=== PATIENT | male | born 1940 | race Caucasian/White ===

== ENCOUNTER 2017-10-09 11:29 | Outpatient (RCR) | payer SELFPAY | END 2017-10-09 23:59 | disposition home or self-care (01) | LOC: CR 11:29 | PROVIDERS: PCP Emergency Medicine; Visit Provider Family Medicine | DX: Z51.89 Encounter for other specified aftercare (principal) | CPT/HCPCS: S9472 ==

== ENCOUNTER 2017-11-04 11:18 | Outpatient (RCR) | payer SELFPAY | END 2017-11-08 23:59 | disposition home or self-care (01) | LOC: CR 11:18 | PROVIDERS: PCP Emergency Medicine; Visit Provider Family Medicine | DX: Z51.89 Encounter for other specified aftercare (principal) | CPT/HCPCS: S9472 ==

== ENCOUNTER 2017-12-09 11:00 | Outpatient (RCR) | payer SELFPAY | END 2017-12-09 23:59 | disposition home or self-care (01) | LOC: CR 11:00 | PROVIDERS: PCP Emergency Medicine; Visit Provider Family Medicine | DX: Z51.89 Encounter for other specified aftercare (principal) | CPT/HCPCS: S9472 ==

== ENCOUNTER 2018-01-08 13:24 | Outpatient (RCR) | payer SELFPAY | END 2018-01-08 23:59 | disposition home or self-care (01) | LOC: CR 13:24 | PROVIDERS: PCP Emergency Medicine; Visit Provider Family Medicine | DX: Z95.5 Presence of coronary angioplasty implant and graft (principal); I25.2 Old myocardial infarction; Z51.89 Encounter for other specified aftercare | CPT/HCPCS: S9472 ==

== ENCOUNTER 2018-02-08 12:48 | Outpatient (RCR) | payer SELFPAY | END 2018-02-08 23:59 | disposition home or self-care (01) | LOC: CR 12:48 | PROVIDERS: PCP Emergency Medicine; Visit Provider Family Medicine | DX: Z95.5 Presence of coronary angioplasty implant and graft (principal); I25.2 Old myocardial infarction; Z51.89 Encounter for other specified aftercare | CPT/HCPCS: S9472 ==

== ENCOUNTER 2018-03-08 11:39 | Outpatient (RCR) | payer SELFPAY | END 2018-03-11 23:59 | disposition home or self-care (01) | LOC: CR 11:39 | PROVIDERS: PCP Emergency Medicine; Visit Provider Family Medicine | DX: Z95.5 Presence of coronary angioplasty implant and graft (principal); I25.2 Old myocardial infarction; Z51.89 Encounter for other specified aftercare | CPT/HCPCS: S9472 ==

== ENCOUNTER 2018-03-31 00:23 | Outpatient (CLI) | payer MEDICARE, SELFPAY ==
--- NOTE | 2018-03-31 06:38 | MERGEMPI_ITS ---
*[facility]* *[facility]* [address] [place] [address] Myocardial Perfusion Imaging - SPECT Regadenoson Date of study: 03/31/2018 *PATIENT PRESENTATION* Height: 182.9cm (72in) Blood Pressure: Weight: 118.2kg (260lb) BSA: 2.49m^2 Referring physician: Charles Coronado MD Ordering physician: Charles Coronado MD Impressions: - Normal perfusion by Tc99m Sestamibi Imaging. - Abnormal contraction consistent with cardiomyopathy. Summary: 1. Myocardial perfusion imaging: No myocardial perfusion defects noted. 2. The calculated left ventricular ejection fraction after stress: 44%. Diffuse left ventricular regional motion abnormalities. There is mild hypokinesis. Indication: R07.9. History: REASON FOR TESTING: PATIENT REPORTS UNUSUAL FEELING IN MID CHEST OVER THE LAST WEEK WHICH IS NOT ASSOCIATED WITH ACTIVITY. THIS CHEST DISCOMFORT MAY HAPPEN DURING ACTIVITY AND DURING REST. HE DENIES CHEST PAIN/PRESSURE/DISCOMFORT UPON ARRIVAL TO TESTING TODAY. SIGNIFICANT PAST MEDICAL HISTORY: NON ST E[place]ATION [place]. S/P CARDIAC CATHETERIZATION AND STENTING OF HIS RCA IN 2013. SMOKING STATUS: QUIT 1983. HE SMOKED FOR 26 YEARS 2 PPD. EXERCISE ROUTINE: HE DOES CARDIAC REHAB 3 TIMES A WEEK. HE IS ALSO VERY ACTIVE WITH ADL'S AND YARD WORK. Risk factors: Family history of coronary artery disease. Hypertension. Obesity. Cholesterol: 84mg/dl. HDL: 49mg/dl. LDL: 27mg/dl. Triglycerides: 115mg/dl. ALLERGIES: NO KNOWN ALLERGIES. MEDICATIONS: METHOTREXATE SODIUM WEEKLY, ASPIRIN 81 MG DAILY, NITROGLYCERIN 0.4 MG SL PRN, ROSUVASTATIN 20 MG HS, ACETAMINOPHIN 500 MG TID, HYDROCHLOROTHIAZIDE 12.5 MG DAILY, PANTOPRAZOLE 40 MG DAILY, AMLODIPINE 5 MG DAILY, ALLOPURINOL 100 MG DAILY, MULTIVITAMIN DAILY. Imaging Technique: Protocol: Regadenoson. Acquisition: Gated SPECT; 1 day - rest/stress. The patient was imaged in the supine position. Attenuation correction used. Isotope administration: - Rest. Tc[99m]-sestamibi. Dose: 11.4mCi. Injection time: 08:25 AM. Injection to stress time: 00:45. - Stress. Tc[99m]-sestamibi. Dose: 37.3mCi. Injection time: 09:47 AM. 1-2 min before end of exercise Baseline ECG: SINUS BRADYCARDIA. T WAVE INVERSIONS IN LEAD III AND RIGHT BBB. HR 42. Stress protocol: +--------+--+ + + !Stage !HR!BP (mmHg) !Comments ! +--------+--+ + + !Baseline!42!140/70 (93)! ! +--------+--+ + + !1 min !55!140/66 (91)!Inject Regadenoson.! +--------+--+ + + !3 min !50!138/60 (86)! ! +--------+--+ + + !6 min !46!130/66 (87)! ! +--------+--+ + + * Stress results: LEXISCAN STRESS TEST ENDED IN 7 MINUTES. BRADYCARDIC AT BASELINE. NORMAL HEART RATE AND BLOOD PRESSURE RESPONSE TO LEXISCAN INJECTION. OCCASIONAL PVC'S BOTH AT REST AND AFTER LEXISCAN INJECTION. NO ANGINA. NO SIGNIFICANT ST SEGMENT CHANGES. The rate-pressure product for the peak heart rate and blood pressure was 7700mm Hg/min. Myocardial perfusion: Imaging information: gated. No myocardial perfusion defects noted. Ventricular Function (Wall Motion): The calculated left ventricular ejection fraction after stress: 44%. Diffuse left ventricular regional motion abnormalities. There is mild hypokinesis. Study data: Charles Coronado MD supervised and was readily available during the procedure. This study was interpreted by [facility]. Study status: Routine. Consent: The risks, benefits, and alternatives to the procedure were explained to the patient and informed consent was obtained. Procedure: Initial setup. A baseline ECG was recorded. Surface ECG leads and manual cuff blood pressure measurements were monitored. Heart sounds: Normal. Lung sounds: Normal. Regadenoson stress test. Stress testing was performed, with regadenoson by intravenous bolus, for a total dose of 0.4mgover 10.00sec, followed by a 5ml saline flush. The infusion was terminated due to per protocol. Study completion: All catheters inserted during the procedure were removed. The patient tolerated the procedure well and was discharged from the lab. Discharge: The patient left the laboratory in stable condition. Birthdate: Patient birthdate: 1940. Sex: Gender: male. Study date: Study date: 03/31/2018. Study time: 00:01 AM. Electronically signed by Charles Coronado MD 03/31/2018 15:23
[2018-03-31] MEDS: Regadenoson 0.4 MG/5 ML SYR IVP (09:10)
== END 2018-03-31 00:43 ==
PROVIDERS: PCP Emergency Medicine; Visit Provider Internal Medicine Interventional Cardiology
DX: R07.9 Chest pain, unspecified (principal); I10 Essential (primary) hypertension; Z82.49 Family history of ischemic heart disease and other diseases of the circulatory system; Z87.891 Personal history of nicotine dependence
CPT/HCPCS: 78452; 93016; 93018; 93017; J2785

== ENCOUNTER 2018-04-07 11:00 | Outpatient (RCR) | payer SELFPAY | END 2018-04-08 23:59 | disposition home or self-care (01) | LOC: CR 11:00 | PROVIDERS: PCP Emergency Medicine; Visit Provider Family Medicine | DX: Z95.5 Presence of coronary angioplasty implant and graft (principal); I25.2 Old myocardial infarction; Z51.89 Encounter for other specified aftercare | CPT/HCPCS: S9472 ==

== ENCOUNTER 2018-05-07 12:45 | Outpatient (RCR) | payer SELFPAY | END 2018-05-09 23:59 | disposition home or self-care (01) | LOC: CR 12:45 | PROVIDERS: PCP Emergency Medicine; Visit Provider Family Medicine | DX: Z95.5 Presence of coronary angioplasty implant and graft (principal); I25.2 Old myocardial infarction; Z51.89 Encounter for other specified aftercare | CPT/HCPCS: S9472 ==

== ENCOUNTER 2018-06-07 11:50 | Outpatient (RCR) | payer SELFPAY | END 2018-06-08 23:59 | disposition home or self-care (01) | LOC: CR 11:50 | PROVIDERS: PCP Emergency Medicine; Visit Provider Family Medicine | DX: Z95.5 Presence of coronary angioplasty implant and graft (principal); I25.2 Old myocardial infarction; Z51.89 Encounter for other specified aftercare | CPT/HCPCS: S9472 ==

== ENCOUNTER 2018-07-09 11:56 | Outpatient (RCR) | payer SELFPAY | END 2018-07-09 23:59 | disposition home or self-care (01) | LOC: CR 11:56 | PROVIDERS: PCP Emergency Medicine; Visit Provider Family Medicine | DX: Z95.5 Presence of coronary angioplasty implant and graft (principal); I25.2 Old myocardial infarction; Z51.89 Encounter for other specified aftercare | CPT/HCPCS: S9472 ==

== ENCOUNTER 2018-07-13 09:59 | Outpatient (CLI) | payer MEDICARE, SELFPAY ==
[2018-07-13 13:01] LABS: Hemoglobin A1C 5.6 % (4.5-6.2)
[2018-07-13 13:09] LABS: Anion Gap 11.4 mmol/L (3-11); BUN 15 mg/dL (7-18); CO2 26.6 mmol/L (21.0-32.0); CREATININE 1.11 mg/dL (0.70-1.30); Calcium 9.5 mg/dL (8.5-10.1); Calculated LDL 42; Chloride 102 mmol/L (98-107); Cholesterol 110 mg/dL (50-200); Glucose 114 mg/dL (70-100); HDL Cholesterol 48 mg/dL (40-60); Potassium 3.9 mmol/L (3.5-5.1); Sodium 140 mmol/L (136-145); Triglyceride 104 mg/dL (30-150)
== END 2018-07-13 10:19 ==
PROVIDERS: PCP Emergency Medicine; Visit Provider Emergency Medicine
DX: E11.9 Type 2 diabetes mellitus without complications (principal); I10 Essential (primary) hypertension
CPT/HCPCS: 36415; 80048; 80061; 83721; 83036

== ENCOUNTER → 2018-07-15 14:08 | Outpatient (BNVA) | payer MEDICARE, SELFPAY | PROVIDERS: PCP Emergency Medicine; Referring Provider Emergency Medicine; Visit Provider Orthopaedic Surgery | DX: M17.12 Unilateral primary osteoarthritis, left knee (principal); I10 Essential (primary) hypertension; E11.9 Type 2 diabetes mellitus without complications | CPT/HCPCS: 99211; 99213 ==

== ENCOUNTER → 2018-07-21 08:54 | Outpatient (BNVA) | payer MEDICARE, SELFPAY | PROVIDERS: PCP Emergency Medicine; Referring Provider Emergency Medicine; Visit Provider Orthopaedic Surgery | DX: M17.12 Unilateral primary osteoarthritis, left knee (principal) | CPT/HCPCS: 20610; 99211; 99212; J7325 ==

== ENCOUNTER 2018-08-06 11:29 | Outpatient (RCR) | payer SELFPAY | END 2018-08-08 23:59 | disposition home or self-care (01) | LOC: CR 11:29 | PROVIDERS: PCP Emergency Medicine; Visit Provider Family Medicine | DX: Z95.5 Presence of coronary angioplasty implant and graft (principal); I25.2 Old myocardial infarction; Z51.89 Encounter for other specified aftercare | CPT/HCPCS: S9472 ==

== ENCOUNTER 2018-08-18 01:58 | Outpatient (CLI) | payer MEDICARE, SELFPAY ==
--- NOTE | 2018-08-25 12:38 | HOLTER_ITS ---
DATE OF INTERPRETATION: August 25, 2018 STUDY INDICATIONS: Supraventricular tachycardia. REQUESTING PROVIDER: Charles Coronado M.D. FINDINGS: The patient was monitored for 1 day and 20 hours. The baseline rhythm was sinus rhythm. Average heart rate 59 bpm, range 39-142 bpm. Frequent premature ventricular contractions, 1,224 couplets, 175 triplets, 8,563 single premature ventricular contractions. Total premature ventricular contractions burden 7.3%. 28 ventricular runs, longest 5 beats, fastest 145 bpm. Occasional premature atrial contractions, 2484, 1.6% of total beats. 198 episodes of supraventricular tachycardia, longest episode 92 beats, fastest episode 177 bpm. There were no patient events.
== END 2018-08-18 02:18 ==
PROVIDERS: PCP Emergency Medicine; Visit Provider Internal Medicine Interventional Cardiology
DX: I47.1 Supraventricular tachycardia (principal); I49.3 Ventricular premature depolarization; I49.1 Atrial premature depolarization; I47.2 Ventricular tachycardia
CPT/HCPCS: 93225

== ENCOUNTER 2018-08-19 11:18 | Outpatient (CLI) | payer MEDICARE, SELFPAY ==
--- NOTE | 2018-08-19 09:00 | MERGE_ITS ---
*[facility]* *[facility]* [address] [place] [address] Date of study: 08/19/2018 Transthoracic Echocardiography M-mode, complete 2D, complete spectral Doppler, and color Doppler *STUDY CONCLUSIONS* Impressions: A sinus bradycardia rhythm was noted on this study, making this study technically difficult for the assessment of cardiac function. Summary: 1. Left ventricle: The cavity size was mildly to moderately dilated. Wall thickness was normal. Systolic function was at the lower limits of normal. The estimated ejection fraction was 50-55%. Wall motion was normal; there were no regional wall motion abnormalities. 2. Ascending aorta: The ascending aorta was mildly dilated. 3.8 cm. 3. Right ventricle: The cavity size was moderately dilated. Wall thickness was normal. Systolic function was normal. Minor axis dimension, ED (basilar, A4C): 4.9cm. *PATIENT PRESENTATION* Height: 182.9cm (72in ) S/D Pressure: 130 / 75 Weight: 120.2kg (264.4lb ) BSA: 2.51m^2 Test start time: 09:00 AM. Test stop time: 10:10 AM. CONSULTING Charles Coronado MD ORDERING Charles Coronado MD REFERRING Charles Coronado MD PERFORMING Unknown PERFORMING [facility] IN HOME SALES CONSULTANT RT Catarina (R)(TORI), MELINDA *PROCEDURE DATA* Procedure information: This study was interpreted by [facility]. Pertinent images and digital data are archived for permanent storage and are available for subsequent review. Comparison was made to the study of May 2002. Study status: Routine. Transthoracic echocardiography. M-mode, complete 2D, complete spectral Doppler, and color Doppler. A Transthoracic Echocardiogram was performed. Scanning was performed from the parasternal, apical, subcostal, and suprasternal notch acoustic windows. Images were obtained using an [id number] cardiac ultrasound machine. Image quality was adequate. Study completion: The patient tolerated the procedure well. There were no complications. History: PMH: SVT i47.1. *CARDIAC ANATOMY* Left ventricle: The cavity size was mildly to moderately dilated. Wall thickness was normal. Systolic function was at the lower limits of normal. The estimated ejection fraction was 50-55%. Wall motion was normal; there were no regional wall motion abnormalities. Diastolic parameters were normal. Aortic valve: Trileaflet; normal thickness leaflets. Mobility was not restricted. Doppler: Transvalvular velocity was within the normal range. There was no stenosis. There was no significant regurgitation. VTI ratio of LVOT to aortic valve: 0.66. Valve area (VTI): 2.7cm^2. Indexed valve area (VTI): 1.1cm^2/m^2. Peak velocity ratio of LVOT to aortic valve: 0.58. Valve area (Vmax): 2.4cm^2. Indexed valve area (Vmax): 1cm^2/m^2. Mean velocity ratio of LVOT to aortic valve: 0.61. Valve area (Vmean): 2.5cm^2. Indexed valve area (Vmean): 1cm^2/m^2. Mean gradient (S): 5.6mm Hg. Peak gradient (S): 9.5mm Hg. Aorta: Aortic root: The aortic root was normal in size. Ascending aorta: The ascending aorta was mildly dilated. 3.8 cm. Mitral valve: Structurally normal valve. Mobility was not restricted. Doppler: Transvalvular velocity was within the normal range. There was no evidence for stenosis. There was trivial regurgitation. Valve area by pressure half-time: 1.8cm^2. Indexed valve area by pressure half-time: 0.7cm^2/m^2. Left atrium: The atrium was normal in size. Right ventricle: The cavity size was moderately dilated. Wall thickness was normal. Systolic function was normal. Pulmonic valve: Structurally normal valve. Doppler: Transvalvular velocity was within the normal range. There was no evidence for stenosis. There was trivial regurgitation. Peak gradient (S): 5.1mm Hg. Tricuspid valve: Structurally normal valve. Doppler: Transvalvular velocity was within the normal range. There was no evidence for stenosis. There was trivial regurgitation. Pulmonary artery: Pulmonary systolic pressure was within the normal range, in the range of 30mm Hg to 35mm Hg. Right atrium: The atrium was normal in size. Pericardium: There was no pericardial effusion. Systemic veins: Inferior vena cava: Well visualized. The vessel was patent and normal in size. The respirophasic diameter changes were in the normal range (greater than or equal to 50%). Baseline ECG: Bradycardia. Measurements Left ventricle Value Reference LV ID, ED, PLAX (H) 6.6 cm 3.5 - 6.0 LV ID, ES, PLAX (H) 4.7 cm 2.1 - 4.0 LV PW thickness, ED, PLAX 0.9 cm LV end-diastolic volume, 1-p A2C 164 ml LV ejection fraction, 1-p A2C 51 % LV end-diastolic volume, 1-p A4C 162 ml LV ejection fraction, 1-p A4C 57 % LV e', lateral 0.088 m/sec LV E/e', lateral 6 LV e', medial 0.067 m/sec LV E/e', medial 7 LV e', average 0.077 m/sec LV E/e', average 6 Ventricular septum Value Reference IVS thickness, ED, PLAX 0.9 cm LVOT Value Reference LVOT ID, A-P 2.3 cm LVOT area 4.1 cm^2 LVOT peak velocity, S 0.9 m/sec LVOT mean velocity, S 0.7 m/sec LVOT VTI, S 24.9 cm LVOT peak gradient, S 3.2 mm Hg LVOT mean gradient, S 2.1 mm Hg Stroke volume (SV), LVOT DP 102 ml Stroke index (SV/bsa), LVOT DP 41 ml/m^2 Aortic valve Value Reference Aortic valve peak velocity, S 1.5 m/sec Aortic valve mean velocity, S 1.1 m/sec Aortic valve VTI, S 38.0 cm Aortic mean gradient, S 5.6 mm Hg Aortic peak gradient, S 9.5 mm Hg VTI ratio, LVOT/AV 0.66 Aortic valve area, VTI 2.7 cm^2 Velocity ratio, peak, LVOT/AV 0.58 Aortic valve area, peak velocity 2.4 cm^2 Velocity ratio, mean, LVOT/AV 0.61 Aortic valve area, mean velocity 2.5 cm^2 Aortic valve area/bsa, mean velocity 1 cm^2/m^2 Aorta Value Reference Aortic root ID, ED 3.3 cm Ascending aorta ID, A-P, S 3.8 cm RVOT Value Reference RVOT VTI, S 14.1 cm Left atrium Value Reference LA ID, A-P, ES 5.6 cm LA ID/bsa, A-P 2.2 cm/m^2 <=2.2 LA volume/bsa, ES, 1-p A4C 32 ml/m^2 LA volume, ES, 2-p 64 ml LA volume/bsa, ES, 2-p 26 ml/m^2 LA/aortic root ratio 1.73 Mitral valve Value Reference Mitral E-wave peak velocity 0.5 m/sec Mitral A-wave peak velocity 0.57 m/sec Mitral deceleration time (H) 434 ms 150 - 230 Mitral pressure half-time 126 ms Mitral E/A ratio, peak 0.87 Mitral valve area, PHT, DP 1.8 cm^2 Pulmonary veins Value Reference Pulmonary vein peak velocity, S 0.46 m/sec Pulmonary vein peak velocity, D 0.48 m/sec Pulmonary vein velocity ratio, peak, 0.97 S/D Pulmonary vein A-wave reversal peak 0.38 m/sec velocity Pulmonary vein A-wave reversal 202 ms duration Tricuspid valve Value Reference Tricuspid regurg peak velocity 2.8 m/sec Tricuspid peak RV-RA gradient 30.3 mm Hg Right atrium Value Reference RA area, ES, A4C (H) 19.8 cm^2 8.3 - 19.5 Right ventricle Value Reference RV ID, minor axis, ED, A4C base 4.9 cm Pulmonic valve Value Reference Pulmonic peak gradient, S 5.1 mm Hg Legend: (L) and (H) jan values outside specified reference range. I have personally reviewed the images and have reviewed and edited the reported findings. Electronically signed by Juan M Brown 08/19/2018 11:43
== END 2018-08-19 11:38 ==
PROVIDERS: Visit Provider Internal Medicine Interventional Cardiology
DX: I47.1 Supraventricular tachycardia (principal); R00.1 Bradycardia, unspecified; I25.2 Old myocardial infarction; Z95.5 Presence of coronary angioplasty implant and graft
CPT/HCPCS: 93306

== ENCOUNTER 2018-08-20 15:07 | Outpatient (CLI) | payer MEDICARE, SELFPAY | END 2018-08-20 15:27 | PROVIDERS: Visit Provider Internal Medicine Interventional Cardiology | DX: I47.1 Supraventricular tachycardia (principal); I49.3 Ventricular premature depolarization; I49.1 Atrial premature depolarization; I47.2 Ventricular tachycardia | CPT/HCPCS: 93226 ==

== ENCOUNTER 2018-08-25 08:29 | Outpatient (CLI) | payer MEDICARE, SELFPAY | END 2018-08-25 08:49 | PROVIDERS: PCP Emergency Medicine; Referring Provider Emergency Medicine; Visit Provider Student in an Organized Health Care Education/Training Program | DX: I47.1 Supraventricular tachycardia (principal); I49.3 Ventricular premature depolarization; I49.1 Atrial premature depolarization; I47.2 Ventricular tachycardia ==

== ENCOUNTER → 2018-09-02 10:50 | Outpatient (BNVA) | payer MEDICARE, SELFPAY | PROVIDERS: PCP Emergency Medicine; Referring Provider Emergency Medicine; Visit Provider Orthopaedic Surgery | DX: M17.12 Unilateral primary osteoarthritis, left knee (principal); Z98.890 Other specified postprocedural states | CPT/HCPCS: 99211; 99213 ==

== ENCOUNTER 2018-09-08 13:37 | Outpatient (RCR) | payer SELFPAY | END 2018-09-08 23:59 | disposition home or self-care (01) | LOC: CR 13:37 | PROVIDERS: PCP Emergency Medicine; Visit Provider Family Medicine | DX: Z95.5 Presence of coronary angioplasty implant and graft (principal); I25.2 Old myocardial infarction; Z51.89 Encounter for other specified aftercare | CPT/HCPCS: S9472 ==

== ENCOUNTER 2018-10-04 08:40 | Outpatient (CLI) | payer MEDICARE, SELFPAY | END 2018-10-04 09:00 | PROVIDERS: PCP Emergency Medicine; Visit Provider Internal Medicine Interventional Cardiology | DX: I47.1 Supraventricular tachycardia (principal); I25.10 Atherosclerotic heart disease of native coronary artery without angina pectoris; E78.5 Hyperlipidemia, unspecified; I42.9 Cardiomyopathy, unspecified; I49.3 Ventricular premature depolarization; I49.1 Atrial premature depolarization | CPT/HCPCS: 99214; 93005; 93010 ==

== ENCOUNTER → 2018-10-04 11:36 | Outpatient (BNVA) | payer MEDICARE, SELFPAY | PROVIDERS: PCP Emergency Medicine; Visit Provider Internal Medicine Interventional Cardiology | DX: I42.9 Cardiomyopathy, unspecified (principal); I49.3 Ventricular premature depolarization; I49.1 Atrial premature depolarization; I25.10 Atherosclerotic heart disease of native coronary artery without angina pectoris | CPT/HCPCS: 99214 ==

== ENCOUNTER 2018-10-08 10:35 | Outpatient (RCR) | payer SELFPAY | END 2018-10-09 23:59 | disposition home or self-care (01) | LOC: CR 10:35 | PROVIDERS: PCP Emergency Medicine; Visit Provider Family Medicine | DX: Z95.5 Presence of coronary angioplasty implant and graft (principal); I25.2 Old myocardial infarction; Z51.89 Encounter for other specified aftercare | CPT/HCPCS: S9472 ==

== ENCOUNTER 2018-10-19 00:50 | Outpatient (CLI) | payer MEDICARE, SELFPAY ==
--- NOTE | 2018-10-25 11:10 | HOLTER_ITS ---
DATE OF DICTATION: October 25, 2018 STUDY INDICATION: SVT REQUESTING PROVIDER: Not available. FINDINGS: The patient was monitored for two days. Baseline rhythm sinus rhythm with nonspecific intraventricular conduction delay. Average heart rate 51 bpm, range 37 to 101 bpm. Rare ventricular ectopy. 0.7% PVC's. One 4-beat ventricular run, 174 bpm. Rare supraventricular ectopy, 0.3% PAC's. 35 atrial runs, longest 17 beats, fastest 158 bpm. No high-degree heart block. No pauses greater than 3 seconds. No patient events. FINAL INTERPRETATION: Rare ventricular and supraventricular tachyarrhythmias, asymptomatic.
== END 2018-10-19 01:10 ==
PROVIDERS: PCP Emergency Medicine; Visit Provider Internal Medicine Interventional Cardiology
DX: I47.1 Supraventricular tachycardia (principal); I47.2 Ventricular tachycardia; R07.89 Other chest pain
CPT/HCPCS: 93225

== ENCOUNTER 2018-10-22 12:55 | Outpatient (CLI) | payer MEDICARE, SELFPAY | END 2018-10-22 13:15 | PROVIDERS: PCP Emergency Medicine; Visit Provider Internal Medicine Interventional Cardiology | DX: I47.1 Supraventricular tachycardia (principal); I47.2 Ventricular tachycardia; R07.89 Other chest pain | CPT/HCPCS: 93226 ==

== ENCOUNTER 2018-10-25 08:33 | Outpatient (CLI) | payer MEDICARE, SELFPAY | END 2018-10-25 08:53 | PROVIDERS: PCP Emergency Medicine; Referring Provider Emergency Medicine; Visit Provider Student in an Organized Health Care Education/Training Program | DX: I47.1 Supraventricular tachycardia (principal); I47.2 Ventricular tachycardia; R07.89 Other chest pain | CPT/HCPCS: 93227 ==

== ENCOUNTER 2018-11-08 11:00 | Outpatient (RCR) | payer SELFPAY | END 2018-11-08 23:59 | disposition home or self-care (01) | LOC: CR 11:00 | PROVIDERS: PCP Emergency Medicine; Visit Provider Family Medicine | DX: Z95.5 Presence of coronary angioplasty implant and graft (principal); I25.2 Old myocardial infarction; Z51.89 Encounter for other specified aftercare | CPT/HCPCS: S9472 ==

== ENCOUNTER 2018-12-08 11:44 | Outpatient (RCR) | payer SELFPAY | END 2018-12-09 23:59 | disposition home or self-care (01) | LOC: CR 11:44 | PROVIDERS: PCP Emergency Medicine; Visit Provider Family Medicine | DX: Z95.5 Presence of coronary angioplasty implant and graft (principal); I25.2 Old myocardial infarction; Z51.89 Encounter for other specified aftercare | CPT/HCPCS: S9472 ==

== ENCOUNTER 2018-12-28 07:00 | Outpatient (CLI) | payer MEDICARE, SELFPAY ==
[2018-12-28 11:06] LABS: Hemoglobin A1C 5.8 % (4.5-6.2)
== END 2018-12-28 07:20 ==
PROVIDERS: PCP Emergency Medicine; Visit Provider Emergency Medicine
DX: E11.9 Type 2 diabetes mellitus without complications (principal)
CPT/HCPCS: 36415; 83036

== ENCOUNTER 2019-01-05 11:47 | Outpatient (RCR) | payer SELFPAY | END 2019-01-08 23:59 | disposition home or self-care (01) | LOC: CR 11:47 | PROVIDERS: PCP Emergency Medicine; Visit Provider Family Medicine | DX: Z95.5 Presence of coronary angioplasty implant and graft (principal); I25.2 Old myocardial infarction; Z51.89 Encounter for other specified aftercare | CPT/HCPCS: S9472 ==

== ENCOUNTER → 2019-01-17 08:55 | Outpatient (BNVA) | payer MEDICARE, SELFPAY | PROVIDERS: PCP Emergency Medicine; Referring Provider Emergency Medicine; Visit Provider Student in an Organized Health Care Education/Training Program | DX: M17.12 Unilateral primary osteoarthritis, left knee (principal) | CPT/HCPCS: 20610; 99213; J1040 ==

== ENCOUNTER 2019-02-04 14:02 | Outpatient (RCR) | payer SELFPAY | END 2019-02-08 23:59 | disposition home or self-care (01) | LOC: CR 14:02 | PROVIDERS: PCP Emergency Medicine; Visit Provider Family Medicine | DX: Z95.5 Presence of coronary angioplasty implant and graft (principal); I25.2 Old myocardial infarction; Z51.89 Encounter for other specified aftercare | CPT/HCPCS: S9472 ==

== ENCOUNTER 2019-03-11 11:00 | Outpatient (RCR) | payer SELFPAY | END 2019-03-11 23:59 | disposition home or self-care (01) | LOC: CR 11:00 | PROVIDERS: PCP Emergency Medicine; Visit Provider Family Medicine | DX: Z95.5 Presence of coronary angioplasty implant and graft (principal); I25.2 Old myocardial infarction; Z51.89 Encounter for other specified aftercare | CPT/HCPCS: S9472 ==

== ENCOUNTER 2019-04-08 13:33 | Outpatient (RCR) | payer SELFPAY | END 2019-04-09 23:59 | disposition home or self-care (01) | LOC: CR 13:33 | PROVIDERS: PCP Emergency Medicine; Visit Provider Family Medicine | DX: Z95.5 Presence of coronary angioplasty implant and graft (principal); I25.2 Old myocardial infarction; Z51.89 Encounter for other specified aftercare | CPT/HCPCS: S9472 ==

== ENCOUNTER 2019-04-10 02:53 | Outpatient (RCR) | payer SELFPAY | END 2019-05-10 23:59 | disposition home or self-care (01) | LOC: CR 02:53 | PROVIDERS: PCP Emergency Medicine; Visit Provider Family Medicine | DX: Z95.5 Presence of coronary angioplasty implant and graft (principal); I25.2 Old myocardial infarction; Z51.89 Encounter for other specified aftercare | CPT/HCPCS: S9472 ==

== ENCOUNTER 2019-04-12 14:33 | Outpatient (CLI) | payer MEDICARE, SELFPAY ==
[2019-04-12 15:21] LABS: HCT 42.4 % (40.0-50.0); HGB 14.1 g/dL (13.5-17.5); Mean Corp. HGB Concentration 33.3 g/dL (32.0-36.0); Mean Corpuscular Hemoglobin 30.4 pg (27.0-33.0); Mean Corpuscular Volume 91.4 fL (80-95); Mean Platelet Volume 9.8 fL (8.0-11.0); Platelet Count 253 x1000/uL (130-400); RBC 4.64 m/cumm (4.50-6.00); RBC Distribution Width 12.6 % (11.8-14.1); White Blood Cell Count 6.69 k/cumm (4.4-10.8)
[2019-04-12 15:56] LABS: Anion Gap 8.3 mmol/L (3-11); BUN 11 mg/dL (7-18); CO2 27.7 mmol/L (21.0-32.0); Calcium 8.9 mg/dL (8.5-10.1); Chloride 104 mmol/L (98-107); Glucose 93 mg/dL (74-106); Potassium 4.3 mmol/L (3.5-5.1); Sodium 140 mmol/L (136-145)
== END 2019-04-12 14:53 ==
PROVIDERS: PCP Emergency Medicine; Visit Provider Student in an Organized Health Care Education/Training Program
DX: M25.562 Pain in left knee (principal); M17.12 Unilateral primary osteoarthritis, left knee; Z01.818 Encounter for other preprocedural examination; Z01.812 Encounter for preprocedural laboratory examination; I10 Essential (primary) hypertension; E11.9 Type 2 diabetes mellitus without complications; I25.10 Atherosclerotic heart disease of native coronary artery without angina pectoris
CPT/HCPCS: 36415; 80048; 85027

== ENCOUNTER 2019-04-12 15:25 | Outpatient (CLI) | payer MEDICARE, SELFPAY ==
--- NOTE | 2019-04-12 15:13 | DI.RAD_ITS ---
EXAM: XR STANDING ALIGNMENT CLINICAL HISTORY: preoperative planning. TECHNIQUE: 2D digital imaging was performed. COMPARISON: No exams were available for comparison FINDINGS: BONES: No acute fracture is present. No bony destructive lesion is seen. Visualized portion of knee a nd hip joints are unremarkable. In the left knee, there are degenerative changes characterized by mi ld narrowing of the medial joint compartment and periarticular spurring, both medially and laterally. In the right knee, there is mild narrowing of the medial joint compartment. The right lower extrem ity measures 99.3 cm. The left lower extremity measures 99.3 cm. SOFT TISSUE: Normal. IMPRESSION: Bilateral osteoarthritis of the knees, left greater than right. DATA REPOSITORY: RADIATION DOSE DELIVERED:
== END 2019-04-12 15:45 ==
PROVIDERS: PCP Emergency Medicine; Visit Provider Physician Assistant
DX: M17.0 Bilateral primary osteoarthritis of knee (principal); M25.562 Pain in left knee; Z01.818 Encounter for other preprocedural examination; Z01.812 Encounter for preprocedural laboratory examination; I10 Essential (primary) hypertension; E11.9 Type 2 diabetes mellitus without complications; I25.10 Atherosclerotic heart disease of native coronary artery without angina pectoris; M17.12 Unilateral primary osteoarthritis, left knee
CPT/HCPCS: 36415; 80048; 85027; 77073

== ENCOUNTER 2019-04-13 15:51 | Outpatient (CLI) | payer MEDICARE, SELFPAY ==
--- NOTE | 2019-04-13 15:45 | DI.RAD_ITS ---
EXAM: XR KNEE RT 2V AP,LAT CLINICAL HISTORY: knee pain. TECHNIQUE: 2D digital imaging was performed. COMPARISON: No previous for comparison FINDINGS: BONES: No acute fracture is present. No bony destructive lesion is seen. JOINTS: The knee is normally aligned. There is a moderate joint effusion. There is mild narrowing of the medial femoral tibial joint space. Periarticular spurring is seen both laterally and of the pat ellofemoral joint. SOFT TISSUE: Vascular calcifications are present. IMPRESSION: Mild degenerative changes of the right knee. Moderate joint effusion. DATA REPOSITORY: RADIATION DOSE DELIVERED:
[2019-04-13 18:03] LABS: Clarity CLOUDY; Source R KNEE
[2019-04-13 18:04] LABS: Mononuclear Cells 93 % (0-0); Nucleated Cells 207 /MM3 (0-0); Polynuclear Cells 7 % (0-0)
== END 2019-04-13 16:11 ==
PROVIDERS: PCP Emergency Medicine; Referring Provider Emergency Medicine; Visit Provider Student in an Organized Health Care Education/Training Program
DX: M25.561 Pain in right knee (principal); M25.461 Effusion, right knee; M17.11 Unilateral primary osteoarthritis, right knee
CPT/HCPCS: 20610; 99214; 73560; 87070; 87205; 89051; 89060; J1040

== ENCOUNTER 2019-04-19 07:49 | Inpatient (IN) | payer MEDICARE, SELFPAY ==
[2019-04-19] VITALS (11 sets, daily range): BP systolic 101–139; BP diastolic 34–75; PULSE 41–52; RESP 12–18; TEMP 36.3–36.9; O2SAT 95–98
[2019-04-19] MEDS: Lactated Ringers 1,000 ML 80 ML IV ×4 (08:35→20:28)
[2019-04-19] MEDS: Celecoxib 200 MG CAP 400 MG PO (09:48)
[2019-04-19] MEDS: Acetaminophen 500 MG TAB 1000 MG PO ×2 (09:48→17:55)
[2019-04-19] MEDS: Gabapentin 300 MG CAP PO ×2 (09:48→21:19)
[2019-04-19] MEDS: ceFAZolin 3,000 MG in Normal Saline 100 ML 200 MG IVPB (10:48)
[2019-04-19] MEDS: Normal Saline 20 ML VIAL (11:59)
[2019-04-19] MEDS: Bupivacaine 0.25% Pres-Free 30 ML VIAL (11:59)
[2019-04-19] MEDS: Ketorolac 30 MG/ML VIAL (11:59)
--- NOTE | 2019-04-19 15:13 | PT.INIE ---
Date of service: 04/19/19 Time of Service: 15:13 PT Notes Physical Therapy Inpatient Initial Evaluation Date: 04/19/2019 Referring Doctor: Júnior Mace MD PT Orders: PT CONSULT: Status post Ortho surgery Precautions: Fall. Standard. WBAT on left LE. Patient Profile/Admitting Diagnosis: Patient is a 78-year-old male who is status post left knee total arthroplasty on POD 0 due to degenerative joint disease of the left knee. PMHX: Medical History (Updated 04/12/19 @ 15:20 by Torrie Hernandez) Acute coronary syndrome (Chronic) Bundle branch block (Chronic) right Cataract (Resolved) Diabetes mellitus (Chronic 10/19/12) Diverticulosis of colon without diverticulitis (Chronic) Gout (Chronic) Hypertension (Chronic) NSTEMI (non-ST elevated myocardial infarction) (Chronic 06/28/13) june 2013. RCA stent Obesity (Chronic) BMI of 37.1 Peripheral polyneuropathy (Chronic 11/20/15) 11/24 bilat. plantar forefeet Psoriasis (Chronic) Psoriatic arthritis (Chronic) Tinnitus, bilateral (Chronic 10/09/16) Surgical History (Updated 04/12/19 @ 15:20 by Torrie Hernandez) Colon polyps (Acute) Reports history of polyp removal Colonoscopy - MAC (07/12/16) Status post bilateral cataract extraction (Acute) Social History/Home Situation: Patient lives with Benita in a split-level house with 7 steps that lead to a landing and another 7 steps that lead to the entrance of the house with a rail on the right side going up. Patient is independent with all aspects of ADLs prior to admission. 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 Equipment Owned/DME: Front wheeled walker, SPC Subjective: Patient is agreeable to a PT consult. He reports 1/10 pain on the left knee after walking about 100 feet. Denies any headache, chest pain, and lightheadedness. He did say that he is hungry as he has not had anything to eat since 9:00 PM last night. He states that he could manage walking the hallway without a walker but was amenable to using a walker for today with a plan of progressing to a less restrictive device as needed tomorrow. He states that last week he volunteered at the [employer] for Thursday and had significant right knee pain for which he got an injection today. Objective: General Observation: Huber catheter in place. IV in the right UE. TEDS the right leg. Mental Status: Alert and oriented x4 Pain: 1/10 on the left knee with ambulation Vital Signs: 131/69 mmHg, 45 bpm, 94% on room air all taken in the sitting position. ROM: Right Upper Extremity: Shoulder Flexion WFL. Shoulder abduction WFL. Elbow flexion WFL. Wrist flexion WFL. Opening and closing of hand WFL. Left Upper Extremity: Shoulder Flexion WFL. Shoulder abduction WFL. Elbow flexion WFL. Wrist flexion WFL. Opening and closing of hand WFL. Right Lower Extremity: Hip flexion WFL. Hip abduction WFL. Knee flexion WFL. Ankle dorsiflexion WFL. Ankle plantarflexion WFL. Left Lower Extremity: Hip flexion WFL. Hip abduction WFL. Knee flexion -18 to 115 degrees. Knee extension -18 degrees. Ankle dorsiflexion WFL. Ankle plantarflexion WFL. Strength: Right Upper Extremity: Shoulder flexors 5/5. Shoulder abductors 5/5. Elbow flexors 5/5. Elbow extensors 5/5. Missileman strong. Left Upper Extremity: Shoulder flexors 5/5. Shoulder abductors 5/5. Elbow flexors 5/5. Elbow extensors 5/5. Missileman strong. Right Lower Extremity: Hip flexors 5/5. Hip abductors 5/5. Knee flexors 5/5. Knee extensors 5/5. Ankle dorsiflexors 5/5. Ankle plantarflexors 5/5. Left Lower Extremity:Hip flexors 5/5. Hip abductors 5/5. Knee flexors 3- /5. Knee extensors 3-/5. Ankle dorsiflexors 5/5. Ankle plantarflexors 5/5. Sensation: Intact as to pain and pressure on bilateral lower extremities. Bed Mobility/Transfers: Rolling SBA with HOB flat Supine to sit SBA with HOB flat Sit to supine SBA with HOB flat Sit to stand CGA Stand to sit CGA Bed to chair CGA Chair to bed CGA Gait: Patient tolerated level surface ambulation of 200 feet using front wheeled walker with WBAT on the left LE with CGA demonstrating reciprocal step through gait pattern with only 1/10 report of pain on the left knee but denies pain on the right knee, denies headache, dizziness, and chest pain. Balance: Static Sitting: Normal Dynamic Sitting: Normal 22 Static Standing: Fair Dynamic Standing: Fair Special Tests: Mobility Limitations Standardized Measure [facility] 6 clicks Basic Mobility Inpatient Short Form: Raw Score: 22 CMS Score: 21% deficit Informed Consent/Education: Patient instructed in purpose of PT consult and plan of care. Patient was instructed on before performing seated knee extension exercises, seated hip flexion exercises, and heel/toe raises x 10 every hour. Assessment: Difficulty in walking, impaired mobility ADL performance, balance impairment, and weakness of left hip and knee muscle groups resulting from current diagnosis. Patient is a 78-year-old highly motivated male who is status post left knee total arthroplasty on POD 0 due to degenerative joint disease of the left knee. Patient presents with clinical signs and symptoms consistent with current/admitting diagnoses that have resulted to mobility limitations, gait instability, generalized weakness, and impairment of motor control as demonstrated by the following impairment level findings: 1. Decreased strength to L LE major muscle groups 2. Impaired standing balance 3. Impaired activity tolerance 4. Limitation of joint range of motion in left knee Impairments are contributing to the following functional limitations: 1. Dependent bed mobility skills 2. Increased dependence with transfers 3. Inability to safely ambulate without assistive device and physical assistance 4. Increase completion time for mobility ADL performance 5. Increased fall risk 6. Inability to negotiate steps alone safely Patient is assessed as a 24493 moderate complexity based on the following: History: 78-year-old male with past medical history, impairment level findings, functional impairments, and [facility] deficits score of 21% Examination: Demonstrable impairment in strength, balance, and range of motion with underlying impairments and functional limitations as documented above Presentation: Stable Decision Makin moderate complexity Goals: Goals X1 week 1. Supine-Sit independent 2. Sit-Supine independent 3. Sit-Stand independent 4. Stand-Sit independent 5. Bed-Chair independent 6. Chair-Bed independent 7. Independent gait on level surface with use of least restrictive device for at least 300 feet without report of pain nor dyspnea 8. Independent stair negotiation while holding onto bilateral rails for at least 15 steps without report of pain nor dyspnea 9. Independent with home exercise program 10. Good static and dynamic standing balance/tolerance Plan of Care/Treatment Plan: 1-2x/day, 7 days/week x 1 week. Plan of care has been reviewed with the [employer] providing the service under Physical Therapy direction. Initiate Physical Therapy intervention for strengthening, bed mobility, transfers, gait, stairs, balance training, use of assistive device. DISCHARGE RECOMMENDATIONS: May benefit from skilled physical therapy services according to orthopedic surgeon's timeline recommendations. Patient will be educated and trained on home exercise program per TKA exercise protocol in preparation for outpatient physical therapy services. TREATMENT CODE/TIME: 9716 2 x 30 minutes beginning at 15:13 p.m. Thank you very much for this referral. Haleigh Munoz PT, DPT, CLT [facility] [place], [place]
[2019-04-19] MEDS: ceFAZolin 1 GM/50 ML BAG IVPB (16:35)
[2019-04-19] MEDS: Aspirin E.C. 81 MG TABEC PO (20:29)
[2019-04-19] MEDS: Celecoxib 200 MG CAP PO (20:29)
--- NOTE | 2019-04-19 20:55 | W.PM.OP ---
Date of service: 04/19/19 Time of Service: 13:55 Operative Note Operative Note DATE OF PROCEDURE: 04/19/19 PRE-OP DIAGNOSIS: Left Knee Osteoarthritis POST-OP DIAGNOSIS: same PROCEDURE: Left Total Knee Replacement SURGEON: Júnior Mace MANAGER PACKAGING: Luisa Henriquez ANESTHESIA: regional and spinal ESTIMATED BLOOD LOSS: 200 PATHOLOGY: none sent TOURNIQUET TIME: 31 COMPLICATIONS: None Patient was transported to: PACU Patient's condition: stable Implants: 1. Depuy Attune Posterior Stabilized Femoral Component, Size 8 2. Depuy Attune Fixed Platform Tibial Component, Size 7 3. Depuy Attune 8x7mm Fixed, Stabilized Poly 4. Depuy Attune Patellar Component, Size 41mm Indications: I have seen Bayron in clinic for symptoms of left knee arthritis, confirmed with radiographic findings. Bayron has exhausted nonoperative methods and was having significant limitations in daily function and desired better function and less pain. I discussed the technical details of a knee replacement. I explained the risks of the procedure to include, but not limited to, bleeding, infection, pain, stiffness, fracture, damage to nerves and vessels, damage to muscles and tendons, loosening, need for repeat procedure, blood clot and cardiopulmonary demise. Despite these risks, Bayron elected to proceed. Findings: There was significant signs of arthritis throughout the knee. Procedure Description: Bayron was greeted in the preoperative holding area where the correct side was identified and marked. The consent was reviewed with the patient and signed. The history and physical was updated. All questions were answered. Preoperative mediacations were administered: Acetaminophen 1000mg, Celebrex 400mg, and Gabapentin 300mg. An adductor canal block was then administered by the anesthesia team in the PACU. Bayron was taken back to the operating room. A spinal anesthestic was then administered. The patient was placed into the supine position on the operating room table. A nonsterile tourniquet was placed high onto the leg but only used for cementing. Posts were placed for positioning during the procedure. All bony prominences were well padded. Prophylactic antibiotics in the form of Cefazolin were administered. 1g of Tranxemic Acid was given intravenously within 30 minutes of incision. The left leg was then prepped with Chloraprep and draped in a standard fashion with impervious stockinette and extremity drape. A second prep with Chloraprep was performed prior to placing Ioband. A timeout to confirm correct identity, side and site, procedure, allergies, anesthesia, and medical concerns was performed. With the knee in some flexion, a midline incision was made overlying the knee. Full thickness skin flaps were raised once the extensor mechanism was encountered. These were raised medially and laterally. Any bleeding was controlled with electrocautery. Once the extensor mechanism was fully exposed, a medial parapatellar arthrotomy was performed in a flexed position. All bleeding from the arthrotomy and the geniculate arteries was coagulated. A medial subperiosteal peel was performed with electrocautery to the midcoronal plane. The fat pad was removed while keeping the patellar tendon protected. The anterior distal femur synovium was removed for later visualization. The ACL and PCL were resected and the anterior horn of the lateral meniscus was transected. The knee was then flexed with the patella everted. Large osteophytes from the tibia were removed. Large osteophytes from the femur were removed. Using a step drill, and based on preoperative templating, the femoral canal was entered. This was done with a step drill without any difficulty. The intramedullary distal femoral cut guide was inserted, set to a 5 degree valgus cut and 9mm cut thickness. The distal femoral cut guide was then held in position and pinned. With the soft tissues protected, the distal cut was performed. This was passed over a few times to ensure a planar cut. I then turned attention to the tibia. The extramedullary guide was placed onto the leg. The distal aspect was slid medial to adjust for position of center of ankle and stay in line with shaft of the tibia. Approximately 3-5 degrees of posterior slope was kept in the proximal cutting guide. The center of the guide was aligned with the PCL. The stylus was used to assess cut thickness. The medial side, most involved side, was set for a 3mm cut, 9mm off of the lateral side. This was then held in position and pinned into place with 2 additional pins and a cross pin for stability. The medial and lateral collateral ligaments were protected and the cut was performed. With this completed, it was assessed and noted to be of appropriate dimensions. The guide was removed. A spacer block was inserted and the knee was brought into extension. The 6mm spacer block provided full extension, without hyperextension and with stability of both the medial and lateral collateral ligaments was assessed. The pins from the femur and the tibia were then removed. The distal femur was then sized. The anterior stylus was placed onto the lateral ridge of the anterior femur. This indicated a size 8 femur. The external rotation of the guide was adjusted to 3 degrees to match the epicondylar axis, perpendicular to [place]?s line. The 4-in-1 cutting guide was the placed. The posterior medial femur cut was evaluated and appeared of good thickness. The spacer block was inserted underneath the cutting guide and stability was confirmed in 90 degrees of flexion. An stella wing was used to confirm appropriate position of the anterior cut to avoid notching. This cutting guide was ensured to be flush on the cut surface and then pinned into place with headed pins. While protecting the soft tissues, quad tendon, and collateral ligaments, the anterior and posterior cuts were performed with a saw. The central two pins were removed and the posterior and anterior chamfers were cut next. The notch-cutting guide was placed. This was pinned to lateralize the femoral component as much as possible while keeping it flush on the cut surface. This was then pinned into position. A reciprocating saw was used to make the notch cut. A rasp smoothed the cut surfaces. A trial posterior stabilized femoral component was then inserted, impacted down to the cut surfaces, and the lug holes were drilled. A provisional trial tibial component was placed and the knee was brought through range of motion. The polyethylene was trialed until there was good flexion and extension with excellent stability to the medial and lateral collaterals. The patella was tracking without thumbs. The tibial cut surface was fully exposed. The medial and lateral menisci were removed. The tibia was then sized as a 7. The tibia had been previously marked during trialing to correspond to the center of the tibial component to help with rotation. The trial was aligned to this jan, approximately rotated to the medial 1/3rd of the tibial tubercle. The trial was pinned into place. The tibia was prepared with a reamer and a keel punch. The knee was then brought into extension and the patella was measured as 33mm. Using the patellar clamp and cut guide, this was resected to a flat surface with at least 13mm of thickness remaining. The size 41 patella fit the best. This was oriented and then clamped into position. The lugs were drilled. The trial components were removed. The final components, except for the polyethylene were opened on the back table. The periosteal and capsular tissues, especially posteriorly, around the knee were then systematically injected with a periarticular cocktail consisting of 50cc 0.25% Marcaine, 30mg Ketorolac, 20cc of Exparal and 50cc of injectable saline. The tourniquet was then inflated to 275mmHg. The knee was thoroughly irrigated with a pulse lavage and dried. On the back table, with the implants opened, the cement was mixed. 2 batches of antibiotic laden cement were prepared with vacuum assistance. After the cement was ready it was placed on to the back side of the tibial component. A small amount was placed onto the posterior flange of the femur. Cement was manual pressurized and impregnated into the cut surface of the tibia. The tibial component was then inserted into the cut surface and impacted into position. Excess cement was removed and the component was reimpacted. Again, excess cement was removed and our attention was then turned to the femur. The femoral cut surface was once again dried and cement was manually impacted into the cut surface. The femoral component was lined with the lug holes and impacted. Excess cement was removed. It was ensured to be down against the cut surface. The trial polyethylene was then inserted and the leg was brought out into full extension for the duration of the cement curing process, approximately 15min. Cement was lastly manually impacted into the cut surface of the patella and the patellar button was clamped into position and held. During this process attention was turned to the gutters of the knee and for all interfaces for any excess cement. While the cement was hardening, the knee was irrigated with Irrisept chlorhexadine solution. It was allowed to sit in the knee for 3 minutes. After the cement had finally cured, approximately 15min, the clamp was removed from the patella and the knee was taken through range of motion. A size 7mm polyethylene component provided the best range of motion and stability with less than 2mm gapping with medial and lateral stress and full extension without significant hyperextension. The patella was tracking with a no-thumbs technique. The trial poly was removed and once again the knee was checked for any loose, excess, or errant cement. The poly component was then inserted and impacted into position after cleaning and drying the tibial tray. The capsule was then reapproximated with a No. 1 Vicryl at multiple locations. The capsule was finally closed with a No. 2 Stratafix, barbed suture. The tourniquet was then released and the arthrotomy appeared watertight without significant bleeding. The second dosing of 1g TXA was started. Deep tissues were then reapproximated with 0 Vicryl and 2-0 Vicryl. The skin was closed with a running 3-0 Monocryl in a subcuticular fashion. This was reinforced with skin glue. A Mepilex silver dressing was applied along with a [id number] SP wrap. A CryoCuff was applied. Bayron was transferred to the hospital bed without difficulty an suffering no apparent complication. Bayron has a good prognosis. Physical therapy will start today and without restrictions, weight-bearing as tolerated. Aspirin 81mg BID will be used for DVT prophylaxis.
[2019-04-19] MEDS: oxyCODONE 5 MG TAB PO (21:19)
[2019-04-19] MEDS: ROSUVASTATIN 20 MG TAB PO (21:19)
[2019-04-20] MEDS: ceFAZolin 1 GM/50 ML BAG IVPB ×2 (00:17→09:00)
[2019-04-20 04:25] VITALS: BP 127/75; PULSE 52; RESP 19; TEMP 36.9; O2SAT 96
--- NOTE | 2019-04-20 07:39 | W.PM.DS.N ---
Date of service: 04/20/19 Time of Service: 07:39 DS: Diagnosis Discharge Diagnosis (1) Primary osteoarthritis of left knee: Status: Chronic Discharge Plan Disposition Patient Disposition: HOME Condition: Good Discharge Details Reason For Visit: LEFT KNEE DJD Admit Date/Time: 04/19/19 07:49 Admit Provider: Júnior Mace Attending Provider: Júnior Mace Primary Care Provider: Raj George Hospital Course Hospital Course: Patient was admitted to the medical/surgical floor following the procedure. It was tolerated well without any notable medical, surgical, or anesthetic complications. Mobilization began postoperatively. The ansari catheter was removed and voiding spontaneously. Vitals were stable. Physical therapy worked with the patient and was cleared for discharge home. No acute medical issues. Home Meds and New Rx's Prescriptions: New acetaminophen 500 mg tablet 1,000 mg PO Q8H PRN (Reason: pain) Qty: 90 RF: 3 gabapentin 300 mg capsule 300 mg PO QHS Qty: 7 RF: 0 oxycodone 5 mg tablet 5 mg PO Q4H Qty: 12 RF: 0 ibuprofen 400 mg tablet 400 mg PO Q6H PRN (Reason: pain) Qty: 60 RF: 3 Continued metoprolol tartrate 25 mg tablet 25 mg PO BID RF: 0 mupirocin 2 % ointment 1 applic TP TID Qty: 22 RF: 0 nitroglycerin 0.4 MG tablet, sublingual 0.4 mg Sublingual PRN RF: 0 amlodipine [Norvasc] 5 mg tablet 5 mg PO QAM Qty: 90 RF: 4 pantoprazole 40 mg tablet,delayed release (DR/EC) 40 mg PO DAILY Qty: 90 RF: 3 rosuvastatin 20 mg tablet 20 mg PO HS Qty: 90 RF: 3 allopurinol 100 mg tablet 100 mg PO DAILY Qty: 90 RF: 4 hydrochlorothiazide 12.5 mg tablet 12.5 mg PO DAILY Qty: 90 RF: 4 [id number]-zziroxg-harcbtncq 1-0.5-0.1 % Drops,Suspension 1 drp OPHTHALMIC (EYE) DAILY RF: 0 Changed aspirin [Aspir-81] 81 MG tablet,delayed release (DR/EC) 81 mg PO BID Qty: 60 RF: 0 Discontinued acetaminophen 500 MG tablet 500 mg PO TID RF: 0 acetaminophen [Tylenol Extra Strength] 500 mg Tablet 500 mg PO Q6H PRNRF: 0 ibuprofen [Advil] 100 mg Tablet 100 mg PO Q6H PRNRF: 0 Discharge Instructions Additional Instructions: Dr. Mace?s Total Knee Discharge Instructions Activity: The most important activity is to walk. You should try to take short walks a few times a day. It is important that when resting you work on keeping the knee straight. Avoid putting a pillow behind the knee as this will encourage flexion. Work on range of motion exercises as provided by Physical Therapy. - Start outpatient physical therapy within 2 weeks. - You should wear the BERNARDINO hose on both legs for 2 weeks. Dressing: Keep the surgical dressing in place for at least one week. After the first week it may be removed and replace with light gauze and tape or nothing. It may get wet after 3 days but avoid soaking the dressing. If it gets wet, just lightly pat dry. Medications: - You should take Tylenol and anti-inflammatory Ibuprofen as your primary pain control medications - You have been prescribed a stronger pain medication Oxycodone for breakthrough pain, take as needed as prescribed. - You should continue your stomach acid reduction agent Pantoprozole to help reduce stomach acid and reflux. - You will be taking Aspirin 81mg twice a day for DVT prevention unless instructed otherwise. - If you have constipation you should take Colace or Miralax (both [id number]). It takes most people 3-4 days to have a bowel movement. Follow-up: 2 weeks Referrals: Júnior Mace MD [ [facility] STAFF PHYSICIAN] - [facility] [Provider Group] (s/p L TKA 04/19/19.) Activity:: Activity as Tolerated Equipment/Supplies:: Walker Diet:: As Tolerated Discharge Orders Discharge Orders: Discharge Order (Routine); Ordered 04/20/19 Ordered By: Júnior Mace DS: Summary Status at Discharge Functional status at discharge: uses cane/walker Overall status at discharge: patient is back to baseline Mental Status: mental status grossly normal Speech and Movement: speech and movement normal Mood: congruent mood Affect: normal affect Exam Psych Mental Status: mental status grossly normal Speech and Movement: speech and movement normal Mood: congruent mood Affect: normal affect DS: Data Vitals/I&O Vitals and I&O: Vital Signs Temperature 36.9 C 04/20/19 04:25 Temperature Source Tympanic 04/20/19 04:25 Pulse 52 L 04/20/19 04:25 Pulse Rhythm Regular 04/20/19 03:43 Respiratory Rate 19 04/20/19 04:25 Respiratory Effort Non-Labored 04/20/19 03:43 Respiratory Depth Normal 04/20/19 03:43 Respiratory Pattern Normal 04/20/19 03:43 Blood Pressure 127/75 04/20/19 04:25 Pulse Oximetry 96 04/20/19 04:25 Respiratory End-tidal CO2 32 04/19/19 13:19 Oxygen Delivery Method Room Air 04/19/19 23:52 Oxygen Flow Rate 0 04/19/19 23:52 Pain Level 0 04/19/19 23:52 Comment 04/19/19 20:55 Intake & Output 04/19/19 04/19/19 04/20/19 11:59 23:59 11:59 Intake Total 1160 / 2587.333 1427.333 / 2587.333 50 / 50 Output Total 925 / 925 1450 / 1450 Balance 1160 / 1662.333 502.333 / 1662.333 -1400 / -1400 Weight 121.7 kg Intake: IV 1160 / 2027.333 867.333 / 2027.333 50 / 50 Oral 560 / 560 Output: Urine 725 / 725 1450 / 1450 Estimated Blood Loss 200 / 200 Other: Urine Color Yellow Brown Yellow Urine Appearance Clear Clear Clear Emesis Description None PFSH Medical History Acute coronary syndrome (Chronic) Bundle branch block (Chronic) right Cataract (Resolved) Diabetes mellitus (Chronic 10/19/12) Diverticulosis of colon without diverticulitis (Chronic) Gout (Chronic) Hypertension (Chronic) NSTEMI (non-ST elevated myocardial infarction) (Chronic 06/28/13) june 2013. RCA stent Obesity (Chronic) BMI of 37.1 Peripheral polyneuropathy (Chronic 11/20/15) 11/24 bilat. plantar forefeet Psoriasis (Chronic) Psoriatic arthritis (Chronic) Tinnitus, bilateral (Chronic 10/09/16) Surgical History Colon polyps (Acute) Reports history of polyp removal Colonoscopy - MAC (07/12/16) Status post bilateral cataract extraction (Acute) Family History Mother , age 65 Lung cancer Father , AGE 45 Hodgkins disease Brother Essential hypertension Son No problems noted. Son No problems noted. Daughter No problems noted. Maternal Grandfather No problems noted. Paternal Grandfather No problems noted. Maternal Grandmother No problems noted. Paternal Grandmother No problems noted. Social History Smoking/Tobacco Use Status: Former Tobacco Use Quit Date: 02/09/82 Tobacco: How many years used: 40 Second Hand Exposure: No Alcohol Intake: current Alcohol Intake frequency: holidays/special occasions only Alcohol type: beer and wine Drug use: Never Substance use type: does not use Caregiver/Support person: No Communication Needs: Hard of Hearing Do you need help understanding health information?: Never Pets and animals: Yes Pets and animals: cat(s) Sexually active: No Do you think of yourself as: straight/heterosexual Current gender identity: male What is your relationship status?: How often do you talk on the phone with friends or family?: three or more times per week How often do you get together with friends or relatives?: three or more times per week How often do you attend confucianist or anglican services?: decline to answer Do you belong to any clubs or organized social groups?: yes Panel score (0-1 are the most socially isolated patients): 3 What type of physical activity do you participate in: other Details: Cardiac rehab Duration: 45-60 minutes/day Frequency: 3-4 times per week Meaghan/Gnosticism: Mandaen Special meaghan needs: No Seatbelt use: always Helmet use: No Drive intox or ride w/intox port cdl a driver: No Do you feel safe in your relationship?: Yes
[2019-04-20 08:05] VITALS: BP 125/60; PULSE 63; RESP 23; TEMP 36.6; O2SAT 97
[2019-04-20] MEDS: Allopurinol 100 MG TAB PO (08:59)
[2019-04-20] MEDS: Acetaminophen 500 MG TAB 1000 MG PO (08:59)
[2019-04-20] MEDS: Aspirin E.C. 81 MG TABEC PO (08:59)
[2019-04-20] MEDS: hydroCHLOROthiazide 12.5 MG TAB PO (08:59)
[2019-04-20] MEDS: Metoprolol 25 MG TAB PO (08:59)
[2019-04-20] MEDS: amLODIPine 5 MG TAB PO (09:00)
[2019-04-20] MEDS: oxyCODONE 5 MG TAB PO (09:00)
[2019-04-20] MEDS: Pantoprazole 40 MG TABCR PO (09:00)
[2019-04-20] MEDS: Celecoxib 200 MG CAP PO (09:10)
--- NOTE | 2019-04-20 10:24 | PT.INTREAT ---
Date of service: 04/20/19 Time of Service: 10:24 PT Notes Visit Reasons: LEFT KNEE DJD 04/20/2019 SUBJECTIVE: Pt stating he feels pretty good. He notes some pressure around the knee but it is manageable. States he has not had any pain medication this morning. He requests Tylenol after our PT session today. OBJECTIVE: Seated in his chair performing his exercises. Agreeable to PT treatment. TRANSFERS Sit to stand: S Stand to sit: S GAIT Device: FWW Weight bearing: AT L Assist: S Distance: 260' STAIRS: 6-4 steps, 4-6 steps, 1 rail, 1 SPC, SBA, step to pattern. THEREX: Review HEP. Pt able to tolerate active SLR without difficulty. Review pillow positioning when lying down. ASSESSMENT: Pt manages well with stairs. No LOB during straight plane ambulation with the FWW. Managing his pain well. PLAN: Pt to be discharged home. See discharge summary for details. Treatment time: 25' [id number], [id number] Ericka Rendon, [place]
--- NOTE | 2019-04-21 09:13 | INDS_ITS ---
Date of service: 04/21/19 PT Notes Visit Reasons: LEFT KNEE DJD Inpatient Physical Therapy Discharge Summary Dates: 04/21/2019 Dates of Service: 04/19/2019 and 04/20/2019 This is a clinical summary of care provided on the duration of dates listed above. No charge was made in the completion of this documentation. Referring Doctor: Júnior Mace MD PT Orders: PT CONSULT: Status post Ortho surgery Precautions: Fall. Standard. WBAT on left LE. Patient Profile/Admitting Diagnosis: Patient is a 78-year-old male who is status post left knee total arthroplasty on POD 1 on day of discharge due to degenerative joint disease of the left knee. PMHX: Medical History (Updated 04/12/19 @ 15:20 by Torrie Hernandez) Acute coronary syndrome (Chronic) Bundle branch block (Chronic) right Cataract (Resolved) Diabetes mellitus (Chronic 10/19/12) Diverticulosis of colon without diverticulitis (Chronic) Gout (Chronic) Hypertension (Chronic) NSTEMI (non-ST elevated myocardial infarction) (Chronic 06/28/13) june 2013. RCA stent Obesity (Chronic) BMI of 37.1 Peripheral polyneuropathy (Chronic 11/20/15) 11/24 bilat. plantar forefeet Psoriasis (Chronic) Psoriatic arthritis (Chronic) Tinnitus, bilateral (Chronic 10/09/16) Surgical History (Updated 04/12/19 @ 15:20 by Torrie Hernandez) Colon polyps (Acute) Reports history of polyp removal Colonoscopy - MAC (07/12/16) Status post bilateral cataract extraction (Acute) Social History/Home Situation: Patient lives with Benita in a split-level house with 7 steps that lead to a landing and another 7 steps that lead to the entrance of the house with a rail on the right side going up. Patient is independent with all aspects of ADLs prior to admission. 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 Equipment Owned/DME: Front wheeled walker, SPC Subjective: NT. See most recent DIRECTOR [employer]LYT[employer] notes. Objective: General Observation: NT. See most recent [employer] notes. Mental Status: NT. See most recent [employer] notes. Pain: NT. See most recent [employer] notes. ROM: Right Upper Extremity: Shoulder Flexion WFL. Shoulder abduction WFL. Elbow flexion WFL. Wrist flexion WFL. Opening and closing of hand WFL. Left Upper Extremity: Shoulder Flexion WFL. Shoulder abduction WFL. Elbow flexion WFL. Wrist flexion WFL. Opening and closing of hand WFL. Right Lower Extremity: Hip flexion WFL. Hip abduction WFL. Knee flexion WFL. Ankle dorsiflexion WFL. Ankle plantarflexion WFL. Left Lower Extremity: Hip flexion WFL. Hip abduction WFL. Knee flexion -18 to 115 degrees. Knee extension -18 degrees. Ankle dorsiflexion WFL. Ankle plantarflexion WFL. Strength: Right Upper Extremity: Shoulder flexors 5/5. Shoulder abductors 5/5. Elbow flexors 5/5. Elbow extensors 5/5. After School Program Director strong. Left Upper Extremity: Shoulder flexors 5/5. Shoulder abductors 5/5. Elbow flexors 5/5. Elbow extensors 5/5. After School Program Director strong. Right Lower Extremity: Hip flexors 5/5. Hip abductors 5/5. Knee flexors 5/5. Knee extensors 5/5. Ankle dorsiflexors 5/5. Ankle plantarflexors 5/5. Left Lower Extremity:Hip flexors 5/5. Hip abductors 5/5. Knee flexors 3- /5. Knee extensors 3-/5. Ankle dorsiflexors 5/5. Ankle plantarflexors 5/5. Sensation: Intact as to pain and pressure on bilateral lower extremities. Bed Mobility/Transfers: Rolling supervision Supine to sit supervision Sit to supine supervision Sit to stand supervision Stand to sit supervision Bed to chair supervision Chair to bed supervision Gait: 260 feet with supervision using front wheeled walker with WBAT on the left with step through gait pattern. Up-and-down six 4 inch steps and four 6 inch steps while holding onto one rail with only SBA. Balance: Static Sitting: Normal Dynamic Sitting: Normal Static Standing: Fair Dynamic Standing: Fair Assessment: Difficulty in walking, impaired mobility ADL performance, balance impairment, and weakness of left hip and knee muscle groups resulting from current diagnosis. Patient is a 78-year-old highly motivated male who is status post left knee total arthroplasty on POD 1 on the day of discharge due to degenerative joint disease of the left knee. Patient presented with clinical signs and symptoms consistent with current/admitting diagnoses that have resulted to mobility limitations, gait instability, generalized weakness, and impairment of motor control as demonstrated by the following impairment level findings: 1. Decreased strength to L LE major muscle groups 2. Impaired standing balance 3. Impaired activity tolerance 4. Limitation of joint range of motion in left knee Impairments contributed to the following functional limitations: 1. Dependent bed mobility skills 2. Increased dependence with transfers 3. Inability to safely ambulate without assistive device and physical assistance 4. Increase completion time for mobility ADL performance 5. Increased fall risk 6. Inability to negotiate steps alone safely Goals: Goals X1 week 1. Supine-Sit independent NOT MET 2. Sit-Supine independent NOT MET 3. Sit-Stand independent NOT MET 4. Stand-Sit independent NOT MET 5. Bed-Chair independent NOT MET 6. Chair-Bed independent NOT MET 7. Independent gait on level surface with use of least restrictive device for at least 300 feet without report of pain nor dyspnea NOT MET 8. Independent stair negotiation while holding onto bilateral rails for at least 15 steps without report of pain nor dyspnea NOT MET 9. Independent with home exercise program NOT MET 10. Good static and dynamic standing balance/tolerance NOT MET DISCHARGE RECOMMENDATIONS: May benefit from skilled physical therapy services according to orthopedic surgeon's timeline recommendations. Patient will be educated and trained on home exercise program per TKA exercise protocol in preparation for outpatient physical therapy services. TREATMENT CODE/TIME: [place] Thank you very much for this referral. Haleigh Munoz PT, DPT, CLT [facility] [place], [place]
== END 2019-04-20 11:56 | disposition home or self-care (01) | DRG 470 ==
LOC: PDS 07:50 → MS 13:28
PROVIDERS: Admitting Provider Student in an Organized Health Care Education/Training Program; PCP Emergency Medicine; Visit Provider Student in an Organized Health Care Education/Training Program
PROC: 0SRD0J9 Replacement of Left Knee Joint with Synthetic Substitute, Cemented, Open Approach (ICD-10-PCS; CPT 27447; principal; 2019-04-19 11:15)
DX: M17.12 Unilateral primary osteoarthritis, left knee (principal); M25.562 Pain in left knee; Z96.652 Presence of left artificial knee joint; G89.18 Other acute postprocedural pain; Z79.02 Long term (current) use of antithrombotics/antiplatelets; Z79.82 Long term (current) use of aspirin; Z79.899 Other long term (current) drug therapy; I25.2 Old myocardial infarction; Z95.5 Presence of coronary angioplasty implant and graft; I10 Essential (primary) hypertension; E11.42 Type 2 diabetes mellitus with diabetic polyneuropathy
CPT/HCPCS: 27447; 27130; 76942; 97110; 97162; 97530; NC; J0690; J1885; J2001; J2250; J2405; J3010

== ENCOUNTER 2019-05-06 11:03 | Outpatient (CLI) | payer MEDICARE, SELFPAY ==
--- NOTE | 2019-05-06 10:15 | DI.RAD_ITS ---
EXAM: XR STANDING ALIGNMENT AND XRAY KNEE LT 1 V CLINICAL HISTORY: 1ST POST OP. TECHNIQUE: 2D digital imaging was performed. COMPARISON: XR STANDING ALIGNMENT from 04/12/2019 FINDINGS: Since the prior examination, there has been interval placement of a left total knee replacement. The orthopedic hardware appears in good position. There is no evidence of failure. In the right knee, there are mild degenerative changes characterized by mild narrowing of the medial femoral tibial join t space and periarticular spurring. Vascular calcifications are seen in the soft tissues. The right lower extremity measures 100.1 cm. The left lower extremity measures 101 cm. IMPRESSION: Status post left total knee replacement. DATA REPOSITORY: RADIATION DOSE DELIVERED:
== END 2019-05-06 11:23 ==
PROVIDERS: PCP Emergency Medicine; Visit Provider Student in an Organized Health Care Education/Training Program
DX: Z96.652 Presence of left artificial knee joint (principal); M17.11 Unilateral primary osteoarthritis, right knee; Z47.1 Aftercare following joint replacement surgery; E11.9 Type 2 diabetes mellitus without complications; I10 Essential (primary) hypertension
CPT/HCPCS: 73560; 77073

== ENCOUNTER → 2019-06-03 09:34 | Outpatient (BNVA) | payer MEDICARE, SELFPAY | PROVIDERS: PCP Emergency Medicine; Referring Provider Emergency Medicine; Visit Provider Student in an Organized Health Care Education/Training Program | DX: Z47.1 Aftercare following joint replacement surgery; Z96.652 Presence of left artificial knee joint; M76.31 Iliotibial band syndrome, right leg; E11.9 Type 2 diabetes mellitus without complications; I10 Essential (primary) hypertension ==

== ENCOUNTER → 2019-06-23 11:43 | Outpatient (BNVA) | payer MEDICARE, SELFPAY | PROVIDERS: PCP Emergency Medicine; Referring Provider Emergency Medicine; Visit Provider Student in an Organized Health Care Education/Training Program | DX: M76.31 Iliotibial band syndrome, right leg (principal); I10 Essential (primary) hypertension; E11.9 Type 2 diabetes mellitus without complications | CPT/HCPCS: 99213 ==

== ENCOUNTER → 2019-09-29 08:42 | Outpatient (BNVA) | payer MEDICARE, SELFPAY | PROVIDERS: PCP Emergency Medicine; Referring Provider Emergency Medicine; Visit Provider Student in an Organized Health Care Education/Training Program | DX: M23.91 Unspecified internal derangement of right knee (principal); M76.31 Iliotibial band syndrome, right leg; I10 Essential (primary) hypertension; E11.9 Type 2 diabetes mellitus without complications | CPT/HCPCS: 99213 ==

== ENCOUNTER 2019-10-05 01:05 | Outpatient (CLI) | payer MEDICARE, SELFPAY ==
--- NOTE | 2019-10-05 14:40 | DI.MRI_ITS ---
EXAM: MR LOWER JOINT RT WO CLINICAL HISTORY: RT KNEE PAIN, INTERNAL DERANGEMENT,M23.91. TECHNIQUE: Multiplanar multisequence MRI was performed. COMPARISON: No exams were available for comparison FINDINGS: MR examination of the knee was performed according to the usual protocol Marrow signal appears fairly well maintained. There is mild marginal osteophyte formation involving all 3 joints of the knee. There is Bills's cyst measuring up to 7 x 2.5 cm in diameter sagittal images which contains a loose b aleta measuring roughly 2 cm in greatest diameter. Extensor mechanism and patellofemoral joint: Quadriceps and patellar tendons show normal signal and a ppear intact. Articular cartilage of the patellofemoral joint appears fairly well maintained. No si gnal abnormality of the patella. Medial and lateral retinacula appear intact. Suprapatellar and inf rapatellar fat pads appear normal. Medial tibiofemoral joint: There is fairly good preservation of the RT ticket are cartilage of the me dial tibiofemoral joint. There is complex presumably chronic tear and of the body and posterior horn of the medial meniscus. No significant medial collateral ligament injury seen. Lateral tibiofemoral joint: There is abnormal signal in the lateral meniscus particularly adjacent to the posterior tibial attachment. Suspect posterior horn tear. Additionally there is a linear area of abnormal signal extending through the mid body of the lateral meniscus which appears to surface in feriorly and probably represents nondisplaced tear component. No significant lateral collateral complex injury or posterolateral corner injury seen. Cruciate ligaments: There is mildly abnormal signal in anterior and posterior cruciate ligaments whic h is nonspecific and consistent with degeneration. No cruciate ligament tear seen. IMPRESSION: Medial and lateral meniscal tears as noted above. Slight degenerative changes noted involving all 3 joint compartments. Bills's cyst measuring 7 x 2.5 cm in diameter which appears to contain a loose body. DATA REPOSITORY:
== END 2019-10-05 01:25 ==
PROVIDERS: PCP Emergency Medicine; Visit Provider Student in an Organized Health Care Education/Training Program
DX: S83.241A Other tear of medial meniscus, current injury, right knee, initial encounter (principal); S83.281A Other tear of lateral meniscus, current injury, right knee, initial encounter
CPT/HCPCS: 73721

== ENCOUNTER 2019-10-14 02:39 | Outpatient (CLI) | payer MEDICARE, SELFPAY ==
[2019-10-16 17:54] LABS: COVID-19 RT-PCR Result NEGATIVE (Negative)
== END 2019-10-14 02:59 ==
PROVIDERS: PCP Emergency Medicine; Visit Provider Student in an Organized Health Care Education/Training Program
DX: M23.8X1 Other internal derangements of right knee (principal)
CPT/HCPCS: U0003

== ENCOUNTER 2019-10-18 09:02 | Day surgery (SDC) | payer MEDICARE, SELFPAY ==
--- NOTE | 2019-10-13 15:37 | NUR.NOTE ---
Pt.stated he had 2 teeth pulled 10/12, is not on any antibiotics, spoke with Cem ponce MD aware.Nursing Note:
[2019-10-18] VITALS (9 sets, daily range): BP systolic 119–155; BP diastolic 46–74; PULSE 44–52; RESP 14–20; TEMP 36.2–36.3; O2SAT 95–98
--- NOTE | 2019-10-18 09:51 | W.PREOPHP ---
Date of service: 10/18/19 Time of Service: 09:51 Assessment and Plan Assessment and plan (1) Tear of meniscus of right knee: Status: Acute Assessment and plan: Bayron is a 38-year-old who has persistent right knee pain which has failed conservative options. He has an MRI which confirmed a lateral meniscal tear with displaced fragment as well as loose bodies in the popliteal space. Due to the failure of conservative options, I recommended knee arthroscopy with meniscal intervention and possible removal of loose bodies. He has had a negative COVID-19 test. He has no medical preclusion surgery. We will proceed with surgery today for right-sided knee arthroscopy. Qualifiers: Tear current or old: current Encounter type: subsequent encounter Meniscus of knee: unspecified Meniscus tear of knee type: complex Qualified Code(s): S83.203D - Other tear of unspecified meniscus, current injury, right knee, subsequent encounter (2) Loose body of right knee: Status: Acute History of Present Illness History of Present Illness Chief Complaint: Right Knee Meniscal Tears Narrative: Bayron is a 78-year-old who I see in the office for persistent right knee pain. He has completed extensive physical therapy along with activity modification and use of anti-inflammatories. However, he continues to have pain about the right knee, which is mechanical and he flexes well. I come the office of the peripheral multiple treatments including MRI which confirmed tears of the medial and lateral menisci of the right knee along with loose bodies. Over the phone I discussed the MRI with him. He has had persistent pain despite our best conservative treatments. I had a long discussion about treatment options with Bayron over the phone he desires proceed with a knee arthroscopy with meniscal intervention am hopeful removal of loose bodies. He did have a COVID test which was negative. He denies chest pain or shortness of breath. He denies recent illness, fever, or chills. Review of Systems All systems reviewed & are unremarkable except as noted in HPI and below [facility] Medical History Acute coronary syndrome (Chronic) Bundle branch block (Chronic) right Cataract (Resolved) Diabetes mellitus (Chronic 10/19/12) Diverticulosis of colon without diverticulitis (Chronic) Gout (Chronic) Hypertension (Chronic) Iliotibial band syndrome of right side (Acute) NSTEMI (non-ST elevated myocardial infarction) (Chronic 06/28/13) june 2013. RCA stent. F/U with cardiology Obesity (Chronic) BMI of 37.1 Peripheral polyneuropathy (Chronic 11/20/15) 11/24 bilat. plantar forefeet Psoriasis (Chronic) Psoriatic arthritis (Chronic) Tinnitus, bilateral (Chronic 10/09/16) Surgical History Colon polyps (Acute) Reports history of polyp removal Colonoscopy - MAC (07/12/16) History of total left knee replacement (TKR) (Acute 04/19/19) Status post bilateral cataract extraction (Acute) Family History Mother , age 65 Lung cancer Father , AGE 45 Hodgkins disease Brother Essential hypertension Son No problems noted. Son No problems noted. Daughter No problems noted. Maternal Grandfather No problems noted. Paternal Grandfather No problems noted. Maternal Grandmother No problems noted. Paternal Grandmother No problems noted. Social History Smoking/Tobacco Use Status: Former Tobacco Use Quit Date: 02/09/82 Tobacco: How many years used: 40 Second Hand Exposure: No Alcohol Intake: current Alcohol Intake frequency: holidays/special occasions only Alcohol type: beer and wine Drug use: Never Substance use type: does not use Caregiver/Support person: No Communication Needs: Hard of Hearing Do you need help understanding health information?: Never Pets and animals: Yes Pets and animals: cat(s) Sexually active: No Do you think of yourself as: straight/heterosexual Current gender identity: male What is your relationship status?: How often do you talk on the phone with friends or family?: three or more times per week How often do you get together with friends or relatives?: three or more times per week How often do you attend christian or congregation services?: decline to answer Do you belong to any clubs or organized social groups?: yes Panel score (0-1 are the most socially isolated patients): 3 What type of physical activity do you participate in: other Details: Cardiac rehab Duration: 45-60 minutes/day Frequency: 3-4 times per week Meaghan/Anabaptism: Shinto Special meaghan needs: No Seatbelt use: always Helmet use: No Drive intox or ride w/intox haulpak driver: No Do you feel safe at home: Yes Do you feel safe in your relationship?: Yes Meds Home Medications and Allergies Home Medications Medication Instructions Recorded Confirmed Type nitroglycerin 0.4 mg SUBLINGUAL PRN 06/28/13 10/13/19 History pantoprazole 40 mg tablet,delayed 40 mg PO DAILY #90 tab-cap 11/23/18 10/18/19 Rx release rosuvastatin 20 mg tablet 20 mg PO HS #90 tab-cap 02/21/19 10/18/19 Rx allopurinol 100 mg tablet 100 mg PO DAILY #90 tab-cap 03/14/19 10/18/19 Rx acetaminophen 1,000 mg PO Q8H PRN #90 tab 04/20/19 10/18/19 Rx ibuprofen 400 mg PO Q6H PRN #60 tab 04/20/19 10/13/19 Rx amlodipine 5 mg tablet 5 mg PO QAM #90 tab 05/30/19 10/13/19 Rx mupirocin 2 % topical ointment 1 applic TP TID #22 gm 05/30/19 10/13/19 Rx metoprolol tartrate 25 mg tablet 25 mg PO BID #90 tab 09/21/19 10/18/19 Rx aspirin 81 mg PO DAILY 10/13/19 10/18/19 History hydrochlorothiazide 10/18/19 History Allergies Allergy/AdvReac Type Severity Reaction Status Date / Time No Known Allergies Allergy Verified 10/18/19 09:15 Exam Narrative Exam Narrative: He was examined sitting up comfortably in the chair. No acute distress. Alert and orient x3. Clear to auscultation bilaterally. Heart rate and rhythm are regular Results Last Vital Signs Temp 36.2 C L 10/18/19 09:18 Pulse 47 L 10/18/19 09:18 Resp 16 10/18/19 09:18 BP 137/74 10/18/19 09:18 Pulse Ox 95 10/18/19 09:18
[2019-10-18] MEDS: Lactated Ringers 1,000 ML 80 ML IV (09:52)
--- NOTE | 2019-10-18 09:57 | PDOC.DSDIS_ITS ---
Discharge Plan Disposition Patient Disposition: HOME Condition: Good Discharge Details Reason For Visit: Right Knee Meniscal Tears Attending Provider: Júnior Mace Primary Care Provider: Raj George Home Meds and New Rx's Prescriptions: New hydrocodone-acetaminophen 5-325 mg tablet 1 tab PO Q6H PRN PRN (Reason: pain) Qty: 8 RF: 0 Continued nitroglycerin 0.4 MG tablet, sublingual 0.4 mg Sublingual PRN RF: 0 pantoprazole 40 mg tablet,delayed release (DR/EC) 40 mg PO DAILY Qty: 90 RF: 3 rosuvastatin 20 mg tablet 20 mg PO HS Qty: 90 RF: 3 allopurinol 100 mg tablet 100 mg PO DAILY Qty: 90 RF: 4 amlodipine [Norvasc] 5 mg tablet 5 mg PO QAM Qty: 90 RF: 4 mupirocin 2 % ointment 1 applic TP TID Qty: 22 RF: 0 metoprolol tartrate 25 mg tablet 25 mg PO BID Qty: 90 RF: 6 aspirin 81 mg Tablet,Chewable 81 mg PO DAILY RF: 0 hydrochlorothiazide 12.5 mg tablet RF: 0 ibuprofen 400 mg tablet 400 mg PO Q6H PRN (Reason: pain) Qty: 60 RF: 3 Changed acetaminophen 500 mg tablet 500 mg PO Q6H PRN PRN (Reason: pain) Qty: 60 RF: 3 Discharge Instructions Additional Instructions: May use walker instead of crutches for comfort. Stand Alone Forms: [facility] Knee Arthroscopy Referrals: Júnior Mace MD [ [facility] STAFF PHYSICIAN] - Equipment/Supplies: Partial Weight Bearing Crutches Activity:: Activity as Tolerated Remove Dressings/Wound Care:: 72 hours Shower/Bathe:: 72 hours Diet:: As Tolerated Discharge Orders Discharge Orders: Discharge Order (Routine); Ordered 10/18/19 Ordered By: Júnior Mace DS: Diagnosis Discharge Diagnosis (1) Tear of meniscus of right knee: Status: Acute (2) Loose body of right knee: Status: Acute
[2019-10-18] MEDS: ceFAZolin 2 GM/50 ML BAG IVPB (10:22)
[2019-10-18] MEDS: Bupivacaine 0.5% Pres-Free 30 ML VIAL (11:12)
--- NOTE | 2019-10-18 11:31 | ROE_ITS ---
Date of service: 10/18/19 Time of Service: 11:31 Operative Note Operative Note DATE OF PROCEDURE: 10/18/19 PRE-OP DIAGNOSIS: Right Knee Medial and Lateral Meniscus Tears POST-OP DIAGNOSIS: same PROCEDURE: Right Knee Arthroscopic Partial Lateral and Medial Menisectomies SURGEON: Júnior Mace ANESTHESIA: GETA ESTIMATED BLOOD LOSS: 0 PATHOLOGY: none sent COMPLICATIONS: None Patient was transported to: PACU Patient's condition: stable Indications: I have seen virginia in clinic for symptoms of a meniscus tear. This was confirmed based on MRI and exam findings. Nonoperative measures were exhausted but disability and pain persisted. I discussed knee arthroscopy with meniscal intervention with the patient. I reviewed the risks of the procedure to include, but not limited to, bleeding, infection, pain, stiffness, damage to nerves or vessels, recurrence, blood clot. Despite these risks, the patient elected to proceed. Findings: A diagnostic arthroscopy was performed with the following findings: Suprapatellar Pouch: No significant inflammation, no loose bodies Medial Compartment: Complex medial meniscal tear, intact meniscal root, areas of grade II chondromalacia, no loose bodies Notch: ACL and PCL were intact Lateral Compartment: Complex meniscal tear at the level of the root with a large loose fragment as well as tearing at the anterior body near the anterior root, intact meniscal root fibers, areas of grade II chondromalacia mostly of the tibia, no loose bodies Patellofemoral Compartment: Significant chondromalacia, grade 3 and 4 of the trochlea, no apparent patellar maltracking Procedure Description: Virginia was greeted in the preoperative holding area where the correct side was identified and marked. The consent was reviewed with the patient and signed. The history and physical was updated. All questions were answered. He was taken back to the operating room. The patient was placed into the supine position on the operating room table. A nonsterile tourniquet was placed high onto the leg but not used. All bony prominences were well padded. Prophylactic antibiotics in the form of cefazolin were administered. The right leg was then prepped with Chloraprep and draped in a standard fashion with stockinette and extremity drape. A timeout to confirm correct identity, side and site, procedure, allergies, anesthesia, and medical concerns was performed. The leg was placed into a pneumatic leg hector, [id number]. A standard lateral po rtal was made at the lateral border of the patella tendon in line with the inferior pole of the patella, soft spot. The skin and deep tissue was incised sharply and the blunt trochar was inserted atraumatically. A diagnostic arthroscopy was performed and the findings are listed above. The suprapatellar pouch had no significant inflammatory change. The patellofemoral articulation showed significant chondral damage mostly of the trochlea as well as good tracking. The lateral gutter had no loose bodies and the medial gutter had no loose bodies. The knee was brought into some valgus stress in extension to open the medial compartment. A medial portal was made, localized by a spinal needle. The portal was created with an #11 blade through skin and capsule under direct visualization avoiding any meniscal injury. A probe was then inserted into the medial compartment. The medial compartment was fully inspected. The chondral surface of the tibia showed grade I/II chondromalacia and the surface of the femur showed grade I chondromalacia. The medial meniscus had a complex tear of the posterior horn. After evaluation, the meniscus was debrided down to a stable base using a series of biters and arthroscopic carlos. It was probed afterwards to confirm that the tear had been removed and the meniscus was stable. The notch was then inspected which showed an intact ACL and an intact PCL. The leg was then brought into a figure of 4 position. The lateral compartment was fully inspected with the arthroscope and a probe. The chondral surface of the lateral femur showed no significant chondromalacia. The chondral surface of the lateral tibia showed grade I chondromalacia. The lateral meniscus had a complex tear involving both posterior and anterior elements. The posterior meniscal tear had a large loose piece, a parrot type tear, right lateral to the root attachment. Additionally, there is a tear of the anterior portion of the meniscus with both a horizontal and vertical component extending into the anterior root. After evaluation, the meniscus was debrided down to a stable base using a series of biters and arthroscopic carlos. It was probed afterwards to confirm that the tear had been removed and the meniscus was stable. There were peripheral fibers remaining attaching the meniscus to the anterior and posterior roots. Pressure was applied posteriorly both medially and laterally, to hopefully decompress the known popliteal cyst. However, no loose bodies and no significant extravasation of joint fluid was encountered. The arthroscope was brought back into the suprapatellar pouch and the leg was in full extension. The knee was thoroughly irrigated with the arthroscopic fluid on high flow and pressure. Inflow was stopped and excess fluid was removed. The wounds were closed with 4-0 Nylon. They were dressed with Xeroform, 4x4 gauze, ABD pad, Kerlix and an SP wrap. A cryo-cuff was applied. The patient tolerated the procedure well and was returned to the Same Day Surgery area in a stable condition suffering no known complication.
== END 2019-10-18 13:30 | disposition home or self-care (01) ==
PROVIDERS: PCP Emergency Medicine; Visit Provider Student in an Organized Health Care Education/Training Program
PROC: (CPT 29870; principal; 2019-10-18 14:30)
DX: S83.231A Complex tear of medial meniscus, current injury, right knee, initial encounter (principal); S83.271A Complex tear of lateral meniscus, current injury, right knee, initial encounter; X58.XXXA Exposure to other specified factors, initial encounter; M94.261 Chondromalacia, right knee; I10 Essential (primary) hypertension; E11.9 Type 2 diabetes mellitus without complications; I25.2 Old myocardial infarction
CPT/HCPCS: 29880; NC; J0131; J0690; J1100; J1885; J2001; J2405; J2704

== ENCOUNTER 2019-10-26 22:23 | Outpatient (REF) | payer MEDICARE, SELFPAY ==
[2019-10-26 22:17] LABS: Anion Gap 4.3 mmol/L (3-11); BUN 12 mg/dL (7-18); CO2 29.7 mmol/L (21.0-32.0); CREATININE 1.11 mg/dL (0.70-1.30); Calcium 9.1 mg/dL (8.5-10.1); Calculated LDL 38 mg/dL (<100); Chloride 105 mmol/L (98-107); Cholesterol 100 mg/dL (<200); Glucose 96 mg/dL (74-106); HDL Cholesterol 43 mg/dL (40-60); Potassium 4.2 mmol/L (3.5-5.1); Sodium 139 mmol/L (136-145); Triglyceride 99 mg/dL (<150)
[2019-10-26 22:26] LABS: Hemoglobin A1C 5.7 % (<5.7)
== END 2019-10-26 22:43 ==
LOC: NCHCN 22:23
PROVIDERS: PCP Emergency Medicine; Visit Provider Emergency Medicine
DX: E11.9 Type 2 diabetes mellitus without complications (principal); I10 Essential (primary) hypertension; E66.9 Obesity, unspecified
CPT/HCPCS: 80048; 80061; 83036

== ENCOUNTER → 2019-10-31 09:05 | Outpatient (BNVA) | payer MEDICARE, SELFPAY | PROVIDERS: PCP Emergency Medicine; Referring Provider Emergency Medicine; Visit Provider Student in an Organized Health Care Education/Training Program | DX: S83.203D Other tear of unspecified meniscus, current injury, right knee, subsequent encounter (principal); X58.XXXD Exposure to other specified factors, subsequent encounter ==

== ENCOUNTER → 2020-03-06 15:25 | Outpatient (BNVA) | payer MEDICARE, SELFPAY | PROVIDERS: PCP Emergency Medicine; Referring Provider Emergency Medicine; Visit Provider Internal Medicine Cardiovascular Disease | DX: I21.4 Non-ST elevation (NSTEMI) myocardial infarction (principal); I45.4 Nonspecific intraventricular block; Z95.5 Presence of coronary angioplasty implant and graft; I10 Essential (primary) hypertension | CPT/HCPCS: 99214; 99443 ==

== ENCOUNTER 2020-04-27 09:34 | Outpatient (CLI) | payer MEDICARE, SELFPAY ==
--- NOTE | 2020-04-27 09:02 | DI.RAD_ITS ---
EXAM: XR KNEE LT 2V AP,LAT INDICATION: annual f/u. COMPARISON: CR XR STANDING ALIGNMENT from 05/06/2019 CR XR KNEE LT 1V from 05/06/2019 MR MR LOWER JOINT RT WO from 10/05/2019 TECHNIQUE: 2D digital imaging was performed. FINDINGS: There has been no change in the alignment of the total knee prosthesis or appearance of the surroundi ng bone. DATA REPOSITORY: RADIATION DOSE DELIVERED:
== END 2020-04-27 09:35 | disposition home or self-care (01) ==
LOC: DIORS 09:35
PROVIDERS: PCP Emergency Medicine; Visit Provider Student in an Organized Health Care Education/Training Program
DX: Z96.652 Presence of left artificial knee joint (principal); Z47.1 Aftercare following joint replacement surgery
CPT/HCPCS: 99213; 73560

== ENCOUNTER 2020-08-07 11:00 | Outpatient (RCR) | payer SELFPAY ==
[2020-07-10 11:14] VITALS: BP 133/66; PULSE 49
[2020-07-12 11:00] VITALS: BP 136/66; PULSE 47
[2020-07-17 11:09] VITALS: BP 145/70; PULSE 52
[2020-07-19 10:52] VITALS: BP 142/83; PULSE 47
[2020-07-24 11:00] VITALS: BP 139/72; PULSE 48
[2020-07-26 10:58] VITALS: BP 131/68; PULSE 54
[2020-07-31 11:00] VITALS: BP 145/78; PULSE 51
[2020-08-02 10:57] VITALS: BP 146/83; PULSE 52
[2020-08-07 11:00] VITALS: BP 155/80; PULSE 52
== END 2020-08-08 23:59 | disposition home or self-care (01) ==
LOC: CR 11:00
PROVIDERS: PCP Emergency Medicine; Visit Provider Family Medicine
DX: Z51.89 Encounter for other specified aftercare (principal)

== ENCOUNTER 2020-09-06 11:00 | Outpatient (RCR) | payer SELFPAY ==
[2020-08-09 00:26] VITALS: BP 155/80; PULSE 52
[2020-08-09 11:02] VITALS: BP 117/67; PULSE 52
[2020-08-14 10:56] VITALS: BP 141/69; PULSE 57; O2SAT 94
[2020-08-21 10:48] VITALS: BP 160/81; PULSE 53
[2020-08-23 11:08] VITALS: BP 148/76; PULSE 52
[2020-08-28 10:52] VITALS: BP 127/76; PULSE 58
[2020-08-30 11:00] VITALS: BP 143/70; PULSE 60
[2020-09-04 11:11] VITALS: BP 132/74; PULSE 58
[2020-09-06 11:07] VITALS: BP 134/64; PULSE 44
== END 2020-09-08 23:59 | disposition home or self-care (01) ==
LOC: CR 11:00
PROVIDERS: PCP Emergency Medicine; Visit Provider Family Medicine
DX: Z51.89 Encounter for other specified aftercare (principal)

== ENCOUNTER 2020-10-09 11:00 | Outpatient (RCR) | payer SELFPAY ==
[2020-09-09 00:25] VITALS: BP 134/64; PULSE 44
[2020-09-11 10:56] VITALS: BP 146/81; PULSE 52
[2020-09-13 12:55] VITALS: BP 163/71; PULSE 55
[2020-09-18 11:08] VITALS: BP 147/69; PULSE 56
[2020-09-20 11:05] VITALS: BP 147/72; PULSE 55
[2020-09-25 11:03] VITALS: BP 141/77; PULSE 53
[2020-09-27 10:54] VITALS: BP 150/74; PULSE 45
[2020-10-09 13:57] VITALS: BP 162/84; PULSE 48
== END 2020-10-09 23:59 | disposition home or self-care (01) ==
LOC: CR 11:00
PROVIDERS: PCP Emergency Medicine; Visit Provider Family Medicine
DX: Z51.89 Encounter for other specified aftercare (principal)

== ENCOUNTER 2020-10-23 09:10 | Outpatient (CLI) | payer MEDICARE, SELFPAY ==
--- NOTE | 2020-10-23 09:00 | RT.EKG_ITS ---
APPROVED REPORT Exam: Resting ECG Reason for Exam: irreg. heartbeat Patient Location: O HR:52 bpm ECG Measurements Heart Rate 52 AXIS NJ 179 P 9 QRSd 158 QRS -60 QT 480 T 16 QTc 449 Conclusion Sinus bradycardia...rate< 60 Multiform ventricular premature complexes...short R-R, variable morphology RBBB and LAFB...QRSd >120mS, axis(-40,240)
== END 2020-10-23 09:11 | disposition home or self-care (01) ==
LOC: DI.CM 09:13
PROVIDERS: PCP Emergency Medicine; Visit Provider Emergency Medicine
DX: I21.4 Non-ST elevation (NSTEMI) myocardial infarction (principal)
CPT/HCPCS: 93010

== ENCOUNTER 2020-11-06 03:45 | Outpatient (CLI) | payer MEDICARE, SELFPAY ==
[2020-11-06 13:08] LABS: HCT 41.9 % (40.0-50.0); HGB 13.8 g/dL (13.5-17.5); MCH 29.3 pg (27.0-33.0); MCHC 32.9 % (32.0-36.0); MPV 11.1 fL (8.0-11.0); Platelet Count 216 10^3/uL (130-400); RBC 4.71 10^6/uL (4.36-5.78); RDW 12.9 % (11.8-14.1); RDW-SD 41.7 fL; WBC 5.61 10^3/uL (4.4-10.8)
[2020-11-06 13:16] LABS: Anion Gap 8.9 mmol/L (3-11); BUN 12 mg/dL (7-18); CO2 27.1 mmol/L (21.0-32.0); CREATININE 1.1 mg/dL (0.70-1.30); Calcium 9.3 mg/dL (8.5-10.1); Chloride 105 mmol/L (98-107); Glucose 137 mg/dL (74-106); Sodium 141 mmol/L (136-145)
== END 2020-11-06 03:46 | disposition home or self-care (01) ==
LOC: LOS 03:46
PROVIDERS: PCP Emergency Medicine; Visit Provider Emergency Medicine
DX: I10 Essential (primary) hypertension (principal); E11.9 Type 2 diabetes mellitus without complications; R53.83 Other fatigue
CPT/HCPCS: 36415; 80048; 85027; 83036

== ENCOUNTER 2020-11-08 11:00 | Outpatient (RCR) | payer SELFPAY ==
[2020-10-10 00:23] VITALS: BP 162/84; PULSE 48
[2020-10-11 11:34] VITALS: BP 130/73; PULSE 53
[2020-10-16 13:13] VITALS: BP 155/67; PULSE 54
[2020-10-18 11:12] VITALS: BP 142/63; PULSE 44
[2020-10-23 11:19] VITALS: BP 165/62; PULSE 58
[2020-10-25 11:17] VITALS: BP 149/67; PULSE 56
[2020-10-30 11:00] VITALS: BP 140/67; PULSE 47
[2020-11-01 11:03] VITALS: BP 142/68; PULSE 57
[2020-11-06 09:07] VITALS: BP 151/79; PULSE 58
[2020-11-08 11:09] VITALS: BP 138/66; PULSE 50
[2020-11-13 11:02] VITALS: BP 147/75; PULSE 40
== END 2020-11-08 23:59 | disposition home or self-care (01) ==
LOC: CR 11:00
PROVIDERS: PCP Emergency Medicine; Visit Provider Family Medicine
DX: Z51.89 Encounter for other specified aftercare (principal)

== ENCOUNTER 2020-12-06 11:00 | Outpatient (RCR) | payer SELFPAY ==
[2020-11-09 00:26] VITALS: BP 138/66; PULSE 50
[2020-11-15 11:05] VITALS: BP 146/91; PULSE 63
[2020-11-20 11:28] VITALS: BP 128/69; PULSE 47
[2020-11-22 12:50] VITALS: BP 140/76; PULSE 54
[2020-11-29 10:58] VITALS: BP 135/66; PULSE 48
[2020-12-04 11:04] VITALS: BP 160/77; PULSE 52
[2020-12-06 11:13] VITALS: BP 141/64; PULSE 53
== END 2020-12-09 23:59 | disposition home or self-care (01) ==
LOC: CR 11:00
PROVIDERS: PCP Emergency Medicine; Visit Provider Family Medicine
DX: Z51.89 Encounter for other specified aftercare (principal); R69 Illness, unspecified

== ENCOUNTER 2021-01-01 11:00 | Outpatient (RCR) | payer SELFPAY ==
[2020-12-10 00:13] VITALS: BP 141/64; PULSE 53
[2020-12-11 11:43] VITALS: BP 136/65; PULSE 48
[2020-12-13 10:56] VITALS: BP 141/72; PULSE 47
[2020-12-18 13:08] VITALS: BP 153/79; PULSE 49
[2020-12-20 11:11] VITALS: BP 152/75; PULSE 58
[2020-12-27 10:53] VITALS: BP 150/81; PULSE 48
[2021-01-01 13:05] VITALS: BP 135/67; PULSE 50
== END 2021-01-08 23:59 | disposition home or self-care (01) ==
LOC: CR 11:00
PROVIDERS: PCP Emergency Medicine; Visit Provider Family Medicine
DX: Z51.89 Encounter for other specified aftercare (principal); R69 Illness, unspecified

== ENCOUNTER 2021-01-24 11:00 | Outpatient (RCR) | payer SELFPAY ==
[2021-01-09 00:18] VITALS: BP 135/67; PULSE 50
[2021-01-10 11:15] VITALS: BP 121/59; PULSE 56
[2021-01-17 10:59] VITALS: BP 154/64; PULSE 54
[2021-01-24 11:50] VITALS: BP 152/75; PULSE 52
== END 2021-02-08 23:59 | disposition home or self-care (01) ==
LOC: CR 11:00
PROVIDERS: PCP Emergency Medicine; Visit Provider Family Medicine
DX: Z51.89 Encounter for other specified aftercare (principal); R69 Illness, unspecified

== ENCOUNTER → 2021-03-12 09:47 | Outpatient (BNVA) | payer MEDICARE, SELFPAY | PROVIDERS: PCP Family Medicine; Referring Provider Emergency Medicine; Visit Provider Internal Medicine Cardiovascular Disease | DX: I21.4 Non-ST elevation (NSTEMI) myocardial infarction (principal); I10 Essential (primary) hypertension | CPT/HCPCS: 99214; 99213 ==

== ENCOUNTER 2021-03-26 12:30 | Outpatient (CLI) | payer MEDICARE, SELFPAY ==
--- NOTE | 2021-03-26 | DI.RAD_ITS ---
Exam(s) XR ARTHRITIS SERIES EXAM: XR ARTHRITIS SERIES CLINICAL HISTORY: ARTHRITIS L40.50 OSTEOARTHRITIS M89.49 CARPAL TUNNEL BILAT G56.03. TECHNIQUE: 2D digital imaging was performed. COMPARISON: No exams were available for comparison FINDINGS: PA and Norgaard views both hands reveal no evidence of fracture nor subluxations. No abnormal soft t issue calcifications with the exception of 2 tiny densities in the soft tissues just medial to the of middle phalanx of 5th finger left hand. There are mild degenerative changes in the metacarpophalangeal joints but without erosions evident. Also mild degenerative changes at the distal interphalangeal joints. This is approximately equal reena aterally. At the level of the wrist there is some degenerative change at the 1st carpometacarpal joint-mild and symmetrical bilaterally. IMPRESSION: Mild degenerative changes. No erosions evident. Two tiny densities adjacent to the neck of the middle phalanx the 5th left finger. It is difficult t o determine if these are calcific density or more dense and calcium such as foreign body. DATA REPOSITORY: RADIATION DOSE DELIVERED:
== END 2021-03-26 12:50 ==
PROVIDERS: PCP Family Medicine; Visit Provider Internal Medicine Rheumatology
DX: L40.50 Arthropathic psoriasis, unspecified (principal); M89.49 Other hypertrophic osteoarthropathy, multiple sites; G56.03 Carpal tunnel syndrome, bilateral upper limbs
CPT/HCPCS: 73120

== ENCOUNTER 2021-03-28 02:39 | Outpatient (CLI) | payer MEDICARE, SELFPAY ==
[2021-03-28 12:09] LABS: Abs Immature Grans 0.02 10^3/uL (0.0-0.06); Absolute Basophil Count 0.05 10^3/uL (0.0-0.2); Absolute Eosinophil Count 0.05 10^3/uL (0.0-0.7); Absolute Lymphocyte Count 0.99 10^3/uL (1.2-3.4); Absolute Monocyte Count 0.33 10^3/uL (0.1-0.8); Absolute Neutrophil Count 7.21 10^3/uL (1.2-6.7); Basophils % 0.6; Eosinophils % 0.6; HCT 40.1 % (40.0-50.0); HGB 12.8 g/dL (13.5-17.5); Immature Grans % 0.2; Lymphocytes % 11.4; MCH 28.3 pg (27.0-33.0); MCHC 31.9 % (32.0-36.0); MCV 88.5 fL (80-95); MPV 9.4 fL (8.0-11.0); Monocytes % 3.8; Neutrophils % 83.4; Nucleated RBC 0 %; Platelet Count 278 10^3/uL (130-400); RBC 4.53 10^6/uL (4.36-5.78); RDW 13.2 % (11.8-14.1); RDW-SD 42.5 fL; WBC 8.65 10^3/uL (4.4-10.8)
[2021-03-28 12:10] LABS: ESR 3 mm/hr (0-20)
[2021-03-28 12:23] LABS: Hemoglobin A1C 6.1 % (<5.7)
[2021-03-28 13:10] LABS: Calculated LDL 32 mg/dL (<100); Cholesterol 109 mg/dL (<200); HDL Cholesterol 55 mg/dL (40-60); Triglyceride 111 mg/dL (<150)
[2021-03-28 13:20] LABS: ALT 23 U/L (16-63); AST 13 U/L (15-37); Albumin 4.1 g/dL (3.4-5.0); Alkaline Phosphatase 67 U/L (46-116); Anion Gap 10.6 mmol/L (3-11); BUN 16 mg/dL (7-18); Bilirubin, Total 0.7 mg/dL (0.2-1.0); CO2 27.4 mmol/L (21.0-32.0); CREATININE 1.3 mg/dL (0.70-1.30); Calcium 9.2 mg/dL (8.5-10.1); Chloride 102 mmol/L (98-107); Estimated GFR 53.39 (mL/min/1.73m2); Glucose 109 mg/dL (74-106); Potassium 4.6 mmol/L (3.5-5.1); Sodium 140 mmol/L (136-145); TSH 2.04 uIU/mL (0.36-3.74); Total Protein 7.5 g/dL (6.4-8.2)
[2021-03-28 13:29] LABS: Uric Acid 6.3 mg/dL (3.5-7.2)
[2021-03-28 13:35] LABS: C-Reactive Protein < 0.05 mg/dL (0.0-0.3)
[2021-03-29 09:54] LABS: Lyme Ab w Rflx to Lyme Confirm Negative (Negative)
== END 2021-03-28 02:40 | disposition home or self-care (01) ==
LOC: LBO 02:40
PROVIDERS: Emergency Medicine; Internal Medicine Rheumatology; PCP Family Medicine; Visit Provider Physician Assistant
DX: E11.9 Type 2 diabetes mellitus without complications (principal); E66.9 Obesity, unspecified; I10 Essential (primary) hypertension; I21.4 Non-ST elevation (NSTEMI) myocardial infarction; L40.50 Arthropathic psoriasis, unspecified; M10.00 Idiopathic gout, unspecified site; M25.50 Pain in unspecified joint; G56.03 Carpal tunnel syndrome, bilateral upper limbs
CPT/HCPCS: 36415; 80053; 80061; 85652; 83036; 84443; 84550; 85025; 86140; 86618

== ENCOUNTER 2021-05-02 11:00 | Outpatient (RCR) | payer SELFPAY ==
[2021-04-11 10:50] VITALS: BP 138/74; PULSE 50
[2021-04-16 10:58] VITALS: BP 148/70; PULSE 50
[2021-04-18 11:05] VITALS: BP 153/74; PULSE 51
[2021-04-23 11:51] VITALS: BP 134/59; PULSE 48
[2021-04-25 10:50] VITALS: BP 141/67; PULSE 52
[2021-04-30 10:55] VITALS: BP 151/66; PULSE 42; O2SAT 95
[2021-05-02 11:01] VITALS: BP 133/64; PULSE 44
== END 2021-05-09 23:59 | disposition home or self-care (01) ==
LOC: CR 11:00
PROVIDERS: PCP Family Medicine; Visit Provider Family Medicine
DX: R69 Illness, unspecified (principal)

== ENCOUNTER 2021-06-04 11:00 | Outpatient (RCR) | payer SELFPAY ==
[2021-05-10 00:16] VITALS: BP 133/64; PULSE 44
[2021-05-14 11:11] VITALS: BP 147/71; PULSE 48
[2021-05-16 11:04] VITALS: BP 152/66; PULSE 46
[2021-05-23 11:41] VITALS: BP 153/68; PULSE 48
[2021-05-28 13:16] VITALS: BP 158/73; PULSE 48
[2021-05-30 11:00] VITALS: BP 149/69; PULSE 50; O2SAT 97
[2021-06-04 11:17] VITALS: BP 163/72; PULSE 46
== END 2021-06-08 23:59 | disposition home or self-care (01) ==
LOC: CR 11:00
PROVIDERS: PCP Family Medicine; Visit Provider Internal Medicine Cardiovascular Disease
DX: R69 Illness, unspecified (principal)

== ENCOUNTER 2021-07-02 11:00 | Outpatient (RCR) | payer SELFPAY ==
[2021-06-09 00:07] VITALS: BP 163/72; PULSE 46
[2021-06-25 11:22] VITALS: BP 145/70; PULSE 46
[2021-07-02 13:46] VITALS: BP 142/76; PULSE 49
[2021-07-04 10:59] VITALS: BP 176/79; PULSE 46
== END 2021-07-09 23:59 | disposition home or self-care (01) ==
LOC: CR 11:00
PROVIDERS: PCP Family Medicine; Visit Provider Internal Medicine Cardiovascular Disease
DX: R69 Illness, unspecified (principal)

== ENCOUNTER 2021-08-06 11:00 | Outpatient (RCR) | payer SELFPAY ==
[2021-07-10 00:14] VITALS: BP 176/79; PULSE 46
[2021-07-11 11:08] VITALS: BP 136/68; PULSE 53
[2021-07-16 11:15] VITALS: BP 148/70; PULSE 56
[2021-07-25 11:17] VITALS: BP 146/70; PULSE 52
[2021-07-30 10:51] VITALS: BP 153/70; PULSE 44
[2021-08-01 11:01] VITALS: BP 152/67; PULSE 54
[2021-08-06 13:25] VITALS: BP 152/76; PULSE 52
== END 2021-08-08 23:59 | disposition home or self-care (01) ==
LOC: CR 11:00
PROVIDERS: PCP Family Medicine; Visit Provider Internal Medicine Cardiovascular Disease
DX: R69 Illness, unspecified (principal)

== ENCOUNTER 2021-09-05 11:03 | Outpatient (RCR) | payer SELFPAY ==
[2021-08-20 11:07] VITALS: BP 137/69; PULSE 55
[2021-08-29 11:21] VITALS: BP 120/60; PULSE 55
[2021-09-03 10:59] VITALS: BP 132/54; PULSE 52
[2021-09-05 10:51] VITALS: BP 131/56; PULSE 50; O2SAT 94
== END 2021-09-08 23:59 | disposition home or self-care (01) ==
LOC: CR 11:03
PROVIDERS: PCP Nurse Practitioner Family; Visit Provider Internal Medicine Cardiovascular Disease
DX: R69 Illness, unspecified (principal)

== ENCOUNTER 2021-10-08 10:50 | Outpatient (RCR) | payer SELFPAY ==
[2021-09-09 00:02] VITALS: BP 131/56; PULSE 50
[2021-09-10 11:30] VITALS: BP 144/64; PULSE 60
[2021-09-12 11:33] VITALS: BP 114/56; PULSE 43
[2021-09-17 11:37] VITALS: BP 112/58; PULSE 45
[2021-09-19 10:58] VITALS: BP 108/50; PULSE 46; O2SAT 96
[2021-09-24 11:00] VITALS: BP 138/65; PULSE 47
[2021-10-01 10:54] VITALS: BP 152/79; PULSE 58
== END 2021-10-09 23:59 | disposition home or self-care (01) ==
LOC: CR 10:50
PROVIDERS: PCP Nurse Practitioner Family; Visit Provider Internal Medicine Cardiovascular Disease
DX: R69 Illness, unspecified (principal)

== ENCOUNTER 2021-11-05 11:08 | Outpatient (RCR) | payer SELFPAY ==
[2021-10-10 00:02] VITALS: BP 152/79; PULSE 58
[2021-10-10 11:00] VITALS: BP 104/56; PULSE 46
[2021-10-15 11:06] VITALS: BP 143/71; PULSE 48
[2021-10-22 11:01] VITALS: BP 104/66; PULSE 54
[2021-10-29 11:00] VITALS: BP 125/72; PULSE 45
[2021-10-31 10:57] VITALS: BP 118/62; PULSE 47
[2021-11-05 10:55] VITALS: BP 118/68; PULSE 43
== END 2021-11-08 23:59 | disposition home or self-care (01) ==
LOC: CR 11:08
PROVIDERS: PCP Nurse Practitioner Family; Visit Provider Internal Medicine Cardiovascular Disease
DX: R69 Illness, unspecified (principal)

== ENCOUNTER 2021-12-05 10:35 | Outpatient (RCR) | payer SELFPAY ==
[2021-11-09 00:04] VITALS: BP 118/68; PULSE 43
[2021-11-12 11:00] VITALS: BP 142/68; PULSE 48
[2021-11-14 10:59] VITALS: BP 132/58; PULSE 33
[2021-11-19 10:54] VITALS: BP 122/62; PULSE 45
[2021-11-21 10:57] VITALS: BP 130/54
[2021-11-28 11:17] VITALS: BP 132/50; PULSE 42
[2021-12-05 10:10] VITALS: BP 120/62; PULSE 48
== END 2021-12-09 23:59 | disposition home or self-care (01) ==
LOC: CR 10:35
PROVIDERS: PCP Nurse Practitioner Family; Visit Provider Internal Medicine Cardiovascular Disease
DX: R69 Illness, unspecified (principal)
CPT/HCPCS: S9472

== ENCOUNTER 2022-01-07 10:51 | Outpatient (RCR) | payer SELFPAY ==
[2021-12-10 00:03] VITALS: BP 120/62; PULSE 48
[2021-12-10 11:44] VITALS: BP 130/70; PULSE 48
[2021-12-12 10:53] VITALS: BP 134/60; PULSE 50
[2021-12-19 11:13] VITALS: BP 110/72; PULSE 47
[2021-12-24 10:52] VITALS: BP 112/82; PULSE 47
[2021-12-26 11:08] VITALS: BP 132/72
[2022-01-07 10:51] VITALS: BP 122/64; PULSE 45
== END 2022-01-08 23:59 | disposition home or self-care (01) ==
LOC: CR 10:51
PROVIDERS: PCP Nurse Practitioner Family; Visit Provider Internal Medicine Cardiovascular Disease
DX: R69 Illness, unspecified (principal)

== ENCOUNTER 2022-01-28 11:43 | Outpatient (CLI) | payer MEDICARE, SELFPAY | END 2022-01-28 11:44 | disposition home or self-care (01) | LOC: CARDOPNVT 11:43 | PROVIDERS: PCP Nurse Practitioner Family; Visit Provider Nurse Practitioner Family | DX: R00.1 Bradycardia, unspecified (principal) | CPT/HCPCS: 93246 ==

== ENCOUNTER 2022-02-06 10:55 | Outpatient (RCR) | payer SELFPAY ==
[2022-01-09 00:04] VITALS: BP 122/64; PULSE 45
[2022-01-09 11:00] VITALS: BP 111/70; PULSE 59
[2022-01-14 11:16] VITALS: BP 132/62; PULSE 56
[2022-01-16 11:00] VITALS: BP 142/58; PULSE 44
[2022-01-23 10:38] VITALS: BP 152/62; PULSE 56
[2022-01-28 10:56] VITALS: BP 132/72; PULSE 52
[2022-02-04 10:50] VITALS: BP 126/56; PULSE 39
[2022-02-06 10:57] VITALS: BP 150/82; PULSE 47
== END 2022-02-08 23:59 | disposition home or self-care (01) ==
LOC: CR 10:55
PROVIDERS: PCP Nurse Practitioner Family; Visit Provider Internal Medicine Cardiovascular Disease
DX: R69 Illness, unspecified (principal)

== ENCOUNTER 2022-02-14 20:10 | Emergency (ER) | payer MEDICARE, SELFPAY ==
[2022-02-14] VITALS (69 sets, daily range): BP systolic 125–174; BP diastolic 55–90; PULSE 41–96; RESP 7–46; TEMP 36.5; O2SAT 93–98
--- NOTE | 2022-02-14 20:00 | RT.EKG_ITS ---
APPROVED REPORT Exam: Resting ECG Reason for Exam: chest pain Patient Location: E HR:54 bpm ECG Measurements Heart Rate 54 AXIS W[place] 172 P 9 QRSd 159 QRS -62 QT 451 T 62 QTc 491 Conclusion Sinus rhythm...normal P axis, V-rate 60- 99 Ventricular trigeminy...trigeminy string>6 w/ V complexes RBBB and LAFB...QRSd >120mS, axis(-40,240) Probable lateral infarct, old...Q>35mS, abnormal ST-T, V5-6 I aVL sinus rhythm, left axis, bifascicular block, frequent PVCs
--- NOTE | 2022-02-14 20:15 | DI.RAD_ITS ---
Exam(s) XR PORTABLE CHEST AP EXAM: XR PORTABLE CHEST AP CLINICAL HISTORY: chest pain, hx of CAD TECHNIQUE: 2D digital imaging was performed. COMPARISON: CR XR ARTHRITIS SERIES from 03/26/2021 FINDINGS: Exam is limited by suboptimal pulmonary inflation and patient body habitus. LUNGS: Grossly clear. No focal area of consolidation is seen. No pleural abnormality seen. HEART: Enlarged. AORTA: Mildly tortuous. BONES: Unremarkable for age. Soft tissues: Unremarkable. IMPRESSION: Limited exam. No acute findings. DATA REPOSITORY: RADIATION DOSE DELIVERED:
[2022-02-14 20:34] LABS: Abs Immature Grans 0.02 10^3/uL (0.0-0.06); Absolute Basophil Count 0.09 10^3/uL (0.0-0.2); Absolute Eosinophil Count 0.17 10^3/uL (0.0-0.7); Absolute Lymphocyte Count 1.78 10^3/uL (1.2-3.4); Absolute Monocyte Count 0.83 10^3/uL (0.1-0.8); Absolute Neutrophil Count 6.67 10^3/uL (1.2-6.7); Basophils % 0.9; Eosinophils % 1.8; HGB 13.9 g/dL (13.5-17.5); Immature Grans % 0.2; Lymphocytes % 18.6; MCH 30.8 pg (27.0-33.0); MCHC 33.1 % (32.0-36.0); MCV 93 fL (80-95); MPV 10.2 fL (8.0-11.0); Monocytes % 8.7; Neutrophils % 69.8; Platelet Count 238 10^3/uL (130-400); RBC 4.52 10^6/uL (4.36-5.78); RDW 12.9 % (11.8-14.1); RDW-SD 43.8 fL; WBC 9.56 10^3/uL (4.4-10.8)
[2022-02-14] MEDS: Aspirin 81 MG CHEW 243 MG CH (20:36)
--- NOTE | 2022-02-14 20:39 | ED.GENADUL_ITS ---
Discharge Plan Discharge Details Chief Complaint: Chest Pain Primary Care Provider: Lucy Edwards ED Provider: Lloyd Jensen Home Meds and New Rx's Prescriptions: No Action nitroglycerin 0.4 mg tablet, sublingual 0.4 mg Sublingual PRN Qty: 20 1RF methotrexate sodium 2.5 mg tablet 10 mg PO QWEEK prednisone 1 mg tablet 1 mg PO DAILY mupirocin 2 % ointment 1 applic TP TID Qty: 22 0RF rosuvastatin 20 mg tablet 20 mg PO HS Qty: 90 3RF hydrochlorothiazide 12.5 mg tablet 12.5 mg PO DAILY Qty: 90 3RF diclofenac sodium 50 mg tablet,delayed release (DR/EC) 50 mg PO BID Qty: 60 5RF metoprolol tartrate 25 mg tablet 12.5 mg PO DAILY Qty: 90 3RF allopurinol 100 mg tablet 100 mg PO DAILY Qty: 90 3RF amlodipine [Norvasc] 5 mg tablet 5 mg PO QAM Qty: 90 3RF pantoprazole 40 mg tablet,delayed release (DR/EC) 40 mg PO DAILY Qty: 90 3RF aspirin 81 mg Tablet,Chewable 81 mg PO DAILY acetaminophen 500 mg tablet 500 mg PO Q6H PRN PRN (Reason: pain) Qty: 60 3RF Medical Decision Making 81-year-old male history of coronary disease, prior stenting, presents with anterior chest pain on exertion over the past several days, worsening this evening around 4 PM. Patient is alert and oriented nontoxic hemodynamically stable. Sinus rhythm on EKG and monitor however frequent PVCs. Patient endorses frequent PVCs, had recent Holter monitor as an outpatient for evaluation of bradycardia. Endorses med compliance. Feeling more comfortable currently. Consider ACS versus electrolyte abnormality versus symptomatic PVCs lower suspicion for PE or aortic pathology. Will obtain basic labs troponin EKG chest x-ray, will load remaining dose of aspirin. Disposition pending reassessment 23:05 pending second trop, chest pain free; likely close followup with primary cardiology HPI General Date/Time Provider Initiated Documentation: 02/14/22 20:15 . HPI Narrative: 81-year-old male history of coronary disease, prior stent, on a daily aspirin, known PVCs, recent Holter monitor for bradycardia presents with anterior chest pain nonexertional over the past several days worse this evening now feeling better, pain arose while he was preparing dinner around 4 PM. Endorses medication compliance no history of thromboembolic disease Related Data Home Medications Medication Instructions Recorded Confirmed mupirocin 2 % topical ointment 1 applic topical TID #22 grams 05/30/19 02/14/22 aspirin 81 mg chewable tablet 81 mg PO DAILY 10/13/19 02/14/22 acetaminophen 500 mg tablet 500 mg PO Q6H PRN PRN pain #60 tabs 10/18/19 02/14/22 nitroglycerin 0.4 mg sublingual 0.4 mg sublingual PRN #20 tabs 01/10/20 02/14/22 tablet rosuvastatin 20 mg tablet 20 mg PO HS #90 tab-caps 02/25/21 02/14/22 hydrochlorothiazide 12.5 mg tablet 12.5 mg PO DAILY #90 tabs 06/25/21 02/14/22 diclofenac sodium 50 mg 50 mg PO BID #60 tabs 07/30/21 02/14/22 tablet,delayed release metoprolol tartrate 25 mg tablet 12.5 mg PO DAILY #90 tabs 08/06/21 02/14/22 allopurinol 100 mg tablet 100 mg PO DAILY #90 tab-caps 09/09/21 02/14/22 amlodipine 5 mg tablet (Norvasc) 5 mg PO QAM #90 tabs 11/18/21 02/14/22 pantoprazole 40 mg tablet,delayed 40 mg PO DAILY #90 tab-caps 01/13/22 02/14/22 release methotrexate sodium 2.5 mg tablet 10 mg PO QWEEK 01/23/22 02/14/22 prednisone 1 mg tablet 1 mg PO DAILY 01/23/22 02/14/22 Previous Rx's Medication Instructions Recorded mupirocin 2 % topical ointment 1 applic topical TID #22 grams 05/30/19 acetaminophen 500 mg tablet 500 mg PO Q6H PRN PRN pain #60 tabs 10/18/19 nitroglycerin 0.4 mg sublingual 0.4 mg sublingual PRN #20 tabs 01/10/20 tablet rosuvastatin 20 mg tablet 20 mg PO HS #90 tab-caps 02/25/21 hydrochlorothiazide 12.5 mg tablet 12.5 mg PO DAILY #90 tabs 06/25/21 diclofenac sodium 50 mg 50 mg PO BID #60 tabs 07/30/21 tablet,delayed release metoprolol tartrate 25 mg tablet 12.5 mg PO DAILY #90 tabs 08/06/21 allopurinol 100 mg tablet 100 mg PO DAILY #90 tab-caps 09/09/21 amlodipine 5 mg tablet (Norvasc) 5 mg PO QAM #90 tabs 11/18/21 pantoprazole 40 mg tablet,delayed 40 mg PO DAILY #90 tab-caps 01/13/22 release Allergies Allergy/AdvReac Type Severity Reaction Status Date / Time No Known Allergies Allergy Verified 01/23/22 08:14 General Stated Complaint: Chest Pain MAYA: 3 Review of Systems Narrative: Review of Systems Constitutional: negative Eyes: negative ENT: negative Cardiovascular: Chest pain Respiratory: negative Gastrointestinal: negative : negative Musculoskeletal: negative Skin: negative Neurologic: negative Psych: negative PFSH All Active Problems Coronary artery disease (Chronic) 2013 s/p NSTEMI, RCA stent Bradycardia (Chronic) Chronic mild bradycardia Right bundle branch block (Chronic) Hypertension (Chronic) Psoriatic arthritis (Chronic) [facility] Psoriasis (Chronic) Prediabetes (Chronic) Peripheral polyneuropathy (Chronic) 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 RCA stent. F/U with cardiology Surgical History S/P colonoscopy S/P right knee surgery (10/18/19) Right Knee Arthroscopic Partial Lateral and Medial Menisectomies Status post bilateral cataract extraction Status post left knee replacement (04/19/19) Family History Mother , age 65 Lung cancer Father , AGE 45 Hodgkins disease Brother Essential hypertension Son No problems noted. Son No problems noted. Daughter No problems noted. Maternal Grandfather No problems noted. Paternal Grandfather No problems noted. Maternal Grandmother No problems noted. Paternal Grandmother No problems noted. Social History (Updated 01/27/22 @ 12:23 by Nadine Kruger) Smoking/Tobacco Use Status: Former Tobacco Use tobacco type: cigarettes Quit Date: 02/09/82 Tobacco: How many years used: 40 Second Hand Exposure: Yes Smoking risk assessment performed?: Yes Alcohol Intake: current Alcohol Intake frequency: a few times a month Alcohol type: beer and wine Drug use: Never Substance use type: does not use Caregiver/Support person: No Household members: spouse Housing: house Communication Needs: Hard of Hearing and Corrective Lenses Do you need help understanding health information?: Never Pets and animals: Yes Pets and animals: cat(s) Sexually active: No Do you think of yourself as: straight/heterosexual Current gender identity: male What is your relationship status?: How often do you talk on the phone with friends or family?: once per week How often do you get together with friends or relatives?: once per week How often do you attend sikhism or latter-day services?: 4 or more times per year Do you belong to any clubs or organized social groups?: yes Panel score (0-1 are the most socially isolated patients): 3 What type of physical activity do you participate in: walking Duration: 30-45 minutes/day Frequency: 1-2 times per week Meaghan/Congregation: Taoist Special meaghan needs: No Seatbelt use: always Helmet use: No Drive intox or ride w/intox dedicated truck driver: No Do you feel safe at home: Yes Do you feel safe in your relationship?: Yes Exam Narrative Exam Narrative: Physical Examination General: alert, awake, cooperative, resting comfortably, no acute distress HEENT: normocephalic, atraumatic; PERRL, EOM intact, conjunctiva normal; no nasal discharge; moist mucous membranes, oral and pharyngeal mucosa normal, tolerating secretions Neck: supple, trachea midline; full ROM Chest: normal to inspection Respiratory: normal respiratory effort, speaking in full sentences, clear to auscultation, no wheezing, rales or rhonchi Cardiac: regular rate, regular rhythm, S1S2 intact, no murmurs rubs or gallops GI: abdomen soft, non-tender, non-distended; no palpable mass or hepatosplenomegaly Skin: no lesions, rashes or trauma appreciated Neuro: AAOx3, normal speech, moving all extremities Extremities: No peripheral edema Psych: Appropriate mood and affect Course Vital Signs Vital signs: Vital Signs Temperature 36.5 C 02/14/22 20:14 Pulse 75 02/14/22 20:14 Respiratory Rate 18 02/14/22 20:14 Blood Pressure 154/69 H 02/14/22 20:14 Pulse Oximetry 97 02/14/22 20:14 Temperature 36.5 C 02/14/22 20:14 Temperature Source Oral 02/14/22 20:14 Pulse 75 02/14/22 20:14 Respiratory Rate 18 02/14/22 20:14 Respiratory Effort 02/14/22 20:23 Respiratory Depth Normal 02/14/22 20:23 Respiratory Pattern Normal 02/14/22 20:23 Blood Pressure 154/69 H 02/14/22 20:14 Blood Pressure Position Sitting 02/14/22 20:14 Pulse Oximetry 97 02/14/22 20:14 Oxygen Delivery Method Room Air 02/14/22 20:14 Oxygen Flow Rate 0 02/14/22 20:14 Pain Level 1 02/14/22 20:14 PAWSS Have you Been Recently Intoxicated or Drunk Within the Last 30 days?: No Have you Ever Experienced Previous Episodes of Alcohol Withdrawal?: No Have you ever Experienced Withdrawal Seizures?: No Have you ever Experienced Delirium Tremens(DT)s?: No Have you ever undergone Alcohol Rehabilitation Treatment (i.e, inpt ot outpatient treatment programs)?: No Have you ever Experienced Blackouts?: No Have you ever Combined Alcohol with other Downers within the last 90 days?: No Have you ever Combined Alcohol with any other Substance of Abuse during the last 90 days?: No Positive Blood Alcohol level on Presentation? [PCS.BAL]: No Evidence of Increased Autonomic Activity (i.e. HR>120, tremor, sweating, agitation, nausea)?: No Result: 0
[2022-02-14 20:45] LABS: Magnesium 2.3 mg/dL (1.8-2.4)
[2022-02-14 20:48] LABS: PTT Activated 23.4 sec (21.0-27.5)
[2022-02-14 20:58] LABS: ALT 28 U/L (16-63); AST 19 U/L (15-37); Albumin 4.6 g/dL (3.4-5.0); Alkaline Phosphatase 60 U/L (46-116); Anion Gap 8.4 mmol/L (3-11); BUN 19 mg/dL (7-18); Bilirubin, Total 0.7 mg/dL (0.2-1.0); CO2 26.6 mmol/L (21.0-32.0); CREATININE 1.2 mg/dL (0.70-1.30); Calcium 9.3 mg/dL (8.5-10.1); Chloride 104 mmol/L (98-107); Estimated GFR 61.52 (mL/min/1.73m2); Glucose 108 mg/dL (74-106); NT-proBNP 244 pg/mL (<300); Potassium 4.3 mmol/L (3.5-5.1); Sodium 139 mmol/L (136-145); Total Protein 7.9 g/dL (6.4-8.2); Troponin I < 50 ng/L (<or=60)
--- NOTE | 2022-02-14 21:37 | DI.VRAD_ITS ---
PROCEDURE INFORMATION: Exam: XR Chest Exam date and time: 02/14/2022 8:35 PM Age: 81 years old Clinical indication: Other: Chest pain HX of cad TECHNIQUE: Imaging protocol: Radiologic exam of the chest. Views: 1 view. COMPARISON: CR CHEST 2 VIEWS PA,LAT 07/15/2015 10:59 AM FINDINGS: Lungs: Low lung volumes with no discrete mass or consolidation detected. Pleural spaces: No pneumothorax or pleural effusion detected. Heart/Mediastinum: Cardiac silhouette is enlarged and vessel margins are sharply defined. Bones/joints: No acute osseous lesions are detected. IMPRESSION: Low lung volumes with prominence of the transverse cardiac dimension and no new parenchymal mass or consolidation detected. Dictated and Authenticated by: Branden Francisco MD. Ordering:IWONA Desai MD
--- NOTE | 2022-02-14 23:15 | RT.EKG_ITS ---
APPROVED REPORT Exam: Resting ECG Reason for Exam: 2nd trop/chest pain Patient Location: E HR:69 bpm ECG Measurements Heart Rate 69 AXIS IN 176 P 0 QRSd 159 QRS -58 QT 482 T 41 QTc 519 Conclusion Sinus rhythm...normal P axis, V-rate 60- 99 Multiform ventricular premature complexes...short R-R, variable morphology RBBB and LAFB...QRSd >120mS, axis(-40,240) Physician: no stemi, frequent pvc's, RBBB w/ LAFB, unchanged from prior ekg
[2022-02-14 23:37] LABS: Troponin I < 50 ng/L (<or=60)
[2022-02-15] VITALS: PULSE 58; RESP 16; O2SAT 97
[2022-02-15 00:01] VITALS: PULSE 57; RESP 19; O2SAT 96
--- NOTE | 2022-02-15 00:01 | ED.PROG_ITS ---
Date of service: 02/15/22 Time of Service: 00:03 Medical Decision Making Case was signed out by my colleague Dr. Behzad Pool. Please refer to his HPI, physical exam, assessment and plan. At time of signout we were awaiting repeat troponin. Repeat troponin has come back, and it is normal. Repeat EKG i s stable. On reassessment patient feels well and is requesting discharge home. Symptoms at this time appear clinically inconsistent with STEMI or NSTEMI. Symptoms appear inconsistent with ACS. Symptoms appear clinically inconsistent with life-threatening dissection or aneurysm. Discussed red flags for which to return. Patient remains chest pain-free. I have extensively reviewed the treatment plan and discharge instructions with the patient and their family. I have addressed all patient concerns at this time. The patient and family was made aware of what symptoms to monitor for that would warrant a return to the emergency department. Discussed the plan with the patient and family, they demonstrate verbal understanding and agreement with our assessment and plan at this time. The documentation in this chart was dictated using [employer]tal[employer] dictation software. Please excuse any dictation errors. Sign Out Sign Out Data: Sign Out Comment: pending second trop; likely dc home with cards followup Last updated by Lloyd Jensen MD at 02/14/22 23:09 Discharge Plan Disposition Patient Disposition: Home Condition: Good Discharge Details Chief Complaint: Chest Pain Clinical Impression: Chest discomfort Primary Care Provider: Lucy Edwards ED Provider: Tristian Sauer Home Meds and New Rx's Prescriptions: No Action nitroglycerin 0.4 mg tablet, sublingual 0.4 mg Sublingual PRN Qty: 20 1RF methotrexate sodium 2.5 mg tablet 10 mg PO QWEEK prednisone 1 mg tablet 1 mg PO DAILY mupirocin 2 % ointment 1 applic TP TID Qty: 22 0RF rosuvastatin 20 mg tablet 20 mg PO HS Qty: 90 3RF hydrochlorothiazide 12.5 mg tablet 12.5 mg PO DAILY Qty: 90 3RF diclofenac sodium 50 mg tablet,delayed release (DR/EC) 50 mg PO BID Qty: 60 5RF metoprolol tartrate 25 mg tablet 12.5 mg PO DAILY Qty: 90 3RF allopurinol 100 mg tablet 100 mg PO DAILY Qty: 90 3RF amlodipine [Norvasc] 5 mg tablet 5 mg PO QAM Qty: 90 3RF pantoprazole 40 mg tablet,delayed release (DR/EC) 40 mg PO DAILY Qty: 90 3RF aspirin 81 mg Tablet,Chewable 81 mg PO DAILY acetaminophen 500 mg tablet 500 mg PO Q6H PRN PRN (Reason: pain) Qty: 60 3RF Discharge Instructions Instructions: Chest Pain (ED) Additional Instructions: At this time your work-up is reassuring. Your EKG is stable, and your heart markers show no evidence of heart attack. Please follow-up closely with your seasonal driver. If you notice any worsening of your symptoms, or any new symptoms such as vomiting, diarrhea, fever, chills, shortness of breath, chest pain, numbness, weakness, or fainting , please return immediately to the emergency department for reevaluation. Please follow up with your primary care provider as soon as possible for reassessment and reevaluation. As always, it was a pleasure participating in your medical care today. Referrals: Lucy Edwards NP [Primary Care Provider] - Celina Rojas MD [ [facility] STAFF PHYSICIAN] -
[2022-02-15 00:02] VITALS: PULSE 46; RESP 14; O2SAT 96
[2022-02-15 00:03] VITALS: BP 142/68; PULSE 46; PULSE 62; RESP 19; O2SAT 95
== END 2022-02-15 00:08 | disposition home or self-care (01) ==
PROVIDERS: Emergency Medicine; Emergency Provider Student in an Organized Health Care Education/Training Program; PCP Nurse Practitioner Family
DX: I49.3 Ventricular premature depolarization; Z91.14 Patient's other noncompliance with medication regimen; R06.02 Shortness of breath
CPT/HCPCS: 80053; 93005; 99283; 71045; 83735; 83880; 84484; 85025; 85610; 85730; 93010; 99284

== ENCOUNTER 2022-02-24 07:48 | Outpatient (CLI) | payer MEDICARE, SELFPAY ==
--- NOTE | 2022-02-24 12:09 | W.CARDEVENT ---
Date of service: 02/24/22 Time of Service: 12:09 Cardiac Event Recorder Referring Provider:: Lucy Edwards Indications:: Bradycardia Cardiac Event Note: This is a 14-day cardiac event monitor reportedly ordered for bradycardia. Predominant rhythm was sinus with an average heart rate of 61. Minimum was 35, maximum 139 There were frequent ventricular ectopic beats, occasional couplets. There were multiple runs of nonsustained ventricular tachycardia. The majority of these were 3-4 beats long. The longest run was 8 beats. There were occasional atrial premature beats. Self-limited atrial runs were noted, the longest of which was 14 beats in duration There was no atrial fibrillation, no high-grade AV block, no pauses greater than 3 seconds Patient symptoms were reported which did not reliably correspond to any dysrhythmia
== END 2022-02-24 07:49 | disposition home or self-care (01) ==
PROVIDERS: PCP Nurse Practitioner Family; Visit Provider Internal Medicine Cardiovascular Disease
DX: I49.1 Atrial premature depolarization (principal); I49.3 Ventricular premature depolarization
CPT/HCPCS: 93248; 93272

== ENCOUNTER 2022-03-04 03:17 | Outpatient (CLI) | payer MEDICARE, SELFPAY ==
[2022-03-04 12:31] LABS: Abs Immature Grans 0.01 10^3/uL (0.0-0.06); Absolute Basophil Count 0.09 10^3/uL (0.0-0.2); Absolute Eosinophil Count 0.27 10^3/uL (0.0-0.7); Absolute Lymphocyte Count 1.52 10^3/uL (1.2-3.4); Absolute Monocyte Count 0.62 10^3/uL (0.1-0.8); Absolute Neutrophil Count 3.98 10^3/uL (1.2-6.7); Basophils % 1.4; Eosinophils % 4.2; HCT 40.6 % (40.0-50.0); HGB 13.5 g/dL (13.5-17.5); Immature Grans % 0.2; Lymphocytes % 23.4; MCH 30.8 pg (27.0-33.0); MCHC 33.3 % (32.0-36.0); MCV 93 fL (80-95); Monocytes % 9.6; Neutrophils % 61.2; Platelet Count 229 10^3/uL (130-400); RBC 4.39 10^6/uL (4.36-5.78); RDW 12.8 % (11.8-14.1); RDW-SD 43.8 fL; WBC 6.49 10^3/uL (4.4-10.8)
[2022-03-04 12:36] LABS: ESR < 1 mm/hr (0-20)
[2022-03-04 12:52] LABS: Hemoglobin A1C 5.8 % (<5.7)
[2022-03-04 12:55] LABS: ALT 26 U/L (16-63); AST 20 U/L (15-37); Albumin 4.2 g/dL (3.4-5.0); Alkaline Phosphatase 50 U/L (46-116); Anion Gap 5.9 mmol/L (3-11); BUN 16 mg/dL (7-18); Bilirubin, Total 0.9 mg/dL (0.2-1.0); CO2 30.1 mmol/L (21.0-32.0); CREATININE 1.2 mg/dL (0.70-1.30); Calcium 9.3 mg/dL (8.5-10.1); Calculated LDL 39 mg/dL (<100); Chloride 104 mmol/L (98-107); Cholesterol 115 mg/dL (<200); Estimated GFR 61.52 (mL/min/1.73m2); Glucose 120 mg/dL (74-106); HDL Cholesterol 53 mg/dL (40-60); Potassium 3.6 mmol/L (3.5-5.1); Sodium 140 mmol/L (136-145); TSH (W/Ref FT4) 3.67 uIU/mL (0.36-3.74); Triglyceride 116 mg/dL (<150)
[2022-03-04 13:10] LABS: Uric Acid 6.3 mg/dL (3.5-7.2)
[2022-03-04 22:03] LABS: CRP, High Sensitivity 1.76 mg/L (See Note)
[2022-03-04 23:20] LABS: PSA, Screening 0.6 ng/mL (<=6.5)
== END 2022-03-04 03:18 | disposition home or self-care (01) ==
LOC: LOS 03:17
PROVIDERS: PCP Nurse Practitioner Family; Visit Provider Nurse Practitioner Family
DX: I10 Essential (primary) hypertension (principal); I25.10 Atherosclerotic heart disease of native coronary artery without angina pectoris; L40.50 Arthropathic psoriasis, unspecified; M10.9 Gout, unspecified; E66.9 Obesity, unspecified; N40.1 Benign prostatic hyperplasia with lower urinary tract symptoms; Z12.5 Encounter for screening for malignant neoplasm of prostate; R73.03 Prediabetes
CPT/HCPCS: 36415; 80053; 80061; 84153; 85652; 86141; 83036; 84443; 84550; 85025

== ENCOUNTER → 2022-03-11 09:25 | Outpatient (BNVA) | payer MEDICARE, SELFPAY | PROVIDERS: PCP Nurse Practitioner Family; Referring Provider Nurse Practitioner Family; Visit Provider Internal Medicine Cardiovascular Disease | DX: I25.10 Atherosclerotic heart disease of native coronary artery without angina pectoris (principal); I47.29 Other ventricular tachycardia; I10 Essential (primary) hypertension; R07.89 Other chest pain; I25.2 Old myocardial infarction | CPT/HCPCS: 99213 ==

== ENCOUNTER 2022-03-11 10:54 | Outpatient (RCR) | payer SELFPAY ==
[2022-02-09 00:16] VITALS: BP 150/82; PULSE 47
[2022-02-11 11:06] VITALS: BP 136/68; PULSE 58
[2022-02-13 11:00] VITALS: BP 132/62; PULSE 52
[2022-02-18 11:17] VITALS: BP 150/70; PULSE 51
[2022-02-20 11:02] VITALS: BP 112/72; PULSE 47
[2022-02-25 10:42] VITALS: BP 142/58; PULSE 45
[2022-02-27 11:09] VITALS: BP 128/52; PULSE 49
[2022-03-04 11:11] VITALS: BP 124/68; PULSE 44
[2022-03-11 11:01] VITALS: BP 132/62; PULSE 53
== END 2022-03-11 23:59 | disposition home or self-care (01) ==
LOC: CR 10:54
PROVIDERS: PCP Nurse Practitioner Family; Visit Provider Internal Medicine Cardiovascular Disease
DX: R69 Illness, unspecified (principal)

== ENCOUNTER 2022-03-13 01:53 | Outpatient (CLI) | payer MEDICARE, SELFPAY ==
--- NOTE | 2022-03-13 07:30 | DI.US_ITS ---
APPROVED REPORT EXAM: Comprehensive 2D, Doppler, and color-flow Echocardiogram Patient Location: Out-Patient Leather Grader: Saskia Baltazar RDCS (AE) Indications: Check LV function, CAD, Nonsustained ventricular tachycardia Other Information Study Quality: Adequate. Technically limited study due to body habitus. Conclusion Normal left ventricular wall thickness and chamber size. Estimated ejection fraction overall appears borderline, 50 to 55%. No segmental wall motion abnormalities were identified. Patient had frequen t PVCs throughout the study including couplets and triplets which caused significant [id number] harriett iation Normal right ventricular size and systolic function Left atrium is moderately dilated. Right atrial size is normal Aortic valve is sclerotic and trileaflet without stenosis or regurgitation Normal mitral valve with mild to moderate regurgitation Normal tricuspid valve with mild regurgitation. Estimated right ventricular systolic pressure is 23 mmHg Mildly dilated ascending aorta, 3.58 cm Wall motion Left Ventricle The left ventricle is normal size. Left ventricular function is borderline There is normal left ventr icular wall thickness. No segmental wall motion abnormalities are identified There is no ventricular septal defect visualized. LVEF is 50-55% Right Ventricle The right ventricle is normal size. The right ventricular systolic function is normal. The RVSP is 22 .8 mmHg. Atria Left atrium is moderately dilated. The right atrium size is normal. The interatrial septum is intact with no evidence for an atrial septal defect. Aortic Valve The aortic valve is mildly sclerotic Aortic valve is trileaflet. There is no aortic valvular stenosis . No aortic regurgitation is present. Mitral Valve The mitral valve is normal in structure. No evidence of mitral valve stenosis. Mild to moderate mitr al regurgitation. Tricuspid Valve The tricuspid valve is normal in structure. There is no tricuspid valve stenosis. Mild tricuspid regu rgitation. Pulmonic Valve The pulmonary valve is normal in structure. There is no pulmonic valvular stenosis. Trace pulmonic re gurgitation. Great Vessels The aortic root is normal in size. The ascending aorta is mildly dilated. Aortic arch is normal in ca liber. IVC is normal in size and collapses >50% with inspiration. Pericardium There is no pericardial effusion. 2D Dimensions IVSD d PLAX 0.99 cm M: 0.6-1.2 LV Vol A2C d MOD 167.1 mL LVPW d PLAX 0.94 cm M: 0.6 - 1.2 LV Vol A4C d MOD 154.7 mL LVID d PLAX 5.49 cm M: 4.2 - 5.8 LA Area A4C s MOD 34.22 cm2 LVDs 4.25 cm M: 2.5 - 4.0 LA Area A2C s MOD 27.61 cm2 Ao Root d 2.74 cm M: 3.1 - 3.7 LV EF A4C MOD 40.2 % RA Area A4C 17.39 cm2 LV EF A2C MOD 41.5 % Ao Asc Diam d 3.58 cm M: 2.6 - 3.4 LV EF Biplane MOD 37.5 % LV EF Teichholz 44.5 % SV 62.02 mL LVEF (Euceda's) 37.46 % M: 52 - 72 LV Volume 165.59 mL M: 62 - 150 LV Volume Index 68.42 mL/m2 M: 34 - 74 LV Vol Biplane MOD 165.6 mL FS 22.30 % M-Mode TAPSE 2.62 cm (M/F) >1.7 LV Diastology MV E' medial 0.051 (>0.07 m/s) E/A Ratio 1.6 LV E/e MED 14.15 (<14) MV E Vmax 0.73 (0.4-1.3 m/s) MV E' lateral 0.033 (>0.1 m/s) MV A Vmax 0.45 (0.4-1.3 m/s) LV E/e LAT 22.05 (<14) MV E/A Ratio 1.52 MV E/E' medial 14.19 MV E/E' lateral 22.07 Aortic Valve LVOT Area 3.90 cm2 AoV Area Vmax 2.35 cm2 LVOT Vmax 0.87 m/s IMER Mean Asa. 2.38 cm2 LVOT Mean Asa. 0.58 m/s LVOT Peak Grad 3.0 mmHg LVOT Mean Grad 1.6 mmHg LVOT VTI 0.180 m LVOT Diam s 2.20 cm AoV Vmax 1.45 m/s Velocity Ratio 0.60 AoV Mean Asa. 0.95 m/s AoV Peak Grad 8.4 mmHg LVOT SV 70.12 mL AoV Mean Grad 4.2 mmHg AoV VTI 0.300 m AoV Area VTI 2.33 cm2 Mitral Valve MV DT 269 (160-240 msec) MR Vmax 4.08 m/s MV PHT 78 msec MR VTI 1.282 m MV Area PHT 2.82 cm2 MR Peak Grad 66.7 mmHg MV VTI 0.195 m MR Mean Grad 43.9 mmHg MV Area VTI 3.59 (4.0-6.0 cm2) Pulmonary Valve PV Vmax 0.71 (0.5-1.5 m/s) RVOT Peak Gr. 1.38 mmHg PV Peak Grad 2.0 mmHg RVOT Mean Gr. 0.70 mmHg PV Mean Grad 1.2 mmHg RVOT VTI 0.119 m PV VTI 0.153 m RVOT Vmax 0.59 m/s Tricuspid Valve TR Peak Grad 19.7 mmHg TR Vmax 2.22 m/s RA Pressure 3.00 mmHg RVSP (TR) 22.8 mmHg
== END 2022-03-13 02:13 ==
PROVIDERS: PCP Nurse Practitioner Family; Visit Provider Internal Medicine Cardiovascular Disease
DX: I25.10 Atherosclerotic heart disease of native coronary artery without angina pectoris (principal); I47.29 Other ventricular tachycardia
CPT/HCPCS: 93306

== ENCOUNTER → 2022-04-29 09:00 | Outpatient (BNVA) | payer MEDICARE, SELFPAY | PROVIDERS: PCP Nurse Practitioner Family; Referring Provider Nurse Practitioner Family; Visit Provider Internal Medicine Cardiovascular Disease | DX: I25.10 Atherosclerotic heart disease of native coronary artery without angina pectoris (principal); I47.29 Other ventricular tachycardia; I49.3 Ventricular premature depolarization; I10 Essential (primary) hypertension | CPT/HCPCS: 99213 ==

== ENCOUNTER 2022-05-08 10:51 | Outpatient (RCR) | payer SELFPAY ==
[2022-04-09 00:09] VITALS: BP 114/65; PULSE 51
[2022-04-15 11:06] VITALS: BP 138/78; PULSE 34
[2022-04-24 11:04] VITALS: PULSE 48
[2022-04-29 10:27] VITALS: BP 132/67; PULSE 42
[2022-05-01 11:12] VITALS: BP 128/80; PULSE 55
[2022-05-06 10:50] VITALS: BP 144/78; PULSE 50
[2022-05-08 10:52] VITALS: BP 147/61; PULSE 51
[2022-05-13 11:18] VITALS: BP 128/72; PULSE 48
== END 2022-05-09 23:59 | disposition home or self-care (01) ==
LOC: CR 10:51
PROVIDERS: PCP Nurse Practitioner Family; Visit Provider Internal Medicine Cardiovascular Disease

== ENCOUNTER 2022-06-05 11:17 | Outpatient (RCR) | payer SELFPAY ==
[2022-05-10 00:17] VITALS: BP 147/61; PULSE 51
[2022-05-20 11:16] VITALS: BP 115/54; PULSE 49
[2022-05-22 10:54] VITALS: BP 155/63; PULSE 43
[2022-05-27 11:02] VITALS: BP 140/58; PULSE 43
[2022-06-03 11:38] VITALS: BP 118/58; PULSE 39
[2022-06-05 13:22] VITALS: BP 130/72
== END 2022-06-08 23:59 | disposition home or self-care (01) ==
LOC: CR 11:17
PROVIDERS: PCP Nurse Practitioner Family; Visit Provider Internal Medicine Cardiovascular Disease
DX: R69 Illness, unspecified (principal)

== ENCOUNTER 2022-07-03 10:59 | Outpatient (RCR) | payer SELFPAY ==
[2022-06-09 00:07] VITALS: BP 130/72; PULSE 39
[2022-06-10 10:52] VITALS: BP 119/66; PULSE 45
[2022-06-12 11:05] VITALS: BP 131/62; PULSE 60
[2022-06-17 10:53] VITALS: BP 122/72; PULSE 47
[2022-06-19 11:19] VITALS: BP 127/63; PULSE 57
[2022-06-24 10:44] VITALS: BP 141/61; PULSE 48
[2022-06-26 11:34] VITALS: BP 123/61; PULSE 46
[2022-07-01 10:55] VITALS: BP 131/65; PULSE 44
[2022-07-03 10:50] VITALS: BP 134/66; PULSE 40
== END 2022-07-09 23:59 | disposition home or self-care (01) ==
LOC: CR 10:59
PROVIDERS: PCP Nurse Practitioner Family; Visit Provider Internal Medicine Cardiovascular Disease

== ENCOUNTER 2022-08-05 10:59 | Outpatient (RCR) | payer SELFPAY ==
[2022-07-10 00:05] VITALS: BP 134/66; PULSE 40
[2022-07-10 13:24] VITALS: BP 136/55; PULSE 49
[2022-07-15 10:39] VITALS: BP 142/72; PULSE 55
[2022-07-17 11:16] VITALS: BP 143/68; PULSE 49
[2022-07-22 10:47] VITALS: BP 133/76; PULSE 51
[2022-07-24 10:56] VITALS: BP 111/62; PULSE 42
[2022-07-29 11:11] VITALS: BP 156/62; PULSE 45
[2022-07-31 08:54] VITALS: BP 156/81; PULSE 74
[2022-07-31 10:55] VITALS: BP 136/68; PULSE 48
[2022-08-05 10:59] VITALS: BP 132/78; PULSE 50
== END 2022-08-08 23:59 | disposition home or self-care (01) ==
LOC: CR 10:59
PROVIDERS: PCP Nurse Practitioner Family; Visit Provider Internal Medicine Cardiovascular Disease
DX: R69 Illness, unspecified (principal)

== ENCOUNTER 2022-09-01 14:15 | Outpatient (CLI) | payer MEDICARE, SELFPAY ==
--- NOTE | 2022-09-01 13:15 | DI.RAD_ITS ---
Exam(s) XR KNEE LT 3V AP,LAT,KRISTA EXAM: XR KNEE LT 3V AP,LAT,KRISTA CLINICAL HISTORY: pain L TKR. TECHNIQUE: 2D digital imaging was performed. Three images were obtained. Merchant's, AP and lateral views were obtained. COMPARISON: CR XR KNEE LT 2V AP,LAT from 04/27/2020 FINDINGS: BONES: There are stable post operative changes present. No fracture or dislocation. JOINTS: The orthopedic hardware is in good position. No evidence of hardware loosening. SOFT TISSUE: Normal. IMPRESSION: Stable postoperative changes. DATA REPOSITORY: RADIATION DOSE DELIVERED:
== END 2022-09-01 14:16 | disposition home or self-care (01) ==
LOC: DIORS 14:16
PROVIDERS: PCP Nurse Practitioner Family; Referring Provider Nurse Practitioner Family; Visit Provider Student in an Organized Health Care Education/Training Program
DX: Z96.652 Presence of left artificial knee joint; T84.84XD Pain due to internal orthopedic prosthetic devices, implants and grafts, subsequent encounter
CPT/HCPCS: 73562; 99213

== ENCOUNTER 2022-09-04 10:54 | Outpatient (RCR) | payer SELFPAY ==
[2022-08-09 00:03] VITALS: BP 132/78; PULSE 50
[2022-08-14 10:54] VITALS: BP 120/60; PULSE 32; O2SAT 96
[2022-08-19 11:08] VITALS: BP 149/62; PULSE 41
[2022-08-21 11:42] VITALS: BP 123/52; PULSE 50
[2022-08-26 10:51] VITALS: BP 153/62; PULSE 40
[2022-08-28 11:04] VITALS: BP 118/63; PULSE 42
[2022-09-04 10:57] VITALS: BP 132/67; PULSE 39
[2022-09-04 11:07] VITALS: BP 132/67; PULSE 39
== END 2022-09-08 23:59 | disposition home or self-care (01) ==
LOC: CR 10:54
PROVIDERS: PCP Nurse Practitioner Family; Visit Provider Internal Medicine Cardiovascular Disease
DX: R69 Illness, unspecified (principal)

== ENCOUNTER 2022-10-07 03:21 | Outpatient (CLI) | payer MEDICARE, SELFPAY ==
[2022-10-07 12:19] LABS: Abs Immature Grans 0.02 10^3/uL (0.0-0.06); Absolute Basophil Count 0.09 10^3/uL (0.0-0.2); Absolute Eosinophil Count 0.36 10^3/uL (0.0-0.7); Absolute Lymphocyte Count 1.54 10^3/uL (1.2-3.4); Absolute Monocyte Count 0.71 10^3/uL (0.1-0.8); Absolute Neutrophil Count 4.63 10^3/uL (1.2-6.7); Basophils % 1.2; Eosinophils % 4.9; HCT 40.3 % (40.0-50.0); HGB 13.5 g/dL (13.5-17.5); Immature Grans % 0.3; MCH 31.2 pg (27.0-33.0); MCHC 33.5 % (32.0-36.0); MCV 93 fL (80-95); MPV 10.7 fL (8.0-11.0); Monocytes % 9.7; Neutrophils % 62.9; Platelet Count 253 10^3/uL (130-400); RBC 4.33 10^6/uL (4.36-5.78); RDW 13.1 % (11.8-14.1); RDW-SD 44.6 fL; WBC 7.35 10^3/uL (4.4-10.8)
[2022-10-07 12:25] LABS: ESR < 1 mm/hr (0-20)
[2022-10-07 12:38] LABS: ALT 26 U/L (16-63); AST 17 U/L (15-37); Albumin 4.1 g/dL (3.4-5.0); Alkaline Phosphatase 51 U/L (46-116); Anion Gap 10.8 mmol/L (3-11); BUN 20 mg/dL (7-18); Bilirubin, Total 0.9 mg/dL (0.2-1.0); CO2 26.2 mmol/L (21.0-32.0); CREATININE 1.1 mg/dL (0.70-1.30); Calcium 9.5 mg/dL (8.5-10.1); Chloride 104 mmol/L (98-107); Estimated GFR 68.29 (mL/min/1.73m2); Glucose 139 mg/dL (74-106); Potassium 3.8 mmol/L (3.5-5.1); Sodium 141 mmol/L (136-145); Total Protein 7.1 g/dL (6.4-8.2)
== END 2022-10-07 03:22 | disposition home or self-care (01) ==
LOC: LOS 03:21
PROVIDERS: PCP Nurse Practitioner Family; Visit Provider Internal Medicine Rheumatology
DX: L40.50 Arthropathic psoriasis, unspecified (principal); Z79.899 Other long term (current) drug therapy
CPT/HCPCS: 36415; 80053; 85652; 85025; 86140

== ENCOUNTER 2022-10-09 11:02 | Outpatient (RCR) | payer SELFPAY ==
[2022-09-09 00:10] VITALS: BP 132/67; PULSE 39
[2022-09-09 10:45] VITALS: BP 132/70; PULSE 40
[2022-09-11 11:22] VITALS: BP 140/62; PULSE 48
[2022-09-18 11:27] VITALS: BP 138/80; PULSE 34
[2022-09-23 12:01] VITALS: BP 136/73; PULSE 42
[2022-09-25 10:57] VITALS: BP 132/72; PULSE 40
[2022-09-30 10:51] VITALS: BP 142/72; PULSE 53
[2022-10-02 11:15] VITALS: BP 116/67; PULSE 42
[2022-10-07 11:05] VITALS: BP 150/70; PULSE 62
[2022-10-09 11:08] VITALS: BP 126/64; PULSE 43
== END 2022-10-09 23:59 | disposition home or self-care (01) ==
LOC: CR 11:02
PROVIDERS: PCP Nurse Practitioner Family; Visit Provider Internal Medicine Cardiovascular Disease
DX: R69 Illness, unspecified (principal)

== ENCOUNTER → 2022-10-28 09:13 | Outpatient (BNVA) | payer MEDICARE, SELFPAY | PROVIDERS: PCP Nurse Practitioner Family; Visit Provider Internal Medicine Cardiovascular Disease | DX: I25.2 Old myocardial infarction (principal); I25.10 Atherosclerotic heart disease of native coronary artery without angina pectoris; I49.3 Ventricular premature depolarization; I10 Essential (primary) hypertension | CPT/HCPCS: 99213 ==

== ENCOUNTER 2022-11-06 10:55 | Outpatient (RCR) | payer SELFPAY ==
[2022-10-10 00:18] VITALS: BP 126/64; PULSE 43
[2022-10-14 11:14] VITALS: BP 112/82; PULSE 60
[2022-10-16 11:05] VITALS: BP 132/60; PULSE 45
[2022-10-21 10:50] VITALS: BP 152/74; PULSE 52
[2022-10-28 10:52] VITALS: BP 139/73; PULSE 73
[2022-10-28 11:10] VITALS: BP 139/73; PULSE 38
[2022-10-30 11:24] VITALS: BP 151/80; PULSE 54
[2022-11-04 10:55] VITALS: BP 148/60; PULSE 40
[2022-11-06 10:55] VITALS: BP 140/70; PULSE 42
== END 2022-11-08 23:59 | disposition home or self-care (01) ==
LOC: CR 10:55
PROVIDERS: PCP Nurse Practitioner Family; Visit Provider Internal Medicine Cardiovascular Disease
DX: R69 Illness, unspecified (principal)

== ENCOUNTER 2022-12-09 11:06 | Outpatient (RCR) | payer SELFPAY ==
[2022-11-09 00:06] VITALS: BP 140/70; PULSE 42
[2022-11-11 10:45] VITALS: PULSE 46
[2022-11-13 12:57] VITALS: BP 121/80; PULSE 43
[2022-11-20 11:06] VITALS: BP 162/68; PULSE 49
[2022-11-27 14:53] VITALS: BP 128/88; PULSE 49
[2022-12-02 11:20] VITALS: BP 123/84; PULSE 50
[2022-12-04 11:04] VITALS: BP 160/54; PULSE 35
[2022-12-09 13:09] VITALS: BP 148/75; PULSE 56
== END 2022-12-09 23:59 | disposition home or self-care (01) ==
LOC: CR 11:06
PROVIDERS: PCP Nurse Practitioner Family; Visit Provider Internal Medicine Cardiovascular Disease
DX: R69 Illness, unspecified (principal)

== ENCOUNTER 2023-01-08 10:55 | Outpatient (RCR) | payer SELFPAY ==
[2022-12-10 00:05] VITALS: BP 140/70; PULSE 42
[2022-12-11 11:02] VITALS: BP 119/74; PULSE 34
[2022-12-16 10:40] VITALS: BP 152/63
[2022-12-30 11:30] VITALS: BP 130/57; PULSE 44
[2023-01-06 11:03] VITALS: BP 139/69; PULSE 40
[2023-01-08 10:57] VITALS: BP 152/80; PULSE 40
== END 2023-01-08 23:59 | disposition home or self-care (01) ==
LOC: CR 10:55
PROVIDERS: PCP Nurse Practitioner Family; Visit Provider Internal Medicine Cardiovascular Disease
DX: R69 Illness, unspecified (principal)

== ENCOUNTER 2023-02-05 10:48 | Outpatient (RCR) | payer SELFPAY ==
[2023-01-09 00:04] VITALS: BP 140/70; PULSE 42
[2023-01-15 11:31] VITALS: BP 138/72; PULSE 51
[2023-01-22 11:32] VITALS: BP 100/62; PULSE 34
[2023-01-27 11:00] VITALS: BP 110/74; PULSE 39
[2023-01-29 11:00] VITALS: PULSE 33
[2023-02-03 14:57] VITALS: BP 142/70; PULSE 43
== END 2023-02-08 23:59 | disposition home or self-care (01) ==
LOC: CR 10:48
PROVIDERS: PCP Nurse Practitioner Family; Visit Provider Internal Medicine Cardiovascular Disease
DX: R69 Illness, unspecified (principal)

== ENCOUNTER 2023-03-10 11:05 | Outpatient (RCR) | payer SELFPAY ==
[2023-02-09 00:16] VITALS: BP 140/70; PULSE 42
[2023-02-10 11:08] VITALS: BP 122/56; PULSE 53
[2023-02-12 11:15] VITALS: BP 136/64; PULSE 56
[2023-02-17 11:48] VITALS: BP 112/56; PULSE 60
[2023-02-19 11:26] VITALS: BP 151/76; PULSE 61
[2023-02-24 10:54] VITALS: BP 138/72; PULSE 59
[2023-02-26 11:07] VITALS: BP 130/76; PULSE 47
[2023-03-10 11:14] VITALS: BP 147/55; PULSE 39
== END 2023-03-11 23:59 | disposition home or self-care (01) ==
LOC: CR 11:05
PROVIDERS: PCP Nurse Practitioner Family; Visit Provider Internal Medicine Interventional Cardiology
DX: R69 Illness, unspecified (principal)

== ENCOUNTER 2023-04-07 11:45 | Outpatient (RCR) | payer SELFPAY ==
[2023-03-12 00:22] VITALS: BP 140/70; PULSE 42
[2023-03-12 10:52] VITALS: BP 126/78; PULSE 42
[2023-03-17 11:07] VITALS: BP 132/72; PULSE 52
[2023-03-19 13:29] VITALS: BP 120/55; PULSE 36
[2023-03-24 11:40] VITALS: BP 146/68; PULSE 50
[2023-03-26 10:52] VITALS: BP 130/78; PULSE 58; O2SAT 95
[2023-03-31 13:08] VITALS: BP 148/63; PULSE 35
[2023-04-07 13:15] VITALS: BP 153/53; PULSE 48
== END 2023-04-09 23:59 | disposition home or self-care (01) ==
LOC: CR 11:45
PROVIDERS: PCP Nurse Practitioner Family; Visit Provider Internal Medicine Cardiovascular Disease
DX: R69 Illness, unspecified (principal)

== ENCOUNTER 2023-04-16 03:47 | Outpatient (CLI) | payer MEDICARE, SELFPAY ==
[2023-04-16 12:16] LABS: Abs Immature Grans 0.01 10^3/uL (0.0-0.06); Absolute Basophil Count 0.06 10^3/uL (0.0-0.2); Absolute Eosinophil Count 0.15 10^3/uL (0.0-0.7); Absolute Lymphocyte Count 0.88 10^3/uL (1.2-3.4); Absolute Monocyte Count 0.44 10^3/uL (0.1-0.8); Absolute Neutrophil Count 4.68 10^3/uL (1.2-6.7); Eosinophils % 2.4; HCT 40.1 % (40.0-50.0); HGB 13.3 g/dL (13.5-17.5); Immature Grans % 0.2; Lymphocytes % 14.1; MCHC 33.2 % (32.0-36.0); MCV 94 fL (80-95); MPV 10.2 fL (8.0-11.0); Monocytes % 7.1; Neutrophils % 75.2; Platelet Count 219 10^3/uL (130-400); RBC 4.29 10^6/uL (4.36-5.78); RDW 12.9 % (11.8-14.1); RDW-SD 44.2 fL; WBC 6.22 10^3/uL (4.4-10.8)
[2023-04-16 12:29] LABS: ESR < 1 mm/hr (0-20)
[2023-04-16 12:35] LABS: Hemoglobin A1C 5.9 % (<5.7)
[2023-04-16 13:09] LABS: ALT 30 U/L (16-63); AST 21 U/L (15-37); Albumin 4.1 g/dL (3.4-5.0); Alkaline Phosphatase 50 U/L (46-116); Anion Gap 9.8 mmol/L (3-11); BUN 15 mg/dL (7-18); C-Reactive Protein < 0.50 mg/dL (<or=0.5); CO2 26.2 mmol/L (21.0-32.0); CREATININE 1.1 mg/dL (0.70-1.30); Calcium 9.3 mg/dL (8.5-10.1); Chloride 106 mmol/L (98-107); Estimated GFR 67.86 (mL/min/1.73m2); Glucose 94 mg/dL (74-106); Potassium 4.1 mmol/L (3.5-5.1); Sodium 142 mmol/L (136-145); Total Protein 7.1 g/dL (6.4-8.2)
[2023-04-16 14:32] LABS: Lab Add On Test DONE
[2023-04-16 15:13] LABS: Ferritin 224 ng/mL (26-388); Folate > 20.0 ng/mL (8.6-20.0); Vitamin B12 358 pg/mL (193-986)
[2023-04-17 09:45] LABS: Hepatitis C Ab w Rflx HCV PCR Negative (Negative)
== END 2023-04-16 03:48 | disposition home or self-care (01) ==
LOC: LBO 03:48
PROVIDERS: PCP Nurse Practitioner Family; Visit Provider Nurse Practitioner Family
DX: Z00.00 Encounter for general adult medical examination without abnormal findings (principal); R73.03 Prediabetes; L40.50 Arthropathic psoriasis, unspecified; G62.9 Polyneuropathy, unspecified
CPT/HCPCS: 36415; 80053; 85652; 86803; 82607; 82728; 82746; 83036; 85025; 86140

== ENCOUNTER 2023-04-28 10:56 | Outpatient (RCR) | payer SELFPAY ==
[2023-04-10 00:08] VITALS: BP 140/70; PULSE 42
[2023-04-16 10:46] VITALS: BP 146/78; PULSE 63
[2023-04-21 11:04] VITALS: BP 135/63; PULSE 49
[2023-04-23 11:23] VITALS: BP 124/60; PULSE 55
[2023-04-28 11:05] VITALS: BP 136/80; PULSE 51
== END 2023-05-10 23:59 | disposition home or self-care (01) ==
LOC: CR 10:56
PROVIDERS: PCP Nurse Practitioner Family; Visit Provider Internal Medicine Cardiovascular Disease
DX: R69 Illness, unspecified (principal)

== ENCOUNTER 2023-06-09 10:46 | Outpatient (RCR) | payer SELFPAY ==
[2023-05-12 11:30] VITALS: BP 152/64; PULSE 54
[2023-05-21 11:05] VITALS: BP 140/58; PULSE 47
[2023-05-26 11:17] VITALS: BP 164/62; PULSE 57
[2023-05-28 11:01] VITALS: BP 140/60; PULSE 47
[2023-06-02 11:03] VITALS: PULSE 46
[2023-06-04 10:47] VITALS: BP 152/72; PULSE 56
[2023-06-09 11:25] VITALS: BP 152/78; PULSE 47
== END 2023-06-09 23:59 | disposition home or self-care (01) ==
LOC: CR 10:46
PROVIDERS: PCP Nurse Practitioner Family; Visit Provider Internal Medicine Cardiovascular Disease
DX: R69 Illness, unspecified (principal)

== ENCOUNTER 2023-07-07 11:16 | Outpatient (RCR) | payer SELFPAY ==
[2023-06-10 00:13] VITALS: BP 152/78; PULSE 47
[2023-06-16 11:34] VITALS: BP 126/58; PULSE 67
[2023-06-25 11:38] VITALS: BP 138/66; PULSE 41
[2023-06-30 11:21] VITALS: PULSE 39
[2023-07-07 11:21] VITALS: BP 108/70; PULSE 59
== END 2023-07-10 23:59 | disposition home or self-care (01) ==
LOC: CR 11:16
PROVIDERS: PCP Nurse Practitioner Family; Visit Provider Internal Medicine Cardiovascular Disease
DX: R69 Illness, unspecified (principal)

== ENCOUNTER 2023-07-28 07:36 | Outpatient (CLI) | payer MEDICARE, SELFPAY ==
--- NOTE | 2023-07-28 07:30 | RT.EKG_ITS ---
APPROVED REPORT Exam: Resting ECG Reason for Exam: cardiac evaluation Patient Location: O HR:96 bpm ECG Measurements Heart Rate 96 AXIS WA [id number] P [id number] QRSd 159 QRS -60 QT 426 T 72 QTc 539 Conclusion Sinus rhythm with PVCs couplets and nonsustained ventricular tachycardia RBBB and LAFB...QRSd >120mS, axis(-40,240)
== END 2023-07-28 07:37 | disposition home or self-care (01) ==
LOC: DI.CARD 07:37
PROVIDERS: PCP Nurse Practitioner Family; Visit Provider Internal Medicine Cardiovascular Disease
DX: I25.10 Atherosclerotic heart disease of native coronary artery without angina pectoris (principal)
CPT/HCPCS: 93010

== ENCOUNTER → 2023-07-28 08:43 | Outpatient (BNVA) | payer MEDICARE, SELFPAY | PROVIDERS: PCP Nurse Practitioner Family; Referring Provider Nurse Practitioner Family; Visit Provider Internal Medicine Cardiovascular Disease | DX: I47.29 Other ventricular tachycardia (principal); I25.10 Atherosclerotic heart disease of native coronary artery without angina pectoris | CPT/HCPCS: 93005; 99213 ==

== ENCOUNTER 2023-08-06 11:00 | Outpatient (RCR) | payer SELFPAY ==
[2023-07-11 00:07] VITALS: BP 152/78; PULSE 47
[2023-07-14 10:54] VITALS: BP 130/50; PULSE 37
[2023-07-16 14:20] VITALS: BP 134/58; PULSE 36
[2023-07-23 12:21] VITALS: BP 131/63; PULSE 53
[2023-07-28 13:13] VITALS: BP 118/59
[2023-07-30 11:22] VITALS: BP 172/68; PULSE 39
[2023-08-06 13:25] VITALS: BP 136/50; PULSE 52
== END 2023-08-09 23:59 | disposition home or self-care (01) ==
LOC: CR 11:00
PROVIDERS: PCP Nurse Practitioner Family; Visit Provider Internal Medicine Cardiovascular Disease
DX: R69 Illness, unspecified (principal)

== ENCOUNTER 2023-08-27 11:41 | Outpatient (RCR) | payer SELFPAY ==
[2023-08-11 11:21] VITALS: BP 154/62; PULSE 43
[2023-08-18 11:27] VITALS: BP 136/66; PULSE 43
[2023-08-25 11:23] VITALS: BP 125/53; PULSE 33
[2023-08-27 13:34] VITALS: BP 141/65; PULSE 50
== END 2023-09-09 23:59 | disposition home or self-care (01) ==
LOC: CR 11:41
PROVIDERS: PCP Nurse Practitioner Family; Visit Provider Internal Medicine Cardiovascular Disease
DX: R69 Illness, unspecified (principal)

== ENCOUNTER 2023-09-28 04:19 | Outpatient (CLI) | payer MEDICARE, SELFPAY ==
[2023-09-28 16:31] LABS: Abs Immature Grans 0.02 10^3/uL (0.0-0.06); Absolute Basophil Count 0.06 10^3/uL (0.0-0.2); Absolute Eosinophil Count 0.13 10^3/uL (0.0-0.7); Absolute Lymphocyte Count 1.01 10^3/uL (1.2-3.4); Absolute Monocyte Count 0.62 10^3/uL (0.1-0.8); Absolute Neutrophil Count 3.99 10^3/uL (1.2-6.7); Eosinophils % 2.2 %; HCT 40.4 % (40.0-50.0); HGB 13.3 g/dL (13.5-17.5); Immature Grans % 0.3 %; Lymphocytes % 17.3 %; MCH 31.3 pg (27.0-33.0); MCHC 32.9 % (32.0-36.0); MCV 95 fL (80-95); MPV 10.6 fL (8.0-11.0); Monocytes % 10.6 %; Neutrophils % 68.6 %; Platelet Count 222 10^3/uL (130-400); RBC 4.25 10^6/uL (4.36-5.78); WBC 5.83 10^3/uL (4.4-10.8)
[2023-09-28 16:54] LABS: ESR < 1 mm/hr (0-20)
[2023-09-28 17:54] LABS: ALT 27 U/L (16-63); AST 20 U/L (15-37); Albumin 4.2 g/dL (3.4-5.0); Alkaline Phosphatase 55 U/L (46-116); BUN 12 mg/dL (7-18); Bilirubin, Total 0.77 mg/dL (0.2-1.0); CREATININE 1.2 mg/dL (0.70-1.30); Calcium 9.5 mg/dL (8.5-10.1); Chloride 106 mmol/L (98-107); Estimated GFR 61.13 (mL/min/1.73m2); Glucose 99 mg/dL (74-106); Potassium 4.1 mmol/L (3.5-5.1); Sodium 143 mmol/L (136-145); Total Protein 6.9 g/dL (6.4-8.2); Uric Acid 6.6 mg/dL (3.5-7.2)
[2023-09-28 17:55] LABS: C-Reactive Protein < 0.50 mg/dL (<or=0.5)
== END 2023-09-28 04:20 | disposition home or self-care (01) ==
PROVIDERS: PCP Nurse Practitioner Family; Visit Provider Internal Medicine Rheumatology
DX: Z79.899 Other long term (current) drug therapy (principal)
CPT/HCPCS: 36415; 80053; 85652; 84550; 85025; 86140

== ENCOUNTER 2023-10-01 02:23 | Outpatient (CLI) | payer MEDICARE, SELFPAY ==
--- NOTE | 2023-10-01 | DI.DEXA_ITS ---
Exam(s) XR DEXA BONE DENSITY W/WO RENNY EXAM: XR DEXA BONE DENSITY W/WO RENNY CLINICAL HISTORY: PSORIATIC ARTHRITIS, L40.50, HIGH RISK MEDI USE Z79.899, STEROID USE Z79.52 TECHNIQUE: COMPARISON: No exams were available for comparison FINDINGS: Lateral Spine Image: There is anterior wedging of the T10 and T11 vertebral bodies. Left hip: Total T-Score: -1.4 Total Z-Score: -0.3 T- and Z-scores: Findings are consistent with osteopenia. Lumbar Spine: Total T-Score: -0.7 Total Z-Score: 0.5 T- and Z-scores: No evidence of osteoporosis. IMPRESSION: No evidence of osteoporosis.
== END 2023-10-01 02:43 ==
LOC: DI 02:24
PROVIDERS: PCP Nurse Practitioner Family; Visit Provider Internal Medicine Rheumatology
DX: L40.50 Arthropathic psoriasis, unspecified; Z79.52 Long term (current) use of systemic steroids; Z79.899 Other long term (current) drug therapy
CPT/HCPCS: 77080

== ENCOUNTER 2023-10-06 11:10 | Outpatient (RCR) | payer SELFPAY ==
[2023-09-10 00:33] VITALS: BP 141/65; PULSE 50
[2023-09-17 11:42] VITALS: BP 133/54; PULSE 44
[2023-09-24 11:44] VITALS: BP 142/75; PULSE 44
[2023-10-06 11:22] VITALS: BP 116/60; PULSE 47
== END 2023-10-10 23:59 | disposition home or self-care (01) ==
LOC: CR 11:10
PROVIDERS: PCP Nurse Practitioner Family; Visit Provider Internal Medicine Cardiovascular Disease
DX: R69 Illness, unspecified (principal)

== ENCOUNTER 2023-11-05 11:30 | Outpatient (RCR) | payer SELFPAY ==
[2023-10-11 00:12] VITALS: BP 141/65; PULSE 50
[2023-10-15 11:42] VITALS: BP 151/64; PULSE 42
[2023-10-20 11:48] VITALS: BP 134/60; PULSE 40
[2023-10-22 13:19] VITALS: BP 152/59; PULSE 45
[2023-10-29 10:55] VITALS: BP 114/60; PULSE 50
[2023-10-29 13:31] VITALS: BP 114/60; PULSE 50
[2023-11-05 11:32] VITALS: BP 133/59; PULSE 45
== END 2023-11-09 23:59 | disposition home or self-care (01) ==
LOC: CR 11:30
PROVIDERS: PCP Nurse Practitioner Family; Visit Provider Internal Medicine Cardiovascular Disease
DX: R69 Illness, unspecified (principal)

== ENCOUNTER 2023-11-20 08:57 | Outpatient (CLI) | payer MEDICARE, SELFPAY ==
--- NOTE | 2023-11-20 14:52 | DI.RAD_ITS ---
Exam(s) XR HIP LT COMPLETE AP PELVIS EXAM: XR HIP LT COMPLETE AP PELVIS CLINICAL HISTORY: left leg pain, LT BACK PAIN, M79.605. TECHNIQUE: 2D digital imaging was performed. CR XR STANDING ALIGNMENT from 05/06/2019 FINDINGS: 3 views No evidence of pelvic nor hip fracture. For, there is a sclerotic bone lesion in the intertrochanter ic region of the left hip measuring approximately 2.5 x 2.0 cm. This, however, is unchanged from lisa ges of 05/06/2019 and therefore probably benign. No other sclerotic nor lytic bone lesions identifie d. IMPRESSION: As above but without change from 05/06/2019. DATA REPOSITORY: RADIATION DOSE DELIVERED:
--- NOTE | 2023-11-20 14:52 | DI.RAD_ITS ---
Exam(s) XR LUMBAR SPINE COMPLETE EXAM: XR LUMBAR SPINE COMPLETE CLINICAL HISTORY: left back pain, LT LEG PAIN, M79.605. TECHNIQUE: 2D digital imaging was performed. COMPARISON: CR XR DEXA BONE DENSITY W/WO RENNY from 10/01/2023 FINDINGS: Five views There is mild wedge fracture of T11, age indeterminate. However, this appears unchanged from lateral image of a bone density study performed 10/01/2023. There is also chronic degenerative disc disease at this level (T10-11). Below this level there is advanced disc space narrowing and anterolisthesis of L4 upon L5 due to face t arthropathy. Lesser disc space narrowing at L3-4. No osseous lesions. Sacroiliac joints appear unremarkable. IMPRESSION: Degenerative changes and chronic degenerative disc disease. Degenerative anterolisthesis L4 upon L5. Other findings as above. DATA REPOSITORY: RADIATION DOSE DELIVERED:
--- NOTE | 2023-11-20 14:52 | DI.RAD_ITS ---
Exam(s) XR THORACIC SPINE COMPLETE EXAM: XR THORACIC SPINE COMPLETE CLINICAL HISTORY: left back pain, LT LEG PAIN, M79.605. TECHNIQUE: 2D digital imaging was performed. COMPARISON: No exams were available for comparison FINDINGS: 3 views Age-related osteopenia and degenerative changes. No obvious acute compression fractures. Minimal sc oliosis noted. Incidentally noted is calcification in the carotid arteries on both sides the neck. IMPRESSION: Degenerative changes. No obvious acute thoracic vertebral fractures. DATA REPOSITORY: RADIATION DOSE DELIVERED:
== END 2023-11-20 09:17 ==
LOC: DI 08:59
PROVIDERS: PCP Nurse Practitioner Family; Visit Provider Physician Assistant
DX: M79.605 Pain in left leg (principal)
CPT/HCPCS: 72072; 72110; 73502

== ENCOUNTER 2023-12-01 11:39 | Outpatient (RCR) | payer SELFPAY ==
[2023-11-10 13:50] VITALS: BP 118/56; PULSE 39
== END 2023-12-10 23:59 | disposition home or self-care (01) ==
LOC: CR 11:39
PROVIDERS: PCP Nurse Practitioner Family; Visit Provider Internal Medicine Cardiovascular Disease
DX: R69 Illness, unspecified (principal)

== ENCOUNTER 2024-01-04 01:13 | Outpatient (CLI) | payer MEDICARE, SELFPAY ==
--- NOTE | 2024-01-04 | DI.MRI_ITS ---
Exam(s) MR LUMBAR SPINE WO EXAM: MR LUMBAR SPINE WO CLINICAL HISTORY: SPONDYLOLISTHESIS LUMBAR REGION, M43.16, LT HIP PAIN, M25.552, SPONDYLOSIS. TECHNIQUE: Multiplanar multisequence MRI of the Lumbar spine was performed. COMPARISON: CR XR LUMBAR SPINE COMPLETE from 11/20/2023 FINDINGS: Bones: The last intervertebral disc space is designated the L5/S1 level for the numbering purpose of this examination. The vertebral body heights are well maintained. Alignment is satisfactory. There are endplate degenerative signal changes in the lumbar spine particularly at L3-4 and L4-L5. There i s grade 1 anterolisthesis of L4 on L5. No spondylolysis is seen. Cord: The conus tip ends at the T12 level. It is of normal size and signal intensity. T12-L1: No disc herniations or bulges are present. No central spinal canal or neural foraminal stenos is. L1-2: Mild diffuse disc bulge is present. There is extension into the neural foramen. There is jan ed right neural foraminal stenosis and moderate left neural foraminal stenosis. No significant centr al spinal canal stenosis is seen. No central spinal canal or neural foraminal stenosis. L2-3: No disc herniations or bulges are present. There are degenerative changes of the facets and hyp ertrophy of the ligamentum flavum.No significant central spinal canal stenosis is seen. There is mod erately severe right and cgen-iv-kcggoniy left neural foraminal stenosis. L3-4: There is a mild diffuse disc bulge. There are degenerative changes of the facets with hypertro phy of the ligamentum flavum. These all contribute to cause moderately severe central spinal canal s tenosis. There is moderate bilateral neural foraminal stenosis. L4-5: There is a mild diffuse disc bulge. There are degenerative changes of the facets present. The re is wpfu-yw-tuxfcove narrowing of the central spinal canal.Mild bilateral neural foraminal stenosis is seen, right greater than left. L5-S1: No disc herniations or bulges are present. No central spinal canal or neural foraminal stenosi s. Soft tissues: The visualized SI joints and sacrum are well maintained. The paraspinal soft tissues ar e unremarkable. Visualized abdominal organs: There are simple renal cysts. No follow-up is recommended. IMPRESSION: 1. Multilevel degenerative changes in the lumbar spine as described above. 2. At L3-L4 there is moderately severe central spinal canal stenosis and moderate bilateral neural fo raminal stenosis. 3. At L1-L2 there is marked right neural foraminal stenosis and moderate left neural foraminal stenos is. DATA REPOSITORY:
== END 2024-01-04 01:33 ==
LOC: DI 01:13
PROVIDERS: PCP Nurse Practitioner Family; Visit Provider Nurse Practitioner Family
DX: M43.16 Spondylolisthesis, lumbar region (principal)
CPT/HCPCS: 72148

== ENCOUNTER → 2024-01-11 08:37 | Outpatient (BNVA) | payer MEDICARE, SELFPAY | PROVIDERS: PCP Nurse Practitioner Family; Referring Provider Nurse Practitioner Family; Visit Provider Student in an Organized Health Care Education/Training Program | DX: M70.62 Trochanteric bursitis, left hip (principal); M48.061 Spinal stenosis, lumbar region without neurogenic claudication | CPT/HCPCS: 20610; J1010 ==

== ENCOUNTER → 2024-02-02 09:53 | Outpatient (BNVA) | payer MEDICARE, SELFPAY | PROVIDERS: PCP Nurse Practitioner Family; Referring Provider Nurse Practitioner Family; Visit Provider Internal Medicine Cardiovascular Disease | DX: I25.2 Old myocardial infarction (principal); I25.10 Atherosclerotic heart disease of native coronary artery without angina pectoris; I49.3 Ventricular premature depolarization | CPT/HCPCS: 99213 ==

== ENCOUNTER 2024-03-10 11:04 | Outpatient (RCR) | payer SELFPAY ==
[2023-12-11 00:35] VITALS: BP 118/56; PULSE 39
[2024-02-16 11:26] VITALS: BP 132/60; PULSE 48
[2024-02-23 11:03] VITALS: BP 138/76; PULSE 40
[2024-03-01 11:08] VITALS: BP 154/53; PULSE 40
[2024-03-10 11:06] VITALS: BP 130/73; PULSE 39; O2SAT 98
== END 2024-03-11 23:59 | disposition home or self-care (01) ==
LOC: CR 11:04
PROVIDERS: PCP Nurse Practitioner Family; Visit Provider Internal Medicine Cardiovascular Disease
DX: R69 Illness, unspecified (principal)

== ENCOUNTER → 2024-03-14 10:38 | Outpatient (BNVA) | payer MEDICARE, SELFPAY | PROVIDERS: PCP Nurse Practitioner Family; Referring Provider Nurse Practitioner Family; Visit Provider Student in an Organized Health Care Education/Training Program | DX: M70.62 Trochanteric bursitis, left hip (principal) | CPT/HCPCS: 99213 ==

== ENCOUNTER 2024-03-24 13:18 | Outpatient (CLI) | payer MEDICARE, SELFPAY ==
[2024-03-24 13:31] VITALS: BP 128/52; PULSE 44; RESP 18; TEMP 36.6; O2SAT 97
[2024-03-24 14:17] VITALS: BP 137/88; PULSE 64; RESP 12; O2SAT 97
[2024-03-24] MEDS: Nerve Block Tray 1 EACH MC (14:18)
[2024-03-24] MEDS: Omnipaque 240 MG/ML 50 ML BTL IJ (14:18)
[2024-03-24] MEDS: methylPREDNISolone ACETATE 80 MG/ML VIAL IJ (14:19)
--- NOTE | 2024-03-24 15:50 | PDOC.PAIN_ITS ---
Date of service: 03/24/24 Time of Service: 14:00 Pain Managment Procedure Note Procedure Note Procedure Note: PROCEDURE NOTE LEFT INTRA-ARTICULAR SACROILIAC JOINT INJECTION Date of Service: March 24, 2024 Patient: Bayron Neil Provider: Erlin Hilliard DO, MPH COMMENTS: I previously evaluated the patient in the office and their symptoms in relation to the sacroiliac joint pain have remained the same. Pre-operative diagnosis: Sacroiliac joint dysfunction ICD-10 M53.3 Post-operative diagnosis: Same Pre-procedure pain: VAS= 6/10 Bayron Neil has been referred to our [facility] for a Left intra-articular Sacroiliac joint injection. Bayron was interviewed and the medical record reviewed. There were no medical, pharmacologic, radiographic or other structural contraindications to attempting a fluoroscopically-guided, contrast-enhanced, intra-articular Sacroiliac joint injection. The risks, benefits, and potential side effects of this procedure were reviewed with the patient. Questions and concerns were addressed. After it was clear that Bayron was fully informed about the procedure, the printed consent form was signed by the patient and myself. Bayron was placed in the prone position on the fluoroscopy table and an automated blood pressure cuff, 3 lead EKG, and pulse oximeter were applied. The skin entry point for approaching the Left sacroiliac joint was identified under the most advantageous fluoroscopic view and marked. Following thorough Chlorhexadine preparation of the skin and draping with sterile surgical drapes, 2 mls of 1% lidocaine was infiltrated into the skin at the entry point and the surrounding subcutaneous tissues. Next, a 3.5 22G spinal needle was placed under fluoro scopic guidance into the Left sacroiliac joint. Intra-articular placement was confirmed by a clear arthrogram resulting from the injection of 0.25ml of Omnipaque-240. Next, 1 ml of Depo- Medrol 80 mg/ml was injected intra- articularly with an initial reproduction of a significant component of the usual pain. This was followed with 1 ml of 1% Lidocaine. The needle was then removed without difficulty. (49 ml of Omnipaque-240 was wasted). Bayron's vital signs were stable throughout the procedure and were as recorded in nursing records. Follow up plans and appointments were discussed with Bayron. Post procedure instructions were given as documented in nursing records. Having met discharge criteria, Bayron was discharged from the [facility]. COMMENTS: Post-procedure pain: VAS= 0/10. If the patient receives at least 50% improvement in pain and/or function for at least 3 months, this procedure can be repeated if needed. I personally performed this entire procedure. ERLIN HILLIARD DO, MPH ABPMR-subspecialty board certification in Pain Medicine [facility] [facility]
--- NOTE | 2024-03-24 18:00 | DI.RAD_ITS ---
Exam(s) XR PAIN CLINIC SACRIOILIAC 2V EXAM: XR PAIN CLINIC SACRIOILIAC 2V CLINICAL HISTORY: DX: Sacroiliac Dysfunction. TECHNIQUE: Fluoroscopy was provided for the referring physician for guidance with performing pain cl inic injection procedure. COMPARISON: No exams were available for comparison FINDINGS: Please see procedure note for details. Fluoro time: 16.3 seconds RADIATION DOSE DELIVERED: Ka,r=7.25 mGy
== END 2024-03-24 13:19 | disposition home or self-care (01) ==
LOC: PC 13:19
PROVIDERS: PCP Nurse Practitioner Family; Visit Provider Preventive Medicine Occupational Medicine
DX: M53.3 Sacrococcygeal disorders, not elsewhere classified (principal)
CPT/HCPCS: 27096; 72200; J1010; Q9967

== ENCOUNTER 2024-03-31 01:15 | Outpatient (CLI) | payer MEDICARE, SELFPAY ==
[2024-03-31 12:21] LABS: ESR < 1 mm/hr (0-20)
[2024-03-31 12:25] LABS: Abs Immature Grans 0.01 10^3/uL (0.0-0.06); Absolute Basophil Count 0.08 10^3/uL (0.0-0.2); Absolute Eosinophil Count 0.14 10^3/uL (0.0-0.7); Absolute Lymphocyte Count 1.12 10^3/uL (1.2-3.4); Absolute Monocyte Count 0.46 10^3/uL (0.1-0.8); Absolute Neutrophil Count 3.72 10^3/uL (1.2-6.7); Basophils % 1.4 %; Eosinophils % 2.5 %; HGB 13.4 g/dL (13.5-17.5); Immature Grans % 0.2 %; Lymphocytes % 20.3 %; MCH 31.3 pg (27.0-33.0); MCHC 33.5 % (32.0-36.0); MCV 94 fL (80-95); MPV 10.5 fL (8.0-11.0); Monocytes % 8.3 %; Neutrophils % 67.3 %; Platelet Count 235 10^3/uL (130-400); RBC 4.28 10^6/uL (4.36-5.78); RDW 12.8 % (11.8-14.1); RDW-SD 43.7 fL; WBC 5.53 10^3/uL (4.4-10.8)
[2024-03-31 13:57] LABS: ALT 28 U/L (16-63); AST 19 U/L (15-37); Albumin 4.2 g/dL (3.4-5.0); Alkaline Phosphatase 61 U/L (46-116); Anion Gap 4.4 mmol/L (3-11); BUN 18 mg/dL (7-18); Bilirubin, Total 1.08 mg/dL (0.2-1.0); CO2 30.6 mmol/L (21.0-32.0); CREATININE 1.1 mg/dL (0.70-1.30); Calcium 9.7 mg/dL (8.5-10.1); Chloride 107 mmol/L (98-107); Estimated GFR 67.44 (mL/min/1.73m2); Glucose 121 mg/dL (74-106); Potassium 4.5 mmol/L (3.5-5.1); Sodium 142 mmol/L (136-145); Total Protein 7.1 g/dL (6.4-8.2); Uric Acid 6.5 mg/dL (3.5-7.2)
[2024-03-31 14:46] LABS: Hemoglobin A1C 5.8 % (<5.7)
[2024-03-31 15:29] LABS: C-Reactive Protein < 0.50 mg/dL (<or=0.5)
== END 2024-03-31 01:16 | disposition home or self-care (01) ==
PROVIDERS: Internal Medicine Rheumatology; PCP Nurse Practitioner Family; Visit Provider Nurse Practitioner Family
DX: L40.9 Psoriasis, unspecified; R73.03 Prediabetes; L40.50 Arthropathic psoriasis, unspecified
CPT/HCPCS: 36415; 80053; 85027; 85652; 83036; 84550; 85025; 86140

== ENCOUNTER 2024-04-07 11:01 | Outpatient (RCR) | payer SELFPAY ==
[2024-03-31 11:08] VITALS: BP 134/65; PULSE 39
[2024-04-07 11:05] VITALS: PULSE 44
== END 2024-04-08 23:59 | disposition home or self-care (01) ==
LOC: CR 11:01
PROVIDERS: PCP Nurse Practitioner Family; Visit Provider Internal Medicine Cardiovascular Disease

== ENCOUNTER 2024-05-05 10:47 | Outpatient (RCR) | payer SELFPAY ==
[2024-04-09 00:20] VITALS: BP 134/65; PULSE 44
[2024-04-19 11:19] VITALS: PULSE 46; O2SAT 98
[2024-04-21 10:51] VITALS: BP 139/95; PULSE 48
[2024-04-26 11:29] VITALS: BP 133/59; PULSE 53
[2024-04-28 11:20] VITALS: BP 138/65; PULSE 56
[2024-05-03 11:05] VITALS: BP 139/53; PULSE 46
[2024-05-05 11:06] VITALS: BP 145/61; PULSE 48; O2SAT 97
== END 2024-05-09 23:59 | disposition home or self-care (01) ==
LOC: CR 10:47
PROVIDERS: PCP Nurse Practitioner Family; Visit Provider Internal Medicine Cardiovascular Disease
DX: R69 Illness, unspecified (principal)

== ENCOUNTER 2024-06-07 11:05 | Outpatient (RCR) | payer SELFPAY ==
[2024-05-10 00:20] VITALS: BP 134/65; PULSE 44
[2024-05-19 11:00] VITALS: BP 163/61; PULSE 38; O2SAT 98
[2024-05-31 12:34] VITALS: BP 136/72; PULSE 38
== END 2024-06-08 23:59 | disposition home or self-care (01) ==
LOC: CR 11:05
PROVIDERS: PCP Nurse Practitioner Family; Visit Provider Internal Medicine Cardiovascular Disease
DX: R69 Illness, unspecified (principal)

== ENCOUNTER 2024-07-07 10:52 | Outpatient (RCR) | payer SELFPAY ==
[2024-06-09 00:21] VITALS: BP 134/65; PULSE 44
[2024-06-09 11:39] VITALS: BP 123/56; PULSE 57
[2024-06-14 11:41] VITALS: BP 144/62; PULSE 52
[2024-06-16 13:13] VITALS: BP 140/58; PULSE 53
[2024-06-21 13:22] VITALS: BP 152/61; PULSE 45
[2024-06-23 13:29] VITALS: BP 153/62; PULSE 41
[2024-06-28 13:09] VITALS: PULSE 41; O2SAT 96
[2024-06-30 11:20] VITALS: BP 139/60; PULSE 53
[2024-07-07 13:52] VITALS: BP 123/59; PULSE 50
== END 2024-07-09 23:59 | disposition home or self-care (01) ==
LOC: CR 10:52
PROVIDERS: PCP Nurse Practitioner Family; Visit Provider Internal Medicine Cardiovascular Disease
DX: R69 Illness, unspecified (principal)

== ENCOUNTER → 2024-08-02 10:36 | Outpatient (BNVA) | payer MEDICARE, SELFPAY | PROVIDERS: PCP Nurse Practitioner Family; Visit Provider Internal Medicine Cardiovascular Disease | DX: I49.3 Ventricular premature depolarization (principal); I25.10 Atherosclerotic heart disease of native coronary artery without angina pectoris | CPT/HCPCS: 99213 ==

== ENCOUNTER 2024-08-04 11:00 | Outpatient (RCR) | payer SELFPAY ==
[2024-07-10 00:23] VITALS: BP 134/65; PULSE 44
[2024-07-12 11:19] VITALS: BP 145/69; PULSE 53
[2024-07-19 14:28] VITALS: BP 138/67; PULSE 52
[2024-07-21 11:25] VITALS: BP 129/66; PULSE 45
[2024-07-26 11:27] VITALS: BP 170/76; PULSE 46
[2024-08-04 11:17] VITALS: BP 150/73; PULSE 41
== END 2024-08-08 23:59 | disposition home or self-care (01) ==
LOC: CR 11:00
PROVIDERS: PCP Nurse Practitioner Family; Visit Provider Internal Medicine Cardiovascular Disease
DX: R69 Illness, unspecified (principal)

== ENCOUNTER 2024-08-21 19:55 | Emergency (ER) | payer MEDICARE, SELFPAY ==
[2024-08-21 20:02] VITALS: BP 150/47; PULSE 40; RESP 18; TEMP 37.1; O2SAT 96
--- NOTE | 2024-08-21 20:14 | W.ED.GENAD ---
Discharge Plan Disposition Patient Disposition: Home Condition: Stable Discharge Details Clinical Impression: Contusion of hand, left Primary Care Provider: Lucy Edwards ED Provider: Charles Hanks Home Meds and New Rx's Prescriptions: Continued prednisone 1 mg tablet 1.5 mg PO DAILY acetaminophen 500 mg capsule 500 mg PO Q6H nitroglycerin 0.4 mg tablet, sublingual 0.4 mg sublingual Q5-15M PRN (Reason: chest pain) Qty: 15 3RF Patient Comments: prn Rx Instructions: 1 tablet every 5 minutes x 3 doses if needed for chest pain. Seek emergency services if not improving after first dose allopurinol 100 mg tablet 100 mg PO DAILY Qty: 90 3RF hydrochlorothiazide 12.5 mg tablet 12.5 mg PO DAILY Qty: 90 3RF methotrexate sodium 2.5 mg tablet 5 mg PO QWEEK calcipotriene 0.005 % cream 1 applic topical BID PRN (Reason: psoriasis) Qty: 120 4RF mupirocin 2 % ointment 1 applic topical BID PRN (Reason: rash) Qty: 22 0RF amlodipine [Norvasc] 5 mg tablet 5 mg PO QAM Qty: 90 3RF pantoprazole 40 mg tablet,delayed release (DR/EC) 40 mg PO DAILY Qty: 90 3RF rosuvastatin 20 mg tablet 20 mg PO HS Qty: 90 3RF diclofenac sodium 50 mg tablet,delayed release (DR/EC) 50 mg PO BID PRN (Reason: pain) Qty: 60 3RF aspirin 81 mg Tablet,Chewable 81 mg PO DAILY Discharge Instructions Additional Instructions: I suspect that you did hit the back your hand possibly during your shooting event which led to a hematoma and contusion. This should resolve over the course of a week or 2. You can keep the hand elevated when you are sitting to help with the swelling. If is not improving over the course of a week or 2 follow-up with your PCP. If you develop new symptoms such as severe pain or high fevers return to the emergency department for reevaluation HPI General Mode of arrival: ambulatory. Date/Time Provider Initiated Documentation: 08/21/24 19:57. Limitations to Documentation: no limitations. Information obtained by: patient. History of Present Illness 83 year old M presents to the emergency department with the chief complaint of left hand discoloration, described as mild, Patient started experiencing this day(s) (1) and it has been constant. No relieving factors improve symptom(s), No exacerbating factors reported . Patient notes no other symptoms.. Patient did receive the following treatments prior to arrival, none Related Data Home Medications ?Medication ?Instructions ?Recorded ?Confirmed aspirin 81 mg chewable tablet 81 mg PO DAILY 10/13/19 08/21/24 mupirocin 2 % topical ointment 1 applic topical BID PRN rash #22 03/12/23 08/21/24 grams acetaminophen 500 mg capsule 500 mg PO Q6H 04/02/23 08/21/24 nitroglycerin 0.4 mg sublingual 0.4 mg sublingual Q5-15M PRN chest 04/02/23 08/21/24 tablet pain #15 tabs amlodipine 5 mg tablet (Norvasc) 5 mg PO QAM #90 tabs 11/04/23 08/21/24 calcipotriene 0.005 % topical cream 1 applic topical BID PRN psoriasis 12/03/23 08/21/24 #120 grams pantoprazole 40 mg tablet,delayed 40 mg PO DAILY #90 tabs 12/28/23 08/21/24 release prednisone 1 mg tablet 1.5 mg PO DAILY 02/02/24 08/21/24 rosuvastatin 20 mg tablet 20 mg PO HS #90 tabs 02/15/24 08/21/24 allopurinol 100 mg tablet 100 mg PO DAILY #90 tabs 04/06/24 08/21/24 hydrochlorothiazide 12.5 mg tablet 12.5 mg PO DAILY #90 tabs 04/06/24 08/21/24 methotrexate sodium 2.5 mg tablet 5 mg PO QWEEK 04/06/24 08/21/24 diclofenac sodium 50 mg 50 mg PO BID PRN pain #60 tabs 08/17/24 08/21/24 tablet,delayed release Previous Rx's ?Medication ?Instructions ?Recorded mupirocin 2 % topical ointment 1 applic topical BID PRN rash #22 03/12/23 grams nitroglycerin 0.4 mg sublingual 0.4 mg sublingual Q5-15M PRN chest 04/02/23 tablet pain #15 tabs amlodipine 5 mg tablet (Norvasc) 5 mg PO QAM #90 tabs 11/04/23 calcipotriene 0.005 % topical cream 1 applic topical BID PRN psoriasis 12/03/23 #120 grams pantoprazole 40 mg tablet,delayed 40 mg PO DAILY #90 tabs 12/28/23 release rosuvastatin 20 mg tablet 20 mg PO HS #90 tabs 02/15/24 allopurinol 100 mg tablet 100 mg PO DAILY #90 tabs 04/06/24 hydrochlorothiazide 12.5 mg tablet 12.5 mg PO DAILY #90 tabs 04/06/24 diclofenac sodium 50 mg 50 mg PO BID PRN pain #60 tabs 08/17/24 tablet,delayed release Allergies Allergy/AdvReac Type Severity Reaction Status Date / Time No Known Allergies Allergy Verified 08/21/24 20:06 General Stated Complaint: Orthopedic MAYA: 3 Review of Systems All systems reviewed & are unremarkable except as noted in HPI and below Constitutional Constitutional: Denies chills, Denies fever(s) and Denies weakness Cardiovascular Cardiovascular: Denies chest pain and Denies dyspnea Respiratory Respiratory: Denies cough and Denies dyspnea Gastrointestinal Gastrointestinal: Denies abdominal pain, Denies nausea and Denies vomiting Integumentary/Breasts Skin/Breast: Reports change in pigmentation Neurologic Neurologic: Denies weakness Exam Const General: no acute distress Orientation: alert HENMT Head: normal to inspection Ears: external ears normal General nose exam: external nose normal Mouth: moist mucous membranes Eyes General: appearance normal, both eyes and all related structures Neck Neck: normal visual inspection Resp Effort & Inspection: normal respiratory effort and able to speak in complete sentences Cardio Rate: regular rate Neuro General: patient alert and patient oriented x3 Extrem General: full ROM and capillary refill normal Psych Mental Status: mental status grossly normal Course Vital Signs Vital signs: Vital Signs Temperature 37.1 C 08/21/24 20:02 Pulse 40 L 08/21/24 20:02 Respiratory Rate 18 08/21/24 20:02 Blood Pressure 150/47 H 08/21/24 20:02 Pulse Oximetry 96 08/21/24 20:02 Temperature 37.1 C 08/21/24 20:02 Temperature Source Tympanic 08/21/24 20:02 Pulse 40 L 08/21/24 20:02 Respiratory Rate 18 08/21/24 20:02 Blood Pressure 150/47 H 08/21/24 20:02 Pulse Oximetry 96 08/21/24 20:02 Pain Level 0 07/13/25 20:02 Comment PT states that his HR is usually low 08/21/24 20:02 Medical Decision Making 83-year-old male with a history of PVCs, GERD, hypertension, coronary artery disease who is on aspirin comes in with some discoloration and mild swelling of the posterior left index finger just proximal to this on the left hand. He denies any systemic symptoms such as fevers or chills and denies any pain. He has what appears to be bruising of the posterior left finger and just proximal to this a few centimeters. He has no tenderness. He is full range of motion of the finger. The very very mild swelling of the posterior finger. He has intact sensation and pulses. There is no severe pain. I suspect contusion given the appearance send he does note that over the weekend he was doing repetitive movements at a shooting event and thinks he may have hit his hand on part of the hand when he was shooting. Given lack of pain I do not feel x-rays are indicated. Advised that should resolve over the course of a week or 2. No findings on exam or history to suggest infectious etiology. He will follow-up with his PCP if not improving and return precautions given Differential Diagnosis Differential Diagnosis: Hematoma, contusion Quality:SDOH Health Related Social Needs: Health related social needs inadequate housing PFSH All Active Problems (Updated 08/21/24 @ 20:15 by Charles Hanks MD) Contusion of hand, left (Acute) Impairment of speech discrimination (Acute) Sacroiliac joint dysfunction of left side (Acute) Lumbar spinal stenosis (Acute) Trochanteric bursitis of left hip (Acute) Coronary artery disease (Chronic) 2013 s/p NSTEMI, RCA stent PVCs (premature ventricular contractions) (Chronic) Nonsustained ventricular tachycardia (Chronic) Bradycardia (Chronic) Right bundle branch block (Chronic) Hypertension (Chronic) Psoriatic arthritis (Chronic) Followed by rheumatology at [facility] [place] Psoriasis (Chronic) Prediabetes (Chronic) Peripheral polyneuropathy (Chronic) Sensorineural hearing loss (SNHL) of both ears (Chronic) Obesity (Chronic) Gout (Chronic) GERD (gastroesophageal reflux disease) (Chronic) BPH loc w urin obs/LUTS (Chronic) Medical History Tubulovillous adenoma of colon 2017 colonoscopy Tubular adenoma of colon 2017 colonoscopy NSTEMI (non-ST elevated myocardial infarction) (06/28/13) june 2013. RCA stent. F/U with cardiology Surgical History Status post left knee replacement (04/19/19) S/P right knee surgery (10/18/19) Right Knee Arthroscopic Partial Lateral and Medial Menisectomies S/P colonoscopy Status post bilateral cataract extraction Family History Mother , age 65 Lung cancer Father , AGE 45 Hodgkins disease Brother Essential hypertension Stroke Hyperlipidemia Heart disease Diabetes Hypertension Son Substance use disorder Son No problems noted. Daughter No problems noted. Maternal Grandfather No problems noted. Paternal Grandfather No problems noted. Maternal Grandmother No problems noted. Paternal Grandmother No problems noted. Social History Smoking/Tobacco Use Status: Former Tobacco Use tobacco type: cigarettes Quit Date: 02/09/83 Tobacco: How many years used: 25 Second Hand Exposure: Yes Smoking risk assessment performed?: Yes Alcohol Intake: current Alcohol Intake frequency: a few times a month Alcohol type: beer Drug use: Never Substance use type: does not use Adopted: No Caregiver/Support person: No Foster care: No Household members: spouse Housing: house Number of Children: 3 number of grandchildren: 7 Communication Needs: Hard of Hearing and Corrective Lenses Education Level: high school Details: 12th Do you need help understanding health information?: Never current occupation: retired printer Pets and animals: Yes Pets and animals: cat(s) Sexually active: No Do you think of yourself as: straight/heterosexual Current gender identity: male What is your relationship status?: How often do you talk on the phone with friends or family?: twice per week How often do you get together with friends or relatives?: twice per week How often do you attend rastafari or methodist services?: 4 or more times per year Do you belong to any clubs or organized social groups?: yes Panel score (0-1 are the most socially isolated patients): 4 What type of physical activity do you participate in: other Details: cardiac rehab-1hr twice a week Duration: 30-45 minutes/day Frequency: 1-2 times per week Meaghan/Episcopalian: Church Special meaghan needs: No Agree to transfusion: Yes Seatbelt use: always Helmet use: No Drive intox or ride w/intox road driver: No Working smoke detector in home: Yes Carbon monox detector in home: No Do you feel safe at home: Yes Do you feel safe in your relationship?: Yes Victim of physical abuse: No Victim of emotional abuse: No Victim of sexual abuse: No Would you like helpful sources: No PAWSS Have you Been Recently Intoxicated or Drunk Within the Last 30 days?: No Have you Ever Experienced Previous Episodes of Alcohol Withdrawal?: No Have you ever Experienced Withdrawal Seizures?: No Have you ever Experienced Delirium Tremens(DT)s?: No Have you ever undergone Alcohol Rehabilitation Treatment (i.e, inpt ot outpatient treatment programs)?: No Have you ever Experienced Blackouts?: No Have you ever Combined Alcohol with other Downers within the last 90 days?: No Have you ever Combined Alcohol with any other Substance of Abuse during the last 90 days?: No Positive Blood Alcohol level on Presentation? [PCS.BAL]: No Evidence of Increased Autonomic Activity (i.e. HR>120, tremor, sweating, agitation, nausea)?: No Result: 0
[2024-08-21 20:32] VITALS: BP 150/47; PULSE 50; RESP 18; TEMP 37.1; O2SAT 96
== END 2024-08-21 20:32 | disposition home or self-care (01) ==
PROVIDERS: Emergency Provider Emergency Medicine; PCP Nurse Practitioner Family
DX: S60.222A Contusion of left hand, initial encounter (principal); I25.10 Atherosclerotic heart disease of native coronary artery without angina pectoris; I25.2 Old myocardial infarction; I10 Essential (primary) hypertension; Z87.891 Personal history of nicotine dependence; W22.8XXA Striking against or struck by other objects, initial encounter; Y93.89 Activity, other specified
CPT/HCPCS: 99283

== ENCOUNTER 2024-09-08 11:00 | Outpatient (RCR) | payer SELFPAY ==
[2024-08-09 11:37] VITALS: PULSE 39
[2024-08-11 11:23] VITALS: BP 122/78; PULSE 53; O2SAT 96
[2024-08-16 13:40] VITALS: BP 131/67; PULSE 49
[2024-08-18 13:16] VITALS: BP 172/72; PULSE 47
[2024-08-30 12:56] VITALS: BP 133/71; PULSE 48
[2024-09-08 11:18] VITALS: BP 131/68; PULSE 53; O2SAT 96
== END 2024-09-08 23:59 | disposition home or self-care (01) ==
LOC: CR 11:00
PROVIDERS: PCP Nurse Practitioner Family; Visit Provider Internal Medicine Cardiovascular Disease
DX: R69 Illness, unspecified (principal)

== ENCOUNTER 2024-10-04 11:00 | Outpatient (RCR) | payer SELFPAY ==
[2024-09-09 00:23] VITALS: BP 131/68; PULSE 53
[2024-09-13 13:52] VITALS: BP 108/53; PULSE 40
[2024-09-15 11:26] VITALS: BP 149/75; PULSE 48; O2SAT 95
[2024-09-27 11:20] VITALS: BP 120/68; PULSE 38
[2024-09-29 13:11] VITALS: PULSE 52; O2SAT 95
[2024-10-04 11:21] VITALS: BP 130/58; PULSE 45
== END 2024-10-09 23:59 | disposition home or self-care (01) ==
LOC: CR 11:00
PROVIDERS: PCP Nurse Practitioner Family; Visit Provider Internal Medicine Cardiovascular Disease
DX: R69 Illness, unspecified (principal)

== ENCOUNTER 2024-11-08 11:00 | Outpatient (RCR) | payer SELFPAY ==
[2024-10-11 11:26] VITALS: BP 138/68; PULSE 63
[2024-10-13 12:58] VITALS: BP 144/62; PULSE 54
[2024-10-20 11:00] VITALS: BP 132/68; PULSE 53
[2024-10-25 15:05] VITALS: BP 148/72; PULSE 40
[2024-10-27 15:05] VITALS: BP 122/64
[2024-11-03 11:00] VITALS: BP 118/52; PULSE 41
[2024-11-08 12:09] VITALS: BP 122/58; PULSE 44
== END 2024-11-08 23:59 | disposition home or self-care (01) ==
LOC: CR 11:00
PROVIDERS: PCP Nurse Practitioner Family; Visit Provider Internal Medicine Cardiovascular Disease
DX: R69 Illness, unspecified (principal)

== ENCOUNTER 2024-12-06 11:00 | Outpatient (RCR) | payer SELFPAY ==
[2024-11-09 00:10] VITALS: BP 122/58; PULSE 44
[2024-11-10 11:17] VITALS: BP 160/62; PULSE 61
[2024-11-15 11:28] VITALS: BP 142/72; PULSE 58
[2024-11-24 11:21] VITALS: BP 142/80; PULSE 52
[2024-11-29 11:28] VITALS: BP 152/70; PULSE 40
[2024-12-01 11:37] VITALS: BP 160/80; PULSE 45
[2024-12-06 11:25] VITALS: BP 168/62; PULSE 41
== END 2024-12-09 23:59 | disposition home or self-care (01) ==
LOC: CR 11:00
PROVIDERS: PCP Nurse Practitioner Family; Visit Provider Internal Medicine Cardiovascular Disease
DX: R69 Illness, unspecified (principal)

== ENCOUNTER 2024-12-08 13:54 | Outpatient (CLI) | payer MEDICARE, SELFPAY ==
[2024-12-08 14:10] VITALS: BP 156/79; PULSE 51; RESP 20; TEMP 37; O2SAT 97
[2024-12-08 15:05] VITALS: PULSE 37; PULSE 68; RESP 18; O2SAT 97
[2024-12-08 15:06] VITALS: BP 193/92; PULSE 63; PULSE 69; RESP 16; O2SAT 97
[2024-12-08 15:10] VITALS: PULSE 55; PULSE 61; RESP 17; O2SAT 95
[2024-12-08 15:17] VITALS: BP 155/103; PULSE 58
--- NOTE | 2024-12-08 15:18 | PDOC.PAIN ---
Date of service: 12/08/24 Time of Service: 15:18 Pain Managment Procedure Note Procedure Note Procedure Note: PROCEDURE NOTE Left Lumbar Medial Branch Blocks Date of Service: December 08, 2024 Patient: Bayron Neil Provider: Erlin Hilliard DO, MPH Bayron Carie Neil has been referred to the Pain Management Center for lumbar medial branch blocks. 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 His symptoms are unchanged. Bayron was interviewed and the medical records were reviewed. There were no medical, pharmacologic, radiographic or other structural contraindications to attempting fluoroscopically guided local anesthetic lumbar medial branch blocks. Risks and potential side effects were discussed. I also discussed the potential benefit(s) of the procedure with Bayron, and voiced concerns were addressed. After Bayron was completely informed about the procedure, the printed consent form was signed. A standard time-out procedure was performed. Bayron was placed in the prone position on the fluoroscopy table. Automated blood pressure cuff and pulse oximeter were applied. The skin entry points for approaching the anatomic target points of the segmental medial branches of left L3,L4,L5 were identified with fluoroscopy and marked. The skin at the target site area was thoroughly prepared with Chlorhexadine. The skin was then draped. Next, a 25 gauge 3.5 spinal needle was placed under fluoroscopic guidance down on to the target point (the articular pillar) for each respective segmental medial branch. Position was confirmed in A/P and lateral views. Aspiration revealed no blood or clear fluid. Next, 0.25ml of omnipaque 240 was injected at each level. No contrast following a vascular or neural pattern was visualized under continuous fluoroscopy. Next, 0.25 ml of preservative-free 0.5% bupivicaine was injected at each level. There was no unusual discomfort expressed by Bayron. The needles were withdrawn without difficulty. (49 mls of Omnipaque was wasted) Bayron was observed and was without hemodynamic, neurologic, or allergic reactions. Fluoroscopic images were digitally archived. Provacative testing using the Modified Rl's facet loading test- Left side Directly before the block VAS (0-10) = 6/10 Five minutes after the block VAS (0-10) = 0/10 Percentage relief obtained with this diagnostic block 100% Any improved physical functioning directly after the blocks? Able to move his back much easier. Follow up plans and appointments were discussed with Bayron. Bayron was instructed to keep careful note of how the usual pain was modified by these injections. Specifically, to keep a pain diary for the next 4 hours using a numeric pain scale of 0-10 and report these results. Post procedure instruction was given as documented in the nursing documentation and having met discharge criteria, the patient was discharged from the [facility]. Based on the medial branches blocked today, if they patient has adequate relief and we are able to proceed to radiofrequency ablation, the treatment should result in the denervation of the left L4-L5 and L5-S1 facet joints. We would expect to denervate a total of 2 facets during the radiofrequency ablation. COMMENTS: No apparent complications. Post-procedure pain: VAS= 0/10 Bayron will call back with 0-4 hour post-procedure pain scores. I personally performed the entire procedure. ERLIN HILLIARD DO, MPH ABPM&R-subspecialty board certification in Pain Medicine [facility] [facility] Coding Conscious Sedation used for procedure: No CPT Codes: LMBB (includes Fluoro) Lumbar/Sacral, single lvl - 38206 ([id number] ~G) LMBB (includes Fluoro) Lumbar/Sacral, single lvl *BILATERAL* - [id number] ([id number]~G5) Additional Codes: Date of Service () Diagnoses: Lumbosacral spondylosis without myelopathy
--- NOTE | 2024-12-08 15:22 | DI.RAD_ITS ---
Exam(s) XR PAIN CLINIC LUMBAR SP 2V EXAM: XR PAIN CLINIC LUMBAR SP 2V CLINICAL HISTORY: Dx: Lumbar Spondylosis TECHNIQUE: 2D and realtime digital imaging was performed. CONTRAST MATERIAL: Refer to procedure report. COMPARISON: No exams were available for comparison FINDINGS: Fluoroscopy was provided for Dr. Hilliard during the performance of a lumbar medial branch block. Please refer to the procedure report for complete details. Ka,r=20.4 mGy IMPRESSION: RADIATION DOSE DELIVERED: 0.0 0.0 0
[2024-12-08] MEDS: Omnipaque 240 MG/ML 50 ML BTL IJ (15:25)
[2024-12-08] MEDS: Bupivacaine 0.5% Pres-Free 10 ML VIAL IJ (15:25)
[2024-12-08] MEDS: Nerve Block Tray 1 EACH MC (15:25)
== END 2024-12-08 13:55 | disposition home or self-care (01) ==
LOC: PC 13:54
PROVIDERS: PCP Nurse Practitioner Family; Visit Provider Preventive Medicine Occupational Medicine
DX: M54.50 Low back pain, unspecified (principal); M47.816 Spondylosis without myelopathy or radiculopathy, lumbar region
CPT/HCPCS: 64493; 64494; 72100; J0665; Q9967

== ENCOUNTER 2025-01-03 11:00 | Outpatient (RCR) | payer SELFPAY ==
[2024-12-10 00:06] VITALS: BP 168/62; PULSE 41
[2024-12-13 11:43] VITALS: BP 144/72; PULSE 49
[2024-12-15 11:21] VITALS: BP 162/70; PULSE 40
[2024-12-20 11:10] VITALS: BP 150/68; PULSE 44; O2SAT 96
[2024-12-27 11:53] VITALS: BP 128/58; PULSE 55
[2024-12-29 14:14] VITALS: BP 154/68; PULSE 36
[2025-01-03 11:11] VITALS: BP 132/58; PULSE 35
== END 2025-01-08 23:59 | disposition home or self-care (01) ==
LOC: CR 11:00
PROVIDERS: PCP Nurse Practitioner Family; Visit Provider Internal Medicine Cardiovascular Disease
DX: R69 Illness, unspecified (principal)

== ENCOUNTER 2025-01-11 15:33 | Outpatient (CLI) | payer MEDICARE, SELFPAY ==
--- NOTE | 2025-01-11 06:00 | DI.RAD_ITS ---
Exam(s) XR PAIN CLINIC LUMBAR SP 2V EXAM: XR PAIN CLINIC LUMBAR SP 2V CLINICAL HISTORY: Dx: Lumbar Spondylosis TECHNIQUE: 2D and realtime digital imaging was performed. Radiologist not present. CONTRAST MATERIAL: None. COMPARISON: No exams were available for comparison FINDINGS: Fluoroscopy was provided for pain management therapy. Left lumbar medial branch blocks. Please refer to procedure report or details. Radiation Exposure Index: Ka,r=16.50 mGy IMPRESSION: As above. RADIATION DOSE DELIVERED:
[2025-01-11 14:38] VITALS: BP 125/86; PULSE 59; RESP 18; TEMP 36.4; O2SAT 97
[2025-01-11 15:36] VITALS: PULSE 45; PULSE 72; RESP 17; O2SAT 96
[2025-01-11 15:37] VITALS: BP 125/80; PULSE 55; PULSE 65; RESP 20; O2SAT 97
[2025-01-11 15:40] VITALS: PULSE 42; PULSE 76; RESP 11; O2SAT 98
[2025-01-11 15:47] VITALS: BP 157/122; PULSE 60; PULSE 77; RESP 16; O2SAT 97
[2025-01-11 15:48] VITALS: PULSE 42; PULSE 66; RESP 14; O2SAT 97
[2025-01-11] MEDS: Nerve Block Tray 1 EACH MC (15:54)
[2025-01-11] MEDS: Omnipaque 240 MG/ML 50 ML BTL IJ (15:54)
[2025-01-11] MEDS: Bupivacaine 0.5% Pres-Free 10 ML VIAL IJ (15:54)
--- NOTE | 2025-01-12 15:05 | PDOC.PAIN_ITS ---
Date of service: 01/11/25 Time of Service: 15:45 Pain Managment Procedure Note Procedure Note Procedure Note: PROCEDURE NOTE Left Lumbar Medial Branch Blocks Date of Service: January 11, 2025 Patient: Bayron Neil Provider: Marek Hilliard DO, MPH Bayron Carie Neil has [facility] for lumbar medial branch blocks. 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 His pain is unchanged. Matthew was interviewed and the medical records were reviewed. There were no medical, pharmacologic, radiographic or other structural contraindications to attempting fluoroscopically guided local anesthetic lumbar medial branch blocks. Risks and potential side effects were discussed. I also discussed the potential benefit(s) of the procedure with Bayron, and voiced concerns were addressed. After Bayron was completely informed about the procedure, the printed consent form was signed. A standard time-out procedure was performed. Bayron was placed in the prone position on the fluoroscopy table. Automated blood pressure cuff and pulse oximeter were applied. The skin entry points for approaching the anatomic target points of the segmental medial branches of Left L3,L4,L5 were identified with fluoroscopy and marked. The skin at the target site area was thoroughly prepared with Chlorhexadine. The skin was then draped. Next, a 25 gauge 3.5 spinal needle was placed under fluoroscopic guidance down on to the target point (the articular pillar) for each respective segmental medial branch. Position was confirmed in A/P and lateral views. Aspiration revealed no blood or clear fluid. Next, 0.25ml of omnipaque 240 was injected at each level. No contrast following a vascular or neural pattern was visualized under continuous fluoroscopy. Next, 0.25 ml of preservative-free 0.5% bupivicaine was injected at each level. There was no unusual discomfort expressed by Bayron. The needles were withdrawn without difficulty. (49 mls of Omnipaque was wasted) Bayron was observed and was without hemodynamic, neurologic, or allergic reactions.? Fluoroscopic images were digitally archived. Provacative testing using the Modified Lr's facet loading test- Left side Directly before the block VAS (0-10) = 3/10 Five minutes after the block VAS (0-10) = 0/10 Percentage relief obtained with this diagnostic block 100% Any improved physical functioning directly after the blocks? Able to move without much pain Follow up plans and appointments were discussed with Bayron. Bayron was instructed to keep careful note of how the usual pain was modified by these injections. Specifically, to keep a pain diary for the next 4 hours using a numeric pain scale of 0-10 and report these results. Post procedure instruction was given as documented in the nursing documentation and having met discharge criteria, the patient was [facility] Based on the medial branches blocked today, if they patient has adequate relief and we are able to proceed to radiofrequency ablation, the treatment should result in the denervation of the left L4-L5 and L5-S1 facet joints. We would expect to denervate a total of 2 facets during the radiofrequency ablation. COMMENTS: No apparent complications. Post-procedure pain: VAS= 0/10 Bayron will call back with 0-4 hour post-procedure pain scores. I personally performed the entire procedure. MAREK HILLIARD DO, MPH ABPM&R-subspecialty board certification in Pain Medicine [facility] Coding Conscious Sedation used for procedure: No CPT Codes: LMBB (includes Fluoro) Lumbar/Sacral, 2nd lvl - 69735 ([id number] ~G) LT - LEFT SIDE LMBB (includes Fluoro) Lumbar/Sacral, single lvl - 15323 ([id number] ~G) Additional Codes: Date of Service () Diagnoses: Lumbar spondylosis without myelopathy
== END 2025-01-11 15:34 | disposition home or self-care (01) ==
LOC: PC 15:34
PROVIDERS: PCP Nurse Practitioner Family; Visit Provider Preventive Medicine Occupational Medicine
DX: M54.50 Low back pain, unspecified (principal); M47.816 Spondylosis without myelopathy or radiculopathy, lumbar region
CPT/HCPCS: 64493; 64494; 72100; J0665; Q9967